=== PATIENT | female | born 1945 | race Caucasian/White ===

== ENCOUNTER 2017-05-05 12:13 | Outpatient (CLI) | payer MEDICARE, MEDICAID ==
[2017-05-05 15:14] LABS: #Eosinphils 0.4 thou/uL (0.0-0.7); #Lymphocytes 1.8 thou/uL (1.20-3.40); #Monocytes 0.5 thou/uL (0.11-0.59); #Neutrophils 4.5 thou/uL (1.40-6.50); %Basophils 0.5 % (0.0-1.0); %Eosinophils 5.8 % (0.0-10.0); %Lymphocytes 24.7 % (21.0-51.0); %Monocytes 7.4 % (0.0-10.0); Hematocrit 41.2 % (36.0-47.0); Mean Platelet Volume 6.8 fL (7.4-10.4); Red Blood Cell (RBC) Count 5.15 mill/uL (4.20-5.40); White Blood Cell (WBC) Count 7.4 thou/uL (4.8-10.8)
[2017-05-05 15:31] LABS: Prothrombin Time 12.8 SEC (12.0-14.7)
[2017-05-05 15:32] LABS: Bilirubin Negative (Negative); Blood, Urine Negative (Negative); Glucose, Urine (Dipstick) Negative (Negative); Ketone, Urine Negative (Negative); Nitrite Positive (Negative); Protein, Urine (Dipstick) Negative (Neg-Trace); Urobilinogen 0.2 mg/dL (0.2-1.0)
[2017-05-05 15:38] LABS: Anion Gap 14 mmol/L (10-20); BUN (Urea Nitrogen) 15 mg/dL (9.8-20.1); Calc. Creatinine Clearance 0 mL/min (70-130); Calcium 9.3 mg/dL (7.8-10.44); Carbon Dioxide 20 mmol/L (23-31); Chloride 105 mmol/L (98-107); Estimated GFR-MDRD 63
[2017-05-05 15:42] LABS: Bacteria/HPF 4+ HPF (None Seen); Hyaline Casts/LPF 0-3 HYALINE CAST LPF (0-3 Hyaline); RBC/HPF 0-3 HPF (0-3); Squamous Epithelial 0-3 HPF (0-3)
--- NOTE | 2017-05-05 15:49 | RAD ---
PA AND LATERAL CHEST: History: Pre-operative evaluation. FINDINGS: Comparison made with 02-12-16. The heart size is normal. The lungs are well expanded with stable chronic changes. No confluent area s of consolidation, pneumothorax or pleural effusions are seen. Degenerative changes of the spine. IMPRESSION: No acute process. POS: [facility]
--- NOTE | 2017-05-06 07:28 | EKG ---
Test Reason : PREOP Blood Pressure : / mmHG Vent. Rate : 056 BPM Atrial Rate : 056 BPM P-R Int : 202 ms QRS Dur : 090 ms QT Int : 480 ms P-R-T Axes : 062 -10 -25 degrees QTc Int : 463 ms Poor data quality, interpretation may be adversely affected Sinus bradycardia Nonspecific ST abnormality Abnormal ECG When compared with ECG of 12-FEB-2016 09:16, ST now depressed in Inferior leads QT has lengthened Confirmed by DR. Андрей MILNER ([id number]) on 05/06/2017 7:28:13 AM Referred By: REJI Confirmed By:DR. Андрей MILNER
== END 2017-05-05 12:14 | disposition home or self-care (01) ==
LOC: LABBT 12:13
PROVIDERS: ATTEND Orthopaedic Surgery
DX: Z01.818 Encounter for other preprocedural examination (principal); M16.12 Unilateral primary osteoarthritis, left hip
CPT/HCPCS: 71020; 80048; 81001; 85025; 85610; 85730; 87081; 93005; 93010

== ENCOUNTER 2017-05-05 12:30 | Inpatient (IN) | payer MEDICARE, MEDICAID ==
[2017-05-26] MEDS ORDERED: Senokot S 8.6-50 MG TAB PO PRN (08:59)
[2017-05-26] MEDS ORDERED: Ondansetron HCl/PF 4 MG/2 ML Vial IVP PRN ×2 (09:00→16:25)
[2017-05-26] MEDS ORDERED: HYDROcodone/Acetaminophen 10/325 mg Tablet PO PRN ×2 (09:00)
[2017-05-26] MEDS ORDERED: Tranexamic Acid 1,000 MG in Sodium Chloride 0.9% 100 ML IVPB SCH (09:00)
[2017-05-26] MEDS ORDERED: traMADol HCl 50 MG TAB PO PRN (09:00)
[2017-05-26] MEDS ORDERED: diphenhydrAMINE 25 MG CAP PO PRN ×2 (09:00→16:25)
[2017-05-26] MEDS ORDERED: Fentanyl 100 MCG/2 ML VIAL SLOW IVP PRN ×2 (09:00)
[2017-05-26] MEDS ORDERED: Promethazine HCl 25 MG/ML VIAL IM PRN ×3 (09:00→16:25)
[2017-05-26] MEDS ORDERED: Acetaminophen 325 MG TAB PO PRN (09:00)
[2017-05-26] MEDS ORDERED: Zolpidem Tartrate 5 MG TAB PO PRN ×2 (09:00→16:25)
[2017-05-26] MEDS ORDERED: CEFAZOLIN/Water 2 GM/20 ML SYRINGE ONE (11:37)
[2017-05-26] MEDS ORDERED: Tranexamic Acid 1,000 MG/100 ML BAG ONE ×2 (11:37→15:30)
[2017-05-26] MEDS ORDERED: Midazolam HCl 2 mg/2 ml Vial ONE ×2 (11:45→15:57)
[2017-05-26] MEDS ORDERED: Fentanyl 100 MCG/2 ML VIAL ONE ×4 (11:46→17:13)
[2017-05-26] MEDS ORDERED: Phenylephrine 10 MG/NS 250 ML 250 ML ONE (13:09)
[2017-05-26] MEDS ORDERED: Bupivacaine/Epinephrine 0.25% 30 ML VIAL ONE (13:09)
[2017-05-26] MEDS ORDERED: Vancomycin HCl 1.5 GM, Admixture Fee 1 EACH in Sodium Chloride 0.9% 250 ML 300 ML IVPB SCH (13:30)
[2017-05-26] MEDS ORDERED: PHENYLEPHRINE-NS 100 MCG/ML 10 ML SYRINGE ONE (13:41)
[2017-05-26] MEDS ORDERED: Dexamethasone 20 MG/5 ML VIAL ONE (13:41)
[2017-05-26] MEDS ORDERED: ePHEDrine/0.9% NaCl/PF SYRINGE 50 mg/10 ml ONE (13:41)
[2017-05-26] MEDS ORDERED: Glycopyrrolate 0.2 MG/ML 5 ML SYRINGE ONE (13:41)
[2017-05-26] MEDS ORDERED: Propofol 200 MG/20 ML VIAL ONE (13:41)
[2017-05-26] MEDS ORDERED: Promethazine HCl 25 MG/ML VIAL SLOW IVP PRN (14:50)
[2017-05-26] MEDS ORDERED: Bupivacaine 0.25% HCL 30 ML VIAL ONE (15:23)
[2017-05-26] MEDS ORDERED: Morphine 4 MG/ML VIAL ONE (15:57)
[2017-05-26] MEDS ORDERED: Naloxone HCl 0.4 mg/ml Vial IV PRN (16:25)
[2017-05-26] MEDS ORDERED: HYDROmorphone 10 mg/100 ml CADD IVPB PRN (16:25)
[2017-05-26] MEDS ORDERED: diphenhydrAMINE 50 MG/ML VIAL IM PRN (16:25)
[2017-05-26] MEDS ORDERED: diphenhydrAMINE 50 MG/ML VIAL IVP PRN (16:25)
[2017-05-26] MEDS ORDERED: [UNRECOGNIZED DRUG - REMARK] FS SCH (16:30)
[2017-05-26] MEDS ORDERED: diphenhydrAMINE 50 MG/ML VIAL ONE (17:47)
[2017-05-26] MEDS ORDERED: HYDROmorphone HCl/PF 0.1 MG/ML 100 ML ONE (18:13)
[2017-05-26] MEDS: Ketorolac Tromethamine 30 MG/ML VIAL IVP SCH (19:22)
--- NOTE | 2017-05-26 20:13 | RAD ---
LEFT HIP TWO VIEWS 05/26/17 HISTORY: Left hip prosthesis. FINDINGS: Total hip prosthesis is in place. No complication is evident. Soft tissue gas is noted. IMPRESSION: Left hip prosthesis is in good radiographic position. POS: [facility]
[2017-05-26] MEDS: Metoprolol Tartrate 25 MG TAB PO SCH ×2 (21:48→21:51)
[2017-05-26] MEDS: Aspirin 325 MG TAB PO SCH ×2 (21:50)
[2017-05-26] MEDS: CEFAZOLIN/Water 2 GM/20 ML SYRINGE SLOW IVP SCH ×2 (21:51→21:53)
[2017-05-26] MEDS: Amlodipine 10 MG TAB PO SCH (21:51)
[2017-05-26] MEDS: Sodium Chloride 0.9% 1,000 ML IV SCH ×2 (21:51→21:52)
[2017-05-26] MEDS: tiZANidine HCl 4 MG TAB PO SCH (21:52)
--- NOTE | 2017-05-26 23:14 | PDOC.PN ---
- Subjective Encounter Start Date: 05/26/17 Encounter Start Time: 23:12 CC; S/P Left KRIS SUB: Consult called for medical management Pt says pain controlled - Objective Vital Signs & Weight: Vital Signs (12 hours) Temp Pulse Resp BP Pulse Ox 05/26/17 21:51 74 05/26/17 18:51 97.6 F 74 18 125/52 L 92 L Weight Weight 200 lb Phys Exam - Physical Examination Constitutional: NAD HEENT: moist MMs Neck: no JVD Respiratory: no wheezing, no rales, no rhonchi Cardiovascular: RRR, no significant murmur, no rub Gastrointestinal: soft, non-tender left hip decrease range of motion Dx/Plan - Plan * . Pt is 72 yrs old female now admitted to hospital due to left KRIS 1. S/P Left KRIS + Pain + DVT prophylaxis: Management per primary team Monitor respiratory status closely 2. H/O HTN: Monitor bp closely Continue BP meds 3. H/O Insomnia + Macular degeneration: Continue home meds Case d/w pt & RN
[2017-05-27] MEDS: tiZANidine HCl 4 MG TAB PO SCH ×3 (01:14→21:04)
[2017-05-27] MEDS: Ketorolac Tromethamine 30 MG/ML VIAL IVP SCH ×4 (01:16→21:01)
[2017-05-27 05:21] LABS: Mean Platelet Volume 7.3 fL (7.4-10.4); Red Blood Cell (RBC) Count 3.85 mill/uL (4.20-5.40); White Blood Cell (WBC) Count 8.1 thou/uL (4.8-10.8)
[2017-05-27] MEDS: Sodium Chloride 0.9% 1,000 ML IV SCH ×3 (06:51→23:09)
[2017-05-27] MEDS: Levothyroxine Sodium 75 MCG TAB PO SCH (06:53)
[2017-05-27] MEDS: Metoprolol Tartrate 25 MG TAB PO SCH ×2 (08:15→21:03)
[2017-05-27] MEDS: Amlodipine 10 MG TAB PO SCH (08:16)
[2017-05-27] MEDS: Aspirin 325 MG TAB PO SCH ×2 (08:16→21:03)
[2017-05-27] MEDS: Senokot S 8.6-50 MG TAB PO SCH ×2 (08:16→21:09)
[2017-05-27] MEDS: Multivitamin W/ Minerals 1 TAB PO SCH (08:17)
[2017-05-27] MEDS: Ferrous Gluconate 324 MG TAB PO SCH ×2 (08:17→18:13)
[2017-05-27] MEDS ORDERED: FLU VACC TS2017-18 (>65YR) 0.5 ML SYRINGE IM ONE (08:30)
[2017-05-27 08:32] LABS: Anion Gap 12 mmol/L (10-20); BUN (Urea Nitrogen) 15 mg/dL (9.8-20.1); Calc. Creatinine Clearance 90 mL/min (70-130); Calcium 8.5 mg/dL (7.8-10.44); Carbon Dioxide 22 mmol/L (23-31); Chloride 107 mmol/L (98-107); Estimated GFR-MDRD 67
[2017-05-27 08:44] VITALS: BMI 36.0
[2017-05-27] MEDS ORDERED: Fentanyl 20 MCG/ML 250 ML IVPB SCH (12:30)
--- NOTE | 2017-05-27 16:08 | PDOC.PN ---
- Subjective Encounter Start Date: 05/27/17 Encounter Start Time: 16:07 Patient seen and examined. No new complaints. No overnight events - Objective MAR Reviewed: Yes Vital Signs & Weight: Vital Signs (12 hours) Temp Pulse Resp BP Pulse Ox Pulse Ox Pulse Ox 05/27/17 16:05 98.6 F 91 16 108/63 62 L 05/27/17 11:40 98.7 F 58 L 12 101/61 94 L 05/27/17 11:18 92 L 89 L 05/27/17 08:16 74 05/27/17 08:10 98.2 F 73 16 109/65 94 L Pulse Ox 05/27/17 16:05 05/27/17 11:40 05/27/17 11:18 90 L 05/27/17 08:16 05/27/17 08:10 Weight Admit Weight 200 lb Weight 200 lb I&O: 05/26/17 05/27/17 05/28/17 06:59 06:59 06:59 Output Total 1725 Balance -1725 Result Diagrams: 05/27/17 04:37 05/27/17 04:34 Phys Exam - Physical Examination Constitutional: NAD HEENT: PERRLA Neck: no JVD Respiratory: no wheezing Cardiovascular: RRR Gastrointestinal: non-tender Musculoskeletal: pulses present Neurological: moves all 4 limbs Psychiatric: A&O x 3 Dx/Plan (1) Left hip pain Code(s): M25.552 - PAIN IN LEFT HIP Status: Acute Comment: s/p surg (2) Obesity (BMI 30-39.9) Code(s): E66.9 - OBESITY, UNSPECIFIED Status: Acute (3) Status post total hip replacement, right Code(s): Z96.641 - PRESENCE OF RIGHT ARTIFICIAL HIP JOINT Status: Acute (4) Hyperlipidemia Code(s): E78.5 - HYPERLIPIDEMIA, UNSPECIFIED Status: Chronic (5) Hypertension Code(s): I10 - ESSENTIAL (PRIMARY) HYPERTENSION Status: Chronic Qualifiers: Hypertension type: essential hypertension Qualified Code(s): I10 - Essential (primary) hypertension Comment: Resume home Norvasc 5mg daily, Metoprolol 25mg BID (6) Hypothyroidism Code(s): E03.9 - HYPOTHYROIDISM, UNSPECIFIED Status: Chronic - Plan * f/u ortho plan * continue current mx
[2017-05-27] MEDS ORDERED: Bisacodyl 10 MG SUPP PR SCH (17:45)
[2017-05-28 04:26] LABS: #Eosinphils 0.4 thou/uL (0.0-0.7); #Lymphocytes 1.3 thou/uL (1.20-3.40); #Monocytes 0.6 thou/uL (0.11-0.59); #Neutrophils 4.9 thou/uL (1.40-6.50); %Basophils 0.5 % (0.0-1.0); %Eosinophils 6.1 % (0.0-10.0); %Lymphocytes 17.7 % (21.0-51.0); %Monocytes 7.9 % (0.0-10.0); Hematocrit 30.1 % (36.0-47.0); Mean Platelet Volume 7.5 fL (7.4-10.4); Red Blood Cell (RBC) Count 3.68 mill/uL (4.20-5.40); White Blood Cell (WBC) Count 7.2 thou/uL (4.8-10.8)
[2017-05-28 04:30] LABS: Hematocrit 30.4 % (36.0-47.0); Mean Platelet Volume 7.1 fL (7.4-10.4); White Blood Cell (WBC) Count 7.1 thou/uL (4.8-10.8)
[2017-05-28 04:41] LABS: Anion Gap 10 mmol/L (10-20); BUN (Urea Nitrogen) 11 mg/dL (9.8-20.1); Calc. Creatinine Clearance 87 mL/min (70-130); Calcium 8.9 mg/dL (7.8-10.44); Carbon Dioxide 24 mmol/L (23-31); Chloride 107 mmol/L (98-107); Estimated GFR-MDRD 67; Phosphorus 3.2 mg/dL (2.3-4.7)
[2017-05-28] MEDS: Ketorolac Tromethamine 30 MG/ML VIAL IVP SCH ×2 (05:22→13:17)
[2017-05-28] MEDS: Levothyroxine Sodium 75 MCG TAB PO SCH (05:23)
[2017-05-28] MEDS: Aspirin 325 MG TAB PO SCH (08:32)
[2017-05-28] MEDS: Metoprolol Tartrate 25 MG TAB PO SCH (08:32)
[2017-05-28] MEDS: Ferrous Gluconate 324 MG TAB PO SCH (08:32)
[2017-05-28] MEDS: Amlodipine 10 MG TAB PO SCH (08:32)
[2017-05-28] MEDS: tiZANidine HCl 4 MG TAB PO SCH (08:33)
[2017-05-28] MEDS: Multivitamin W/ Minerals 1 TAB PO SCH (08:33)
[2017-05-28] MEDS: Senokot S 8.6-50 MG TAB PO SCH ×2 (08:33→08:35)
[2017-05-28] MEDS ORDERED: HYDROcodone/Acetaminophen 10/325 mg Tablet PO PRN (09:27)
[2017-05-28] MEDS: HYDROcodone/Acetaminophen 10/325 mg Tablet PO PRN ×2 (09:38→13:13)
[2017-05-28 11:44] VITALS: BP 93/57; TEMP 98.5
--- NOTE | 2017-05-29 03:31 | DIS ---
DATE OF DISCHARGE: 05/28/2017 DISCHARGE DISPOSITION: Home. PRIMARY DISCHARGE DIAGNOSES: Elective left total hip replacement arthroplasty. DISCHARGE MEDICATIONS: Zanaflex 4 mg twice a day, Senokot 6 mg as needed, Lopressor 25 mg twice a da y, levothyroxine 75 mcg p.o. daily, Binford 10/325 mg 1-2 tablets q.6 hours as needed, vitamin D3 2000 units p.o. daily, aspirin 325 mg twice a day and amlodipine 10 mg daily. CODE STATUS: Full code. ALLERGIES: CITALOPRAM, DULOXETINE, GABABENTIN, PREGABALIN and SERTRALINE. HOSPITAL COURSE: Ms. Solis is a 72-year-old female who was admitted for an elective left total hip arthroplasty. She underwent the procedure on 05/26/2017. [facility] was consulted for medical management. She has a history of hypertension and insomnia. These were both stable during her hospital stay and she had an uneventful postoperative course and was subsequently able to be disc harged home on 05/28/2017 in good condition.
--- NOTE | 2017-06-02 16:37 | OP ---
DATE OF PROCEDURE: 05/26/2017 PREOPERATIVE DIAGNOSIS: Left hip end stage bicompartmental osteoarthritis. POSTOPERATIVE DIAGNOSIS: Left hip end stage bicompartmental osteoarthritis. OPERATIVE PROCEDURE: Press-fit left total hip arthroplasty. SURGEON: Marquis Garcia M.D. TELETYPESETTER MONITOR: Mike Bradford PA-C ANESTHESIA: General via endotracheal tube augmented with indwelling epidural. COMPONENTS USED: [employer] size 3 pressfit hip stem with a 50 mm pressfit acetabular shell , 36 mm fixed bearing insert, and 40-5 femoral head. FINDINGS: End-stage severe degenerative bicompartmental disease, bone on bone arthrosis, periarticul ar osteophyte formation, large serous effusion, hypertrophic synovium. ESTIMATED BLOOD LOSS: 100 mL. DRAINS: None. SPECIMENS: None. COUNTS: Correct. INDICATIONS FOR SURGERY: Shell is a 72-year-old white female who has had progressive left hip, groin , and thigh pain amplified with standing and walking for the last 5-7 years. She has failed conserva tive management and elected to proceed with total hip arthroplasty as definitive treatment of her florencia n. PROCEDURE IN DETAIL: After informed consent was obtained in the preoperative holding area, the patie nt was taken to the operative suite where general anesthesia was induced. The patient was then posit ioned in the lateral decubitus position. The hip was then prepped and draped in usual sterile fashio n. The patient received preoperative antibiotics. Prior to incision, time-out was called and all me mbers of the surgical team agreed upon site, surgeon, and patient. After this, a longitudinal incisi on was made directly over the trochanter, noted by palpation extending 2 fingerbreadths above and bel ow the trochanter. The deeper subcutaneous layer was undermined with Bovie electrocautery. The ilio tibial band was encountered and incised sharply and the plane below this was developed bluntly. A [facility] retractor was placed to hold this opened. The lateral aspect of the trochanter and the abduct or muscles were encountered and then reflected anteriorly off the trochanter using Bovie electrocaute ry. Once this was completed, the anterior capsule was then encountered and identified and copious ca psulotomy was carried out, exposing the femoral neck and head. Dislocation maneuver was then performe d and an in situ provisional neck cut was then made using the oscillating saw. Attention was then tu rned to acetabular preparation and sequential reaming was carried out up to the appropriate diameter and a trial was then malleted into place with good firm resistance and no pullout. The permanent manuel tabular shell was then malleted squarely into place, as was the appropriate liner. Once completed, t he wound was copiously irrigated and attention was then turned to femoral preparation. Flexion and ex ternal rotation was performed of the exposed thigh and femoral elevators were then placed at the prox imal aspect of the wound. Canal finder was used to establish the length of the canal and sequential reaming was carried out, followed by broaching. Once the appropriate stability was established with the trial broaches with both flexion, extension and rotational stability, we did trial with neutral a nd 2 mm offset incremental necks. Once the appropriate size was decided upon, with good stability no ayesha with flexion, extension, internal and external rotation and shuck being negative, we removed the femoral trial broach and malletted into place the permanent prosthesis with good firm fit, which was also stable to rotation. Again, the hip felt very stable to flexion, extension, internal and externa l rotation. Leg lengths appeared near anatomic clinically and we were quite happy with prosthesis pl acement. Copious irrigation was then carried out through the entirety of the wound. Primary closure of the abductors was accomplished with interrupted #2 Vicryl [id number] stitches and the IT ban d was then closed with interrupted #2 Vicryl, oversewn with a #2 running barbed Quill stitch. Subcut aneous fascia was closed with running barbed Quill stitch and a subcuticular Monocryl barbed Quill st itch was used for skin closure and augmented with skin cement. A sterile dressing was applied. The p rocedure was terminated without any complication. All counts were correct. The patient was awakened in the operative suite and taken to the recovery room in stable condition.
== END 2017-05-28 15:53 | disposition home health service (06) | DRG 470 ==
LOC: SURG B 05-26 08:44 → SJJU 05-26 18:11
PROVIDERS: ADMIT Orthopaedic Surgery; ATTEND Orthopaedic Surgery
PROC: 0SRB01A Replacement of Left Hip Joint with Metal Synthetic Substitute, Uncemented, Open Approach (ICD-10-PCS; principal; 2017-05-26)
DX: M16.12 Unilateral primary osteoarthritis, left hip (principal); E66.9 Obesity, unspecified; I10 Essential (primary) hypertension; G47.00 Insomnia, unspecified; Z88.8 Allergy status to other drugs, medicaments and biological substances; Z79.82 Long term (current) use of aspirin; H35.30 Unspecified macular degeneration; Z96.641 Presence of right artificial hip joint; Z68.36 Body mass index [BMI] 36.0-36.9, adult; E78.5 Hyperlipidemia, unspecified; E03.9 Hypothyroidism, unspecified; Z23 Encounter for immunization
CPT/HCPCS: 36415; 80048; 80069; 85027; 86850; 86900; 86901; 90471; 90682; C1776; G0008; G8978-GP-CM; G8979-GP-CJ; G8987-GO-CL; G8988-GO-CJ; J1100; J1170; J1200; J1885; J2250; J2270; J2704; J3010; J3370; J7050; Q2036; S0020

== ENCOUNTER 2018-03-12 09:15 | Outpatient (CLI) | payer MEDICARE, MEDICAID | END 2018-03-12 09:16 | disposition home or self-care (01) | LOC: BICMRI 09:15 | PROVIDERS: ATTEND Orthopaedic Surgery | DX: M47.26 Other spondylosis with radiculopathy, lumbar region (principal); M48.061 Spinal stenosis, lumbar region without neurogenic claudication; M51.15 Intervertebral disc disorders with radiculopathy, thoracolumbar region | CPT/HCPCS: 72148 ==

== ENCOUNTER 2018-03-23 17:03 | Observation (INO) | payer MEDICARE, MEDICAID ==
[~2018-03-23 17:03] MED LIST: ISOVUE-370 76%-LOCM 1 ML ONE
--- NOTE | 2018-03-23 17:49 | RAD ---
SINGLE VIEW OF THE CHEST: 03/23/18 COMPARISON: 12/11/17 HISTORY: Chest pain and shortness of breath. FINDINGS: Single view of the chest shows a normal sized cardiomediastinal silhouette. There is no evidence of c onsolidation, mass, or pleural effusion. The bones are unremarkable. IMPRESSION: No evidence of acute cardiopulmonary disease. POS: [facility]
[2018-03-23 17:58] LABS: #Basophils 0.1 thou/uL (0.0-0.2); #Eosinphils 0.4 thou/uL (0.0-0.7); #Lymphocytes 1.6 thou/uL (1.20-3.40); #Monocytes 0.5 thou/uL (0.11-0.59); #Neutrophils 5.7 thou/uL (1.40-6.50); %Basophils 0.7 % (0.0-1.0); %Eosinophils 5.2 % (0.0-10.0); %Lymphocytes 19.1 % (21.0-51.0); %Monocytes 5.8 % (0.0-10.0); %Neutrophils 69.3 % (42.0-75.0); Hemoglobin 12.1 g/dL (12.0-16.0); Mean Corpuscular HGB CONC 33.2 g/dL (32.0-36.0); Mean Corpuscular Hemoglobin 26.2 pg (27.0-31.0); Platelet Count 378 thou/uL (130-400); RBC Distribution Width 14.1 % (11.5-14.5); Red Blood Cell (RBC) Count 4.61 mill/uL (4.20-5.40); White Blood Cell (WBC) Count 8.2 thou/uL (4.8-10.8)
[2018-03-23 18:21] LABS: CKMB 2.5 ng/mL (0-6.6); Troponin I Less than 0.010 ng/mL (< 0.028)
[2018-03-23 18:30] LABS: ALT (SGPT) 13 U/L (8-55); AST (SGOT) 15 U/L (5-34); Albumin 4.1 g/dL (3.4-4.8); Alkaline Phosphatase 66 U/L (40-150); Anion Gap 14 mmol/L (10-20); BUN (Urea Nitrogen) 13 mg/dL (9.8-20.1); Bilirubin, Total 0.3 mg/dL (0.2-1.2); CK (CPK) 92 U/L (29-168); Calc. Creatinine Clearance 0 mL/min (70-130); Calcium 9.5 mg/dL (7.8-10.44); Carbon Dioxide 21 mmol/L (23-31); Chloride 109 mmol/L (98-107); Estimated GFR-MDRD 68; Globulin 3.2 g/dL (2.4-3.5); Glucose 94 mg/dL (83-110); Potassium 3.7 mmol/L (3.5-5.1); Protein, Total 7.3 g/dL (6.0-8.3); Sodium 140 mmol/L (136-145)
[2018-03-23] MEDS ORDERED: Acetaminophen 500 MG TAB ONE (20:20)
--- NOTE | 2018-03-23 21:37 | CT ---
CTA OF THE CHEST WITH CONTRAST: 03/23/18 COMPARISON: 01/31/14. HISTORY: Shortness of breath. TECHNIQUE: Multiple contiguous axial images were obtained in a CTA of the chest with contrast per pulmonary embo lism protocol. 3D oblique MIP reformats and direct coronal reformats were performed. FINDINGS: Pulmonary arteries are well opacified without filling defects to suggest pulmonary emboli. There are stable enlarged and calcified hilar and mediastinal lymph nodes. Global cardiomegaly is seen. Calcifi cations are seen in the coronary arteries, aorta, and mitral/aortic valves. Subtle air space opacities are see in the right upper lobe which may represent early infiltrates. A c alcified granuloma is seen in the left lower lobe. No pneumothorax or pleural effusion are seen. The visualized subdiaphragmatic structures are unremarkable. Degenerative changes are seen in the spi ne. IMPRESSION: 1. No evidence of pulmonary thromboembolism. 2. Air space opacities in the right upper lobe may represent new acute infiltrates. POS: [facility]
[2018-03-23 23:40] LABS: Troponin I Less than 0.010 ng/mL (< 0.028)
[2018-03-24 01:12] VITALS: BMI 37.6
[2018-03-24 01:57] LABS: Troponin I Less than 0.010 ng/mL (< 0.028)
[2018-03-24] MEDS ORDERED: Acetaminophen 325 MG TAB PO PRN (08:48)
[2018-03-24] MEDS ORDERED: hydrALAZINE 20 MG/ML VIAL SLOW IVP PRN (08:48)
[2018-03-24] MEDS ORDERED: Senokot S 8.6-50 MG TAB PO PRN (08:48)
[2018-03-24] MEDS ORDERED: Aspirin 325 MG TAB PO SCH (09:00)
[2018-03-24] MEDS ORDERED: Metoprolol Tartrate 25 MG TAB PO SCH (09:00)
[2018-03-24] MEDS ORDERED: Enoxaparin Sodium 40 MG/0.4 ML SYRINGE SC SCH (09:00)
[2018-03-24] MEDS ORDERED: Amlodipine 10 MG TAB PO SCH (09:00)
[2018-03-24] MEDS ORDERED: Benzonatate 100 MG CAP PO SCH (09:00)
[2018-03-24 09:15] LABS: Cardiac Risk 7.2 (Less than 4.5)
--- NOTE | 2018-03-24 13:58 | NM ---
CARDIAC SPECT: HISTORY: A 73-year-old female with chest pain, TIA, and hypertension. TECHNIQUE: A stress only myocardial perfusion scan was performed following the intravenous administration of 27. 2 millicuries of technetium 99m sestamibi. Pharmacologic stress with adenosine was monitored and int erpreted by MARIA LUISA Hardin. FINDINGS: Homogeneous tracer distribution is seen in the myocardial segments on the post stress images. GATED SPECT LVEF: 70%. WALL MOTION EXAM: Normal. IMPRESSION: Normal post stress myocardial perfusion scan. POS: [facility]
[2018-03-24] MEDS ORDERED: Nitroglycerin 2% Ointment 1 INCH/1 GM Packet TOP SCH (14:00)
[2018-03-24] MEDS ORDERED: ADENOSINE 60 MG/20 ML VIAL ONE (15:23)
[2018-03-24 15:34] VITALS: BP 138/61; TEMP 98.1
--- NOTE | 2018-03-24 16:00 | HP ---
PRIMARY CARE PHYSICIAN: CHIEF COMPLAINT: Chest pain. HISTORY OF PRESENT ILLNESS: Ms. Solis is a pleasant 73-year-old female that has a history of hypert ension and history of mitral valve prolapse. She was in her usual state of health until about a week ago. She started having some tightness in her chest. She says it started while she was walking to the bathroom. She says that it cannot get as bad as an 8/10 and she typically gets short of breath w ith it. She says she can be extremely out of breath. She has also noted some swelling in her ankles as well. She denies any associated symptoms such as nausea, vomiting or diaphoresis. She also does not admit to any waking up through the night short of breath and there is no orthopnea. She has als o had no palpitations. Her symptoms got progressively worse and for this reason she came to the ER f or evaluation. In the ER, she had a CT angiogram of her chest which was negative for pulmonary embol ism and she is being admitted for further evaluation. The patient says that she had pneumonia recent ly on the left side and was treated for this, but her symptoms today are not similar to what she had before. She denies any cough or congestion, or fever or chills. REVIEW OF SYSTEMS: All systems were reviewed and are negative except for that mentioned in the histo ry of present illness. PAST MEDICAL HISTORY: Significant for hypertension, mitral valve prolapse, she says she has a heart murmur in her mitral valve and neuropathy. PAST SURGICAL HISTORY: She has had a hysterectomy, tonsillectomy and 2 hip replacement surgeries. ALLERGIES: CITALOPRAM, CYMBALTA, DULOXETINE, GABAPENTIN, ZOLOFT, PAXIL, LYRICA, and XANAX. SOCIAL HISTORY: She is . She has 2 sons. She says that one of her grown sons recently move d in with her. She denies any alcohol use or drug use. She is and she would like to be a D NR and she says [employer] could be her surrogate decision maker, but they have never discussed that. FAMILY HISTORY: Significant for Parkinson's. CURRENT MEDICATIONS: Include Tessalon Perles 100 mg t.i.d., amlodipine 10 mg daily, metoprolol 25 mg twice a day, levothyroxine 75 mcg daily and Senokot p.r.n. PHYSICAL EXAMINATION: GENERAL: She is alert and oriented. She appears to be in no acute distress. She is well-developed and well-nourished. VITAL SIGNS: Blood pressure was 148/67, heart rate 74, respiratory rate of 22, O2 sats 94% on room a ir, temperature was 97.9. HEENT: Her pupils are equal, round, and reactive. Extraocular muscles are intact. Her sclerae are anicteric. Throat: There was no erythema, no exudates. NECK: No adenopathy, no bruits. LUNGS: Clear to auscultation. There was no wheezing, no rales, no rhonchi. She did have some rales in the right base going up to about the mid lung field. Air movement was symmetric. CARDIOVASCULAR: She has a normal S1, S2. I did not appreciate an S3 or S4. No murmurs. She had a grade 2/6 systolic murmur to the axilla. No rubs. ABDOMEN: Obese, it is soft, it is nontender, nondistended. There is no organomegaly. EXTREMITIES: She has got trace pedal edema. Good dorsalis pedis pulses. No calf tenderness. Jessica l skin turgor. NEUROLOGIC: Her cranial nerves II-XII are grossly intact. Muscle strength is 5/5 and it is grossly nonfocal. LABORATORY RESULTS: Sodium is 140, potassium 3.7, chloride is 109, CO2 is 21, BUN of 13, creatinine 0.82 and glucose is 94. Troponin was less than 0.010. White blood cell count 8.2, hemoglobin 12.1, hematocrit is 36.4 and platelet count was 378. White blood cell count 8.2, hemoglobin 12.1, hematocr it is 36.4, platelet count is 378. Troponin 140, potassium 3.7, chloride is 109, CO2 is 21, BUN of 1 3, creatinine 0.82, glucose is 94. Troponins were negative. IMAGING DATA: Her EKG was sinus rhythm, the rate is 69. There were some voltage criteria for LVH, n o ST wave changes. This is by my reading. She also had a chest x-ray also by my reading. There was no evidence of any cardiomegaly. She did have some increasing in pulmonary vascular markings, but n o discrete infiltrate. ASSESSMENT AND PLAN: This is a 73-year-old female who presents to the emergency room with complaints of chest pain. She had a CT angiogram in the ER, which was negative for PE; however, there was some mention of infiltrates in the right upper lobe; however, this is not consistent with her symptomatol ogy. Therefore, evaluation for: 1. Chest pain. She does have a history of hypertension and she is postmenopausal and therefore it h as some risk for coronary artery disease. We will get a stress test and we will also get an echo giv en her history of mitral valvular disease. We will get a lipid panel. She has already ruled out and further recommendations are based on the above tests. 2. Hypertension. Her blood pressure appears to be fairly well controlled. We will go ahead and res tart her usual home medications.
--- NOTE | 2018-03-25 02:05 | DIS ---
DATE OF ADMISSION: 03/23/2018 DATE OF DISCHARGE: 03/24/2018 PRIMARY CARE PHYSICIAN: Saumya Schneider M.D. DISCHARGE DISPOSITION: Home. PRIMARY DISCHARGE DIAGNOSES: 1. Chest pain, probably due to pneumonia. 2. Probable pneumonia. 3. Hypertension. 4. Depression and anxiety. DISCHARGE MEDICATIONS: Omnicef 300 mg twice a day for 7 days, citalopram 20 mg daily, Lopressor 25 m g twice a day, docusate sodium p.o. as needed, levothyroxine 75 mcg daily, Benzonatate 100 mg t.i.d. and amlodipine 10 mg daily. PROCEDURES DONE DURING ADMISSION: The patient had a CT angiogram of the chest showing no evidence of any pulmonary thromboembolism. There was some airspace opacities in the right upper lobe, which cou ld represent a new infiltrate. CODE STATUS: DNR. ALLERGIES: ALPRAZOLAM, CITALOPRAM, DULOXETINE, GABAPENTIN, PAROXETINE and LYRICA. HOSPITAL COURSE: Ms. Solis is a pleasant 73-year-old female who presented to the emergency room wit h complaints of shortness of breath. She was evaluated in the ER and had a CT angiogram of the chest , which was negative for PE. There was some questionable infiltrates in the right upper lobe. She w as placed in observation and ruled out. She had a stress test, which was negative. Echo was ordered , but was pending at the time of discharge. Her chest pain was atypical and thought not to be due to a cardiac etiology and so it is therefore presumed that this is likely from pneumonia due to the fin dings on the CT scan. She also was complaining of having quite a bit of stress and anxiety at home. She had been treated with Celexa before in the past and had asked to be restarted on this medication . She will therefore be discharged home on the Celexa as well and will need to have close outpatient followup with her primary care physician.
[2018-03-25] MEDS ORDERED: Levothyroxine Sodium 75 MCG TAB PO SCH (06:00)
--- NOTE | 2018-04-03 17:56 | EKG ---
Test Reason : CP Blood Pressure : / mmHG Vent. Rate : 069 BPM Atrial Rate : 069 BPM P-R Int : 148 ms QRS Dur : 088 ms QT Int : 418 ms P-R-T Axes : 031 -12 013 degrees QTc Int : 447 ms Normal sinus rhythm Moderate voltage criteria for LVH, may be normal variant Cannot rule out Septal infarct , age undetermined Abnormal ECG Confirmed by CHLOÉ DURAND DO ([id number]), production editor AMY LAWLER ([id number]) on 04/03/2018 5:55:45 PM Referred By: Confirmed By:CHLOÉ DURAND DO
== END 2018-03-24 18:05 | disposition home or self-care (01) ==
LOC: ERS 17:03 → 2SW 22:23
PROVIDERS: ADMIT Hospitalist; ATTEND Hospitalist
DX: R07.9 Chest pain, unspecified (principal); I10 Essential (primary) hypertension; F41.8 Other specified anxiety disorders; Z79.899 Other long term (current) drug therapy; Z88.5 Allergy status to narcotic agent; Z88.8 Allergy status to other drugs, medicaments and biological substances
CPT/HCPCS: 71045; 71275; 78452; 80053; 80061; 82550; 82553; 83880; 84484 ×3; 85025; 93005; 93017; 94760; 99285; A9500; G0378 ×2; 36415; J0153

== ENCOUNTER 2018-04-15 23:35 | Inpatient (IN) | payer MEDICARE, MEDICAID ==
[2018-04-16 00:46] LABS: Troponin I 0.146 ng/mL (< 0.028)
[2018-04-16] MEDS ORDERED: Ondansetron HCl/PF 4 MG/2 ML Vial IVP PRN (02:17)
[2018-04-16] MEDS ORDERED: Ondansetron ODT 4 MG TAB SL PRN (02:17)
[2018-04-16 02:30] VITALS: BMI 38.5
[2018-04-16] MEDS: Acetaminophen 325 MG TAB PO PRN ×3 (03:21→20:57)
[2018-04-16 05:18] LABS: Troponin I 0.117 ng/mL (< 0.028)
[2018-04-16] MEDS ORDERED: Nitroglycerin 2% Ointment 1 INCH/1 GM Packet TOP SCH (06:00)
[2018-04-16 07:25] LABS: Troponin I 0.103 ng/mL (< 0.028)
[2018-04-16] MEDS ORDERED: Aspirin 325 MG TAB PO SCH (09:00)
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
[2018-04-16] MEDS: Amlodipine 5 MG TAB PO SCH (10:48)
[2018-04-16] MEDS: Enoxaparin Sodium 40 MG/0.4 ML SYRINGE SC SCH (10:49)
[2018-04-16] MEDS: Metoprolol Tartrate 25 MG TAB PO SCH ×2 (10:49→20:57)
[2018-04-16] MEDS ORDERED: Levothyroxine Sodium 75 MCG TAB PO SCH (11:00)
[2018-04-17] MEDS: Acetaminophen 325 MG TAB PO PRN ×2 (03:13→09:08)
[2018-04-17] MEDS ORDERED: Levothyroxine Sodium 75 MCG TAB PO SCH (06:00)
[2018-04-17] MEDS ORDERED: Aspirin 81 mg Enteric Coated Tablet PO SCH (09:00)
[2018-04-17] MEDS: Amlodipine 5 MG TAB PO SCH (09:01)
[2018-04-17] MEDS: Metoprolol Tartrate 25 MG TAB PO SCH (09:02)
[2018-04-17] MEDS: Enoxaparin Sodium 40 MG/0.4 ML SYRINGE SC SCH (09:02)
[2018-04-17 12:15] VITALS: BP 121/60; TEMP 96.2
--- NOTE | 2018-04-17 15:38 | CON ---
DATE OF CONSULT: 04/16/18 The patient is a 73-year-old woman who presents for evaluation of recurrent chest discomfort. The p atient has a long history of chest discomfort. She was last admitted in 03/2018 with chest pain. She at that time ended up in been a great deal of stress. She underwent a Cardiolite stress that reveal ed normal left ventricular ejection fraction 70% with no evidence of ischemia. The patient represent s after once again been under tremendous amount of stress with mid substernal chest discomfort. She states this discomfort was midsternal. It lasted for approximately an hour. She states that it subs equently resolved. The chest pain did not radiate. The patient's cardiac risk factors include hypertension and a family history of coronary artery disea se. PAST MEDICAL HISTORY: 1. Hypertension. 2. Mitral valve prolapse. 3. 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 PAST SURGICAL HISTORY: She has had a hysterectomy, tonsillectomy, hip replacements. FAMILY HISTORY: Positive family history of coronary artery disease. SOCIAL HISTORY: Nonsmoker. ALLERGIES: She is allergic to Xanax, gabapentin, Paxil, Lyrica, Zoloft, and Cymbalta. CURRENT MEDICATIONS: Metoprolol 25 b.i.d., Synthroid 75 daily, and Norvasc 10 daily. REVIEW OF SYSTEMS: Noticeable for extreme anxiety. Ten-point system otherwise unremarkable. No history of easy bruisin g or bleeding PHYSICAL EXAMINATION: GENERAL: Well-developed woman in no acute distress. VITAL SIGNS: Blood pressure 131/60. NECK: No jugular venous distention, no carotid bruits. LUNGS: Clear to auscultation. HEART: Regular rate and rhythm, normal S1, S2 with a II/ systolic murmur. ABDOMEN: Nondistended. EXTREMITIES: Showed no edema. VASCULAR: Radial pulses are 2+. LABORATORY DATA: White blood count 7.6, hemoglobin 12.0, hematocrit 37.7, platelets are 275. Sodium was 139, potassium 3.9, chloride 108, bicarbonate 20, BUN 18, creatinine is 0.89, glucose 111. Trop onin 0.031. BNP was 37. EKG reveals her to have normal sinus rhythm with occasional premature ventr icular contractions. IMPRESSION: 1. Chest pain, recurrent. 2. Hypertension. 3. Aortic stenosis. 4. Dyslipidemia. 5. Anxiety. This patient presents with recurrent chest discomfort. I discussed the option of medical therapy eddie niall invasive evaluation for definitive diagnosis. The patient prefers to undergo a cardiac catheter ization. This will be scheduled. Aspirin will be added to the patient's medical regimen. We will f ollow this patient with you through her hospitalization.
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
== END 2018-04-17 13:24 | disposition home or self-care (01) | DRG 313 ==
LOC: ERS 23:35 → 2NO 04-16 01:55 → OBSVTOIN 04-16 16:05
PROVIDERS: ADMIT Internal Medicine; ATTEND Internal Medicine
DX: R07.9 Chest pain, unspecified (principal); I35.0 Nonrheumatic aortic (valve) stenosis; I51.89 Other ill-defined heart diseases; E03.9 Hypothyroidism, unspecified; I11.0 Hypertensive heart disease with heart failure; H54.7 Unspecified visual loss; Z86.73 Personal history of transient ischemic attack (TIA), and cerebral infarction without residual deficits; E78.5 Hyperlipidemia, unspecified; F41.9 Anxiety disorder, unspecified
CPT/HCPCS: 36415; 90471; 90662; 93005; 93306; 99285; A4216; G0008; J1650

== ENCOUNTER 2018-06-28 09:50 | Day surgery (SDC) | payer MEDICARE, MEDICAID ==
[2018-06-24 15:16] VITALS: BMI 38.7
[2018-06-28] MEDS ORDERED: Fentanyl 100 MCG/2 ML VIAL ONE (12:17)
[2018-06-28] MEDS ORDERED: Midazolam HCl 2 mg/2 ml Vial ONE (12:17)
[2018-06-28] MEDS ORDERED: Iopamidol 370 76% 100 ML VIAL ONE (12:54)
[2018-06-28] MEDS ORDERED: Acetaminophen 500 MG TAB ONE (15:42)
--- NOTE | 2018-06-28 17:27 | EKG ---
Test Reason : PREOP Blood Pressure : / mmHG Vent. Rate : 054 BPM Atrial Rate : 054 BPM P-R Int : 184 ms QRS Dur : 092 ms QT Int : 508 ms P-R-T Axes : 045 000 -36 degrees QTc Int : 481 ms Sinus bradycardia with Premature atrial complexes T wave abnormality, consider inferior ischemia Prolonged QT Abnormal ECG When compared with ECG of 15-APR-2018 23:46, Premature ventricular complexes are no longer Present Premature atrial complexes are now Present T wave inversion more evident in Inferior leads Confirmed by CHENCHO SHEA ([id number]) on 06/28/2018 5:26:29 PM Referred By: CARTER Confirmed By:CHENCHO SHEA
--- NOTE | 2018-06-28 17:30 | CON ---
DATE OF CONSULTATION: HISTORY OF PRESENT ILLNESS: Ms. Solis is a 73-year-old woman with history of [id number] aortic stenosis. Peak gradient is 60. She has preserved left ventricular ejection fraction at 60% to 65%. Aortic valve area is 0.94 cm. She underwent cardiac catheterization today revealing severe three-vessel disease. Potential bypassable targets included LAD, diagonal, ramus, and right coronary artery. I have been asked to see her to discuss aortic valve replacement and coronary artery bypass grafting. She has shortness of breath and occasional chest pain at home with activity. Otherwise, she has no previous significant cardiac history. PAST MEDICAL HISTORY: 1. Hypertension. 2. Macular degeneration with blindness. PAST SURGICAL HISTORY: 1. Hysterectomy. 2. Tonsillectomy. 3. Bilateral hip replacement. SOCIAL HISTORY: She does not use tobacco. CURRENT MEDICATIONS: 1. Metoprolol 25 mg b.i.d. 2. Synthroid 75 mcg daily. 3. Norvasc 10 mg daily. ALLERGIES: 1. XANAX. 2. GABAPENTIN. 3. PAXIL. 4. LYRICA. 5. ZOLOFT. 6. CYMBALTA. REVIEW OF SYSTEMS: A 10-point review of systems is performed, is negative except as above. PHYSICAL EXAMINATION: GENERAL: This is a well-developed, well-nourished woman, resting comfortably in the recovery area. VITAL SIGNS: Her height is 61 inches, weight 212 pounds. BSA 1.96. Heart rate is 70 and regular. Blood pressure is 138/72. HEENT: Sclerae nonicteric. Pupils are equal and round bilaterally. NECK: Supple. She has no carotid bruits. CHEST: Clear bilaterally. HEART: Rhythm is regular without murmur. ABDOMEN: Soft and nontender with no masses. EXTREMITIES: No edema. VASCULAR: She has palpable carotid, radial, femoral, dorsalis pedis pulses bilaterally. VENOUS: There are no venous varicosities or venous stasis changes. PSYCHIATRIC: She is awake, alert, oriented to person, place, and time. LABORATORY DATA: Of note, hemoglobin is 12.1, platelet count is 306,000. Potassium is 4.3, and creatinine is 0.93. ASSESSMENT AND PLAN: This is a pleasant 73-year-old woman with severe aortic stenosis and three-vessel disease. I discussed coronary bypass grafting and valve replacement with a bioprosthetic valve. She is agreeable to proceed after William and let us know the time she wants to schedule. Job ID: [id number]
== END 2018-06-28 18:40 | disposition home or self-care (01) ==
LOC: CCL 09:50
PROVIDERS: ATTEND Internal Medicine Cardiovascular Disease
PROC: 4A023N7 Measurement of Cardiac Sampling and Pressure, Left Heart, Percutaneous Approach (ICD-10-PCS; principal; 2018-06-28)
PROC: B2101ZZ Fluoroscopy of Single Coronary Artery using Low Osmolar Contrast (ICD-10-PCS; 2018-06-28)
DX: I35.0 Nonrheumatic aortic (valve) stenosis (principal); I25.10 Atherosclerotic heart disease of native coronary artery without angina pectoris; I10 Essential (primary) hypertension; H54.7 Unspecified visual loss; Z96.643 Presence of artificial hip joint, bilateral; Z90.710 Acquired absence of both cervix and uterus; Z90.89 Acquired absence of other organs; Z88.8 Allergy status to other drugs, medicaments and biological substances; Z79.82 Long term (current) use of aspirin; Z79.899 Other long term (current) drug therapy
CPT/HCPCS: 76942; 93005; 93010; 93454; 99152; C1769; J1644; J2250; J3010

== ENCOUNTER 2018-07-07 11:15 | Inpatient (IN) | payer MEDICARE, MEDICAID ==
[2018-07-08] MEDS ORDERED: CEFAZOLIN 2 GM/50 ML BAG ONE (06:21)
[2018-07-08] MEDS ORDERED: Vancomycin HCl 1.5 GM in Sodium Chloride 0.9% 250 ML 300 ML IVPB SCH (06:30)
[2018-07-08] MEDS ORDERED: Fentanyl 250 MCG/5 ML VIAL ONE (06:41)
[2018-07-08] MEDS ORDERED: Midazolam HCl 5 mg/5 ml Vial ONE (06:41)
[2018-07-08] MEDS ORDERED: Albumin 5% 500 ML ONE (06:44)
[2018-07-08] MEDS ORDERED: Heparin 10,000 UNITS/1 ML VIAL 30,000 UNITS in Sodium Chloride 0.9% 1,000 ML IVPB SCH (06:45)
[2018-07-08] MEDS ORDERED: Phenylephrine HCL 10 MG/ML VIAL ONE (07:11)
[2018-07-08] MEDS ORDERED: Insulin Regular 300 UNITS/3 ML VIAL ONE (07:11)
[2018-07-08] MEDS ORDERED: Dexmedetomidine 200 MCG/2 ML VIAL ONE (07:12)
[2018-07-08] MEDS ORDERED: Dexamethasone 4 mg/ml Vial ONE (08:30)
[2018-07-08] MEDS ORDERED: Bupivacaine PF 0.5% 30 ML VIAL ONE (08:30)
[2018-07-08] MEDS ORDERED: Bupivacaine HCl 0.5%/Epinephrine 1:200,000/PF 30 ml Vial ONE (08:30)
[2018-07-08 11:48] LABS: Actual Bicarbonate (HCO3a) 19.3 mEq/L (22-28); Analyzer IN Cardio OR; Base Excess (BEa) -6.3 mEq/L (-2.0 to +3.0); CO2 Tension 38.8 mmHg (35.0-45.0); Calcium, Ionized 1.11 mmol/L (1.12-1.30); Carboxyhemoglobin (COHb) 0.3 gm% (0.0-3.0); Hemoglobin (Hb) 10.6 g/dL (12.0-16.0); O2 Tension (PaO2) 91.7 mmHg (> 70.0); Potassium - ABG Lab 3.98 mmol/L (3.70-5.30); pH, Arterial 7.32 (7.35-7.45)
[2018-07-08 11:48] LABS: Actual Bicarbonate (HCO3a) 19.6 mEq/L (22-28); Analyzer IN Cardio OR; Base Excess (BEa) -5.5 mEq/L (-2.0 to +3.0); CO2 Tension 37.1 mmHg (35.0-45.0); Calcium, Ionized 1.15 mmol/L (1.12-1.30); Hemoglobin (Hb) 11.6 g/dL (12.0-16.0); O2 Tension (PaO2) 108.7 mmHg (> 70.0); Potassium - ABG Lab 4.09 mmol/L (3.70-5.30); pH, Arterial 7.34 (7.35-7.45)
[2018-07-08 11:49] LABS: Actual Bicarbonate (HCO3v) 22 mEq/L (22-28); Analyzer IN Cardio OR; Base Excess -5.6 mEq/L (-2.0 to +3.0); Calcium, Ionized 1.06 mmol/L (1.16-1.32); Chloride (ABG LAB) 107 mmol/L (98-106); Hemoglobin (Hb) 8.1 g/dL (11.7-16.1); Potassium - ABG Lab 4.14 mmol/L (3.70-5.30); Sodium 137.6 mmol/L (133-146)
[2018-07-08 11:49] LABS: Actual Bicarbonate (HCO3a) 21.3 mEq/L (22-28); Analyzer IN Cardio OR; CO2 Tension 51.8 mmHg (35.0-45.0); Calcium, Ionized 1.06 mmol/L (1.12-1.30); Carboxyhemoglobin (COHb) 0.4 gm% (0.0-3.0); Hemoglobin (Hb) 7.9 g/dL (12.0-16.0); O2 Tension (PaO2) 490.9 mmHg (> 70.0); Potassium - ABG Lab 4.16 mmol/L (3.70-5.30)
[2018-07-08 11:50] LABS: Actual Bicarbonate (HCO3a) 22.4 mEq/L (22-28); Analyzer IN Cardio OR; Base Excess (BEa) -4.6 mEq/L (-2.0 to +3.0); CO2 Tension 51.2 mmHg (35.0-45.0); Calcium, Ionized 1.08 mmol/L (1.12-1.30); Carboxyhemoglobin (COHb) 0.7 gm% (0.0-3.0); Hemoglobin (Hb) 8.4 g/dL (12.0-16.0); Potassium - ABG Lab 3.82 mmol/L (3.70-5.30); pH, Arterial 7.26 (7.35-7.45)
[2018-07-08 11:50] LABS: Actual Bicarbonate (HCO3a) 23.8 mEq/L (22-28); Analyzer IN Cardio OR; Base Excess (BEa) -3.4 mEq/L (-2.0 to +3.0); CO2 Tension 55.4 mmHg (35.0-45.0); Calcium, Ionized 1.06 mmol/L (1.12-1.30); Carboxyhemoglobin (COHb) 0.2 gm% (0.0-3.0); Hemoglobin (Hb) 8.1 g/dL (12.0-16.0); Potassium - ABG Lab 4.25 mmol/L (3.70-5.30)
[2018-07-08 11:51] LABS: Actual Bicarbonate (HCO3a) 25.9 mEq/L (22-28); Analyzer IN Cardio OR; Base Excess (BEa) -0.4 mEq/L (-2.0 to +3.0); CO2 Tension 51.3 mmHg (35.0-45.0); Calcium, Ionized 1.05 mmol/L (1.12-1.30); Carboxyhemoglobin (COHb) 0.6 gm% (0.0-3.0); Hemoglobin (Hb) 8.3 g/dL (12.0-16.0); O2 Tension (PaO2) 465.7 mmHg (> 70.0); Potassium - ABG Lab 3.94 mmol/L (3.70-5.30); pH, Arterial 7.32 (7.35-7.45)
[2018-07-08 11:52] LABS: Puncture Site ALINE
[2018-07-08 11:55] LABS: O2 Tension (PaO2) 516.5 mmHg (> 70.0); Puncture Site ALINE
[2018-07-08 11:57] LABS: pH, Arterial 7.25 (7.35-7.45)
[2018-07-08 11:58] LABS: O2 Tension (PaO2) 511.8 mmHg (> 70.0); Puncture Site ALINE
[2018-07-08 11:59] LABS: pH (venous) 7.22 (7.32-7.43)
[2018-07-08 12:00] LABS: pH, Arterial 7.23 (7.35-7.45)
[2018-07-08 12:01] LABS: Puncture Site ALINE
[2018-07-08 12:01] LABS: Puncture Site ALINE
[2018-07-08 12:01] LABS: Puncture Site ALINE
[2018-07-08] MEDS ORDERED: hydrALAZINE 20 MG/ML VIAL SLOW IVP PRN (13:07)
[2018-07-08] MEDS ORDERED: Nitroglycerin 50 MG/250 ML BOT 250 ML IVPB PRN (13:07)
[2018-07-08] MEDS ORDERED: Bisacodyl 10 MG SUPP PR PRN (13:07)
[2018-07-08] MEDS ORDERED: D5 1/2 NS w/20 mEq KCL 1,000 ML IV SCH (13:07)
[2018-07-08] MEDS ORDERED: Potassium Chloride 20 MEQ/100 ML PREMIX BAG IVPB PRN (13:07)
[2018-07-08] MEDS ORDERED: Guaifenesin DM 100-10/5 ML UDCUP PO PRN (13:07)
[2018-07-08] MEDS ORDERED: Acetaminophen 325 MG TAB PO PRN (13:07)
[2018-07-08] MEDS ORDERED: Morphine 4 MG/ML VIAL SLOW IVP PRN (13:07)
[2018-07-08] MEDS ORDERED: Fentanyl 100 MCG/2 ML VIAL SLOW IVP PRN (13:07)
[2018-07-08] MEDS ORDERED: Mag-Al 1200 mg/1200 mg/30 ML UDCUP PO PRN (13:07)
[2018-07-08] MEDS ORDERED: Hetastarch 6% 500 ML 500 ML IVPB PRN (13:07)
[2018-07-08] MEDS ORDERED: Post-Op Insulin Drip Protocol IVPB ONE (13:07)
[2018-07-08] MEDS ORDERED: Ondansetron PF 4 MG/2 ML Vial IVP PRN (13:07)
[2018-07-08] MEDS ORDERED: Norepinephrine 8 MG/0.9% NS 250 ML IVPB PRN (13:07)
[2018-07-08] MEDS ORDERED: Promethazine HCl 25 MG/ML VIAL IM PRN (13:07)
[2018-07-08] MEDS ORDERED: Dextrose 50% Abboject 50 ML SYRINGE SLOW IVP PRN (13:15)
[2018-07-08] MEDS ORDERED: Insulin Regular 300 UNITS/3 ML VIAL SC PRN (13:15)
[2018-07-08] MEDS ORDERED: Magnesium 2 GM/50 ML 2 GM in Premix Bag 1 BAG IVPB SCH (13:15)
[2018-07-08] MEDS ORDERED: Dextrose 5% in Water 1,000 ML IV PRN (13:15)
[2018-07-08 13:16] LABS: Actual Bicarbonate (HCO3a) 22.5 mEq/L (22-28); Base Excess (BEa) -3.6 mEq/L (-2.0 to +3.0); CO2 Tension 45.7 mmHg (35.0-45.0); Calcium, Ionized 1.21 mmol/L (1.12-1.30); Carboxyhemoglobin (COHb) 1.4 gm% (0.0-3.0); Hemoglobin (Hb) 8.9 g/dL (12.0-16.0); Potassium - ABG Lab 4.22 mmol/L (3.70-5.30); pH, Arterial 7.31 (7.35-7.45)
[2018-07-08 13:17] LABS: Puncture Site ALINE
[2018-07-08 13:18] LABS: ALV-art Gradient 219.375 (0-20)
[2018-07-08 13:19] LABS: Hemoglobin 8.3 g/dL (12.0-16.0); Mean Corpuscular HGB CONC 32.2 g/dL (32.0-36.0); Mean Corpuscular Hemoglobin 25.9 pg (27.0-31.0); Mean Corpuscular Volume 80.5 fL (78.0-98.0); Mean Platelet Volume 7.8 fL (7.4-10.4); Platelet Count 194 thou/uL (130-400); RBC Distribution Width 14.7 % (11.5-14.5); Red Blood Cell (RBC) Count 3.21 mill/uL (4.20-5.40); White Blood Cell (WBC) Count 22.4 thou/uL (4.8-10.8)
[2018-07-08 13:23] LABS: PTT 32.9 SEC (22.9-36.1)
[2018-07-08 13:24] LABS: INR-International Normal Ratio 1.4; Prothrombin Time 17.2 SEC (12.0-14.7)
[2018-07-08] MEDS: CEFAZOLIN 2 GM/50 ML BAG IVPB SCH ×2 (13:30→21:15)
--- NOTE | 2018-07-08 13:31 | RAD ---
CHEST ONE VIEW: History: Post open heart surgery. Comparison: 04-15-18 FINDINGS: Heart size is enlarged. Mild pulmonary venous congestion. Small effusions. Endotracheal tube tip is present at the level of the clavicles. Multiple new midline sternotomy wires . Pericardial drains are present. IMPRESSION: Expected post-operative findings without complication. POS: HIGINIO
[2018-07-08 13:32] LABS: Anisocytosis SLIGHT = 6-15 cells (100X) (0-5/hpf); Band 15 % (5-11); Eosinophils 1 % (0-10); Lymphocytes 8 % (21-51); MDiff Complete? YES; Monocytes 3 % (0-10); Myelocyte 2 % (0-0); Neutrophil 71 % (42-75); Ovalocytes SLIGHT = 2-5 cells (100X) (0-1/hpf); PLT Morphology Comment Appears Adequate; Polychromasia SLIGHT = 2-3 cells (100X) (0-2/hpf)
[2018-07-08 13:37] LABS: Anion Gap 13 mmol/L (10-20); BUN (Urea Nitrogen) 14 mg/dL (9.8-20.1); Calc. Creatinine Clearance 83 mL/min (70-130); Calcium 8.6 mg/dL (7.8-10.44); Carbon Dioxide 21 mmol/L (23-31); Chloride 113 mmol/L (98-107); Estimated GFR-MDRD 65; Glucose 135 mg/dL (83-110); Potassium 4.3 mmol/L (3.5-5.1); Sodium 143 mmol/L (136-145)
[2018-07-08] MEDS: Fentanyl 100 MCG/2 ML VIAL SLOW IVP PRN ×2 (16:56→21:51)
[2018-07-08] MEDS: Ketorolac Tromethamine 30 MG/ML VIAL IVP SCH ×2 (18:01→23:35)
--- NOTE | 2018-07-08 18:30 | CON ---
DATE OF CONSULTATION: 07/08/2018 REASON FOR CONSULTATION: Assist with cardiac management. HISTORY OF PRESENT ILLNESS: Ms. Solis is a very pleasant 73-year-old woman, whom I have seen and evaluated in the past. She has a history of severe aortic stenosis. She underwent a successful aortic valve replacement by Dr. Phil Mariscal. She also had underlying 3-vessel coronary artery disease and underwent bypass surgery. She is now seen and evaluated in the ICU. From a CV standpoint, she is stable. She is currently not on pressor agents. She is extubated. She does have chest wall discomfort. PAST MEDICAL HISTORY: 1. Hypertension. 2. Aortic stenosis, status post AVR and bypass surgery. HOME MEDICATIONS: Include 1. Metoprolol. 2. Amlodipine. 3. Isosorbide. 4. Tirosint. 5. Celexa. ALLERGIES: NONE. REVIEW OF SYSTEMS: A 10-point review of systems is reviewed and as above, otherwise negative. PHYSICAL EXAMINATION: GENERAL: Patient is a pleasant female, who is in no acute distress. The patient appears their stated age. VITAL SIGNS: Blood pressure 106/44, pulse 68, temperature afebrile. NEUROLOGIC: The patient is alert and oriented x3 with no focal neurologic deficits. HEENT: Sclerae without icterus. Mouth has moist mucous membranes with normal pallor. NECK: No JVD. Carotid upstroke brisk. No bruits bilaterally. LUNGS: Clear to auscultation with unlabored respirations. BACK: No scoliosis or kyphosis. CARDIAC: Regular rate and rhythm without positive rub. ABDOMEN: Soft, nontender, nondistended. No peritoneal signs present. No hepatosplenomegaly. No abnormal striae. EXTREMITIES: 2+ femoral and 2+ dorsalis pedis pulses. No cyanosis, clubbing, or edema. SKIN: No gross abnormalities. PERTINENT LABORATORY: Hemoglobin 8.3, white blood cell count 22,000, and platelet count 194. Chloride 113, CO2 of 21, and creatinine 0.8. IMPRESSION: Coronary artery disease and severe aortic stenosis, status post aortic valve replacement and bypass surgery. RECOMMENDATIONS: Ms. Solis is currently not on pressor agents. We will continue to monitor her hemoglobin closely. She is at 8.3. We will transfuse if needed. I would recommend incentive spirometry in addition to low-dose beta-ole therapy and statin treatment. We will continue to follow with you. Job ID: [id number]
[2018-07-08] MEDS: Vancomycin HCl 1.5 GM in Sodium Chloride 0.9% 250 ML 300 ML IVPB SCH (19:08)
--- NOTE | 2018-07-08 19:27 | OP ---
DATE OF PROCEDURE: 07/08/2018 PREOPERATIVE DIAGNOSES: Aortic stenosis/coronary artery disease/hypertension/dyslipidemia. POSTOPERATIVE DIAGNOSES: Aortic stenosis/coronary artery disease/hypertension/dyslipidemia. PROCEDURES PERFORMED: 1. Aortic valve replacement with 21 Magna bioprosthetic valve. 2. Coronary artery bypass grafting x4 - left internal mammary artery 1.5 mm mid LAD. 3. Reverse saphenous vein to 1.5 mm D1. 4. Reverse saphenous vein to 1.5 mm ramus. 5. Reverse saphenous vein to 3.0 mm RCA. SURGEON: Dr. Phil Mariscal and Dr. Hank Brown. ANESTHESIA: General endotracheal - Dr. Mariusz Alvraado. PUMP TIME: 147 minutes. CROSS-CLAMP TIME: 106 minutes. LOW CORE TEMPERATURE: 33.7 degrees Celsius. ACCOUNTS CLERK: Watson Antonio. DRAINS: A 24-Swazi chest tubes x3. DRIPS: None. TRANSFUSIONS: None. DESCRIPTION OF PROCEDURE: After consent was obtained, the patient was brought to the operating room, placed in supine position on the operating table. Appropriate central line was placed, and general endotracheal anesthesia was induced. Chest, abdomen, and legs were prepped and draped in usual sterile fashion. Greater saphenous vein was harvested from the left lower extremity utilizing an endoscopic technique from groin down to the mid calf. Wound was irrigated and closed in layers. Median sternotomy was performed. Left internal mammary artery was harvested as a pedicle graft. The patient was systemically heparinized. Distal pedicle was divided and infused with papaverine. the pericardium was divided with electrocautery. Pericardial stay sutures were placed. The ascending aorta was very short. The heart was tight within the pericardium. Aortic and atrial cannulation was performed. The aorta was cannulated distal to the pericardial reflection with a tapered 20-Swazi aortic cannula. After adequate heparinization, retrograde prime was performed and the patient was placed on cardiopulmonary bypass. Distal targets were marked. Aortic cross-clamp was applied, and antegrade sanguineous cardioplegic arrest was obtained. 1 L of antegrade cold cardioplegia was given. Topical cold solution was used. Reverse saphenous vein was anastomosed to the RCA in end-to-side fashion with running 7-0 Prolene suture. Anastomosis was tested and was hemostatic. Later, two separate 7-0 stitches were placed for hemostasis at the toe. Reverse saphenous vein was anastomosed to the ramus in an end-to-side fashion with running 7-0 Prolene suture. Anastomosis was tested and was hemostatic. Reverse saphenous vein was anastomosed to D1 in an end-to-side fashion with running 7-0 Prolene sutures. Anastomosis was tested and was hemostatic. Mammary arteries anastomosed the LAD in end-to-side fashion with running 7-0 Prolene suture. Mammary artery clamp was released briefly and then re-clamped. Pedicle was secured with interrupted 6-0 Prolene suture. The patient was given 300 mL of cold [place] cardioplegia. Carbon dioxide was infused within the pericardial well for the remainder of the procedure. Transverse hockey stick aortotomy was performed. Aortic valve was inspected with three leaflet valve. The leaflets of the hinge points were heavily calcified. The leaflets were debrided, and the annulus was decalcified. Valve measured at 21. Pledgeted 2-0 Ethibond sutures were placed in the annulus. These were passed through the sewing ring of the Magna bioprosthetic valve, and the valve was seated nicely. Valve was secured with core knots. Aortotomy was closed with pledgeted 4-0 Prolene suture in 2 layers. Two separate punch sites were then made, and proximal anastomoses to the right coronary and the ramus anastomosed to the aortic root. Cross-clamp was then removed after adequate de-airing by JACQUE. This saphenous vein graft to the diagonal was anastomosed to the sidewall of the ramus graft. The anastomoses were inspected for hemostasis, which was good. The aortic suture line was inspected for hemostasis, which was good. The patient was warmed and weaned from cardiopulmonary bypass. After resumption of sinus rhythm, good hemodynamics, temperature greater than 36.5, bypass was discontinued. Transfusion was given. Protamine was administered. Decannulation was performed, a pursestring suture secured. The aortic cannulation site was secured with pledgeted 4-0 Prolene suture. After adequate hemostasis had been obtained, 24-Swazi chest tubes were placed into the pericardial well and one in the left pleural cavity. Ventricular pacing wires were placed, brought to skin and secured with silk suture. The sternum was treated with vancomycin paste. Again, the pericardium was inspected for hemostasis. Sternum was closed with #7 wire. Sternum was treated with platelet rich plasma, and wires were then twisted. Sternum was treated with platelet poor plasma and closed in multiple layers. Needle, sponge, and instrument counts were all reported as correct at the end of the procedure. Job ID: [id number]
[2018-07-08 19:30] LABS: Potassium 4.7 mmol/L (3.5-5.1)
[2018-07-08] MEDS: HYDROcodone/Acetaminophen 5/325 mg Tablet PO PRN (20:04)
[2018-07-08] MEDS ORDERED: Potassium Chloride 60 MEQ/30 ML VIAL ONE (20:45)
[2018-07-08] MEDS ORDERED: Sterile Water 10 ML VIAL ONE (20:45)
[2018-07-08] MEDS ORDERED: Papaverine 60 MG/2 ML VIAL ONE (20:45)
[2018-07-08] MEDS ORDERED: ePHEDrine/0.9% NaCl/PF SYRINGE 50 mg/10 ml ONE (20:45)
[2018-07-08] MEDS ORDERED: Mannitol 12.5 GM/50 ML ONE (20:45)
[2018-07-08] MEDS ORDERED: Sodium Bicarb 50 MEQ/50 ML VIAL ONE (20:45)
[2018-07-08] MEDS ORDERED: Dexamethasone 20 MG/5 ML VIAL ONE (20:45)
[2018-07-08] MEDS ORDERED: Albumin 25% 25 GM/100 ML BOT ONE (20:45)
[2018-07-08] MEDS ORDERED: Magnesium 5 GM/10 ML VIAL ONE (20:45)
[2018-07-08] MEDS ORDERED: Cardioplegic Soln 1,000 ML BAG ONE (20:45)
[2018-07-08] MEDS ORDERED: Heparin 5,000 UNITS/ML VIAL ONE (20:45)
[2018-07-08] MEDS ORDERED: Aminocaproic Acid 5 GM/20 ML VIAL ONE (20:45)
[2018-07-08] MEDS ORDERED: Thrombin 5000 UNITS/5 ML VIAL ONE (20:45)
[2018-07-08] MEDS ORDERED: Lidocaine 2% PF 100 mg/5 ml Syringe ONE (20:45)
[2018-07-08] MEDS ORDERED: Vecuronium 10 MG VIAL ONE (20:45)
[2018-07-08] MEDS ORDERED: Calcium Chloride 1 GM/10 ML Abboject SYRINGE ONE (20:45)
[2018-07-08] MEDS ORDERED: PROPOFOL 200 MG/20 ML VIAL ONE (20:45)
[2018-07-08] MEDS ORDERED: Protamine Sulfate 250 MG/25 ML VIAL ONE (20:45)
[2018-07-08] MEDS ORDERED: Heparin 30,000 units/30 ml VIAL ONE (20:45)
[2018-07-08] MEDS ORDERED: Famotidine/PF 20 mg/2ml Vial SLOW IVP SCH (21:00)
[2018-07-09] MEDS: HYDROcodone/Acetaminophen 5/325 mg Tablet PO PRN ×3 (04:27→21:55)
[2018-07-09 04:50] LABS: #Neutrophils 14.8 thou/uL (1.40-6.50); %Basophils 0.1 % (0.0-1.0); %Eosinophils 0.1 % (0.0-10.0); %Lymphocytes 5.7 % (21.0-51.0); %Monocytes 5.9 % (0.0-10.0); %Neutrophils 88.2 % (42.0-75.0); Hemoglobin 8.4 g/dL (12.0-16.0); Mean Corpuscular HGB CONC 31.8 g/dL (32.0-36.0); Mean Corpuscular Hemoglobin 25.9 pg (27.0-31.0); Mean Corpuscular Volume 81.5 fL (78.0-98.0); Mean Platelet Volume 8.2 fL (7.4-10.4); Platelet Count 183 thou/uL (130-400); RBC Distribution Width 14.8 % (11.5-14.5); Red Blood Cell (RBC) Count 3.25 mill/uL (4.20-5.40); White Blood Cell (WBC) Count 16.8 thou/uL (4.8-10.8)
[2018-07-09 05:11] LABS: Anion Gap 12 mmol/L (10-20); BUN (Urea Nitrogen) 19 mg/dL (9.8-20.1); Calc. Creatinine Clearance 72 mL/min (70-130); Calcium 8.4 mg/dL (7.8-10.44); Carbon Dioxide 22 mmol/L (23-31); Chloride 110 mmol/L (98-107); Estimated GFR-MDRD 54; Glucose 119 mg/dL (83-110); Potassium 4.7 mmol/L (3.5-5.1); Sodium 139 mmol/L (136-145)
[2018-07-09] MEDS: Ketorolac Tromethamine 30 MG/ML VIAL IVP SCH ×4 (05:33→23:57)
[2018-07-09] MEDS: CEFAZOLIN 2 GM/50 ML BAG IVPB SCH (05:33)
--- NOTE | 2018-07-09 06:46 | PDOC.CTH ---
Cardiology Progress Note - Subjective Doing well. Complaining of chest soreness - Objective Vital Signs Temp Pulse Resp Pulse Ox 07/09/18 06:20 96 07/09/18 06:18 60 17 96 07/09/18 04:00 97.9 F 07/09/18 00:27 63 18 94 L 07/08/18 23:00 98.5 F 07/08/18 20:00 97.8 F 95 Admit Weight 3.489 oz Weight 199 lb 15.983 oz 07/07/18 07/08/18 07/09/18 06:59 06:59 06:59 Intake Total 2096.5 Output Total 1615 Balance 481.5 - Physical Examination General/Neuro: alert & oriented x3, NAD Neck: carotid US brisk, no JVD present Lungs: CTA, unlabored respirations Heart: PMI normal, RRR Abdomen: NT/ND, soft Extremities: + femoral B - Labs Result Diagrams: 07/09/18 04:00 07/09/18 04:00 - Assessment/Plan Severe CAD s/p CABG Severe s/p AVR bradycardia Bradycardia likely related to recent AVR Hold BB Add statin IS and ambulation
[2018-07-09] MEDS ORDERED: Levothyroxine Sodium 75 MCG TAB PO SCH (07:15)
[2018-07-09] MEDS ORDERED: Budesonide 0.5 MG/2 ML NEB ONE (07:25)
[2018-07-09] MEDS: Vancomycin HCl 1.5 GM in Sodium Chloride 0.9% 250 ML 300 ML IVPB SCH (07:27)
[2018-07-09] MEDS: Aspirin 325 MG TAB PO SCH (08:59)
[2018-07-09] MEDS: Magnesium 2 GM/50 ML 2 GM in Premix Bag 1 BAG IVPB SCH (09:00)
--- NOTE | 2018-07-09 09:18 | RAD ---
CHEST ONE VIEW: HISTORY: Post open heart surgery. COMPARISON: Radiograph from the prior day. FINDINGS: The patient has been extubated. No enteric tube is appreciated. Mediastinal and thoracostomy tubes are similar. No pneumothorax. IMPRESSION: Interval extubation without complication. POS: DESTINEY
[2018-07-09] MEDS: Bisacodyl 5 MG TAB PO PRN (13:23)
[2018-07-09] MEDS ORDERED: Atorvastatin Calcium 40 MG TAB PO SCH (21:00)
[2018-07-10 05:21] LABS: #Basophils 0.1 thou/uL (0.0-0.2); #Lymphocytes 1.8 thou/uL (1.20-3.40); #Neutrophils 10.1 thou/uL (1.40-6.50); %Basophils 0.4 % (0.0-1.0); %Eosinophils 0.3 % (0.0-10.0); %Lymphocytes 13.5 % (21.0-51.0); %Monocytes 7.5 % (0.0-10.0); %Neutrophils 78.2 % (42.0-75.0); Hemoglobin 7.7 g/dL (12.0-16.0); Mean Corpuscular HGB CONC 32.3 g/dL (32.0-36.0); Mean Corpuscular Volume 80.4 fL (78.0-98.0); Mean Platelet Volume 8.4 fL (7.4-10.4); Platelet Count 158 thou/uL (130-400); RBC Distribution Width 14.9 % (11.5-14.5); Red Blood Cell (RBC) Count 2.96 mill/uL (4.20-5.40)
[2018-07-10 05:43] LABS: Anion Gap 11 mmol/L (10-20); BUN (Urea Nitrogen) 29 mg/dL (9.8-20.1); Calc. Creatinine Clearance 55 mL/min (70-130); Calcium 8.1 mg/dL (7.8-10.44); Carbon Dioxide 22 mmol/L (23-31); Chloride 103 mmol/L (98-107); Estimated GFR-MDRD 40; Glucose 130 mg/dL (83-110); Potassium 4.3 mmol/L (3.5-5.1); Sodium 132 mmol/L (136-145)
[2018-07-10] MEDS: Ketorolac Tromethamine 30 MG/ML VIAL IVP SCH ×4 (05:53→23:52)
[2018-07-10] MEDS: Levothyroxine Sodium 75 MCG TAB PO SCH (05:54)
[2018-07-10] MEDS: Aspirin 325 MG TAB PO SCH (08:05)
[2018-07-10] MEDS: Magnesium 2 GM/50 ML 2 GM in Premix Bag 1 BAG IVPB SCH (08:06)
--- NOTE | 2018-07-10 08:56 | PDOC.CTH ---
Cardiology Progress Note - Subjective No complaints. Seen sitting up in bed. - Objective Vital Signs Temp Pulse Resp Pulse Ox 07/10/18 08:31 95 07/10/18 08:27 61 16 95 07/10/18 07:41 95 07/10/18 07:00 98.5 F 07/10/18 00:00 99.0 F 07/09/18 23:47 96 Admit Weight 3.489 oz Weight 199 lb 15.983 oz 07/09/18 07/10/18 07/11/18 06:59 06:59 06:59 Intake Total 2096.5 1595 200 Output Total 1615 1260 100 Balance 481.5 335 100 - Physical Examination General/Neuro: alert & oriented x3, NAD Neck: carotid US brisk, no JVD present Lungs: CTA, unlabored respirations Heart: PMI normal, RRR Abdomen: NT/ND, soft Extremities: + femoral B - Labs Result Diagrams: 07/10/18 04:57 07/10/18 04:57 - Assessment/Plan Severe CAD s/p CABG Severe s/p AVR bradycardia Anemia CT still in place. Pt appears weak. Keep in ICU till CT removed Bed to chair and IS Hold BB secondary to bradycardia
--- NOTE | 2018-07-10 11:30 | RAD ---
CHEST 1 VIEW: HISTORY: Heart surgery. Followup. COMPARISON: 07/09/2018. FINDINGS: Cardiac silhouette is magnified and upper limits of normal in size. Pulmonary vasculature remains en gorged. Mediastinum is midline with postoperative changes. Left thoracostomy tube and other lines a nd tubes are unchanged in position. Bibasilar atelectasis is stable. No evidence of pneumothorax. IMPRESSION: Stable postoperative appearance of the chest. POS: [facility]
[2018-07-10] MEDS ORDERED: Furosemide 40 MG/4 ML VIAL ONE (12:08)
[2018-07-10] MEDS ORDERED: Furosemide 40 MG/4 ML VIAL SLOW IVP SCH (12:15)
[2018-07-10] MEDS: HYDROcodone/Acetaminophen 5/325 mg Tablet PO PRN (15:05)
[2018-07-10] MEDS: Carvedilol 3.125 MG TAB PO SCH (17:37)
[2018-07-11] MEDS: HYDROcodone/Acetaminophen 5/325 mg Tablet PO PRN ×2 (01:07→20:15)
[2018-07-11 04:39] LABS: #Basophils 0.1 thou/uL (0.0-0.2); #Eosinphils 0.4 thou/uL (0.0-0.7); #Lymphocytes 1.6 thou/uL (1.20-3.40); #Monocytes 0.9 thou/uL (0.11-0.59); #Neutrophils 6.5 thou/uL (1.40-6.50); %Basophils 0.6 % (0.0-1.0); %Eosinophils 4.3 % (0.0-10.0); %Lymphocytes 16.8 % (21.0-51.0); %Monocytes 9.3 % (0.0-10.0); %Neutrophils 69.1 % (42.0-75.0); Hemoglobin 7.4 g/dL (12.0-16.0); Mean Corpuscular HGB CONC 33.1 g/dL (32.0-36.0); Mean Corpuscular Hemoglobin 26.4 pg (27.0-31.0); Mean Corpuscular Volume 79.7 fL (78.0-98.0); Platelet Count 154 thou/uL (130-400); RBC Distribution Width 14.8 % (11.5-14.5); Red Blood Cell (RBC) Count 2.82 mill/uL (4.20-5.40); White Blood Cell (WBC) Count 9.4 thou/uL (4.8-10.8)
[2018-07-11 04:58] LABS: Anion Gap 12 mmol/L (10-20); BUN (Urea Nitrogen) 30 mg/dL (9.8-20.1); Calc. Creatinine Clearance 70 mL/min (70-130); Carbon Dioxide 23 mmol/L (23-31); Chloride 104 mmol/L (98-107); Estimated GFR-MDRD 53; Glucose 123 mg/dL (83-110); Potassium 4.1 mmol/L (3.5-5.1); Sodium 135 mmol/L (136-145)
[2018-07-11] MEDS: Levothyroxine Sodium 75 MCG TAB PO SCH (06:13)
[2018-07-11] MEDS: Ketorolac Tromethamine 30 MG/ML VIAL IVP SCH ×3 (06:13→17:29)
[2018-07-11] MEDS: Carvedilol 3.125 MG TAB PO SCH ×2 (08:04→17:23)
[2018-07-11] MEDS: Aspirin 325 MG TAB PO SCH (08:04)
--- NOTE | 2018-07-11 08:11 | PDOC.CTH ---
Cardiology Progress Note - Subjective Looks better today. No complaints - Objective Vital Signs Temp Pulse Ox 07/11/18 08:00 98 07/11/18 07:00 97.9 F 07/11/18 01:06 96 07/11/18 00:00 98.0 F Admit Weight 3.489 oz Weight 221 lb 9.033 oz 07/10/18 07/11/18 07/12/18 06:59 06:59 06:59 Intake Total 1595 1150 240 Output Total 1260 2945 200 Balance 335 -1795 40 - Physical Examination General/Neuro: alert & oriented x3, NAD Neck: no JVD present Lungs: CTA, unlabored respirations Heart: PMI normal, RRR Abdomen: NT/ND, soft Extremities: + femoral B - Telemetry Telemetry Rhythm: sr - Labs Result Diagrams: 07/11/18 04:36 07/11/18 04:36 - Assessment/Plan Severe CAD s/p CABG Severe s/p AVR bradycardia Anemia Transfusion today Hold BB secondary to low HR On asa statin IS and PT
--- NOTE | 2018-07-11 09:27 | RAD ---
PORTABLE AP CHEST XRAY: DATE: 07/11/2018. HISTORY: Post open heart surgery. COMPARISON: 07/10/2018. FINDINGS: Cardiac silhouette remains at the upper limits of normal in size. Postsurgical changes related to me tylor sternotomy are again present. Right subclavian central venous catheter, mediastinal drain, as w ell as right-sided thoracostomy tube are unchanged in position. There has been interval improvement in pulmonary vascular congestion. Atelectasis at each lung base is again present. There has been no significant interval change from the prior exam. IMPRESSION: Stable postoperative appearance of the chest. POS: [facility]
[2018-07-11] MEDS ORDERED: Furosemide 40 MG TAB PO SCH (11:30)
[2018-07-11] MEDS ORDERED: Metolazone 5 MG TAB PO SCH (11:30)
[2018-07-11] MEDS: Furosemide 40 MG TAB PO SCH (13:27)
[2018-07-11] MEDS: Bisacodyl 5 MG TAB PO PRN (17:24)
[2018-07-12] MEDS: HYDROcodone/Acetaminophen 5/325 mg Tablet PO PRN ×2 (04:55→21:52)
[2018-07-12 04:57] LABS: #Eosinphils 0.5 thou/uL (0.0-0.7); #Lymphocytes 1.2 thou/uL (1.20-3.40); #Monocytes 0.8 thou/uL (0.11-0.59); #Neutrophils 6.7 thou/uL (1.40-6.50); %Basophils 0.4 % (0.0-1.0); %Eosinophils 5.7 % (0.0-10.0); %Lymphocytes 12.6 % (21.0-51.0); %Monocytes 8.8 % (0.0-10.0); %Neutrophils 72.5 % (42.0-75.0); Hemoglobin 10.4 g/dL (12.0-16.0); Mean Corpuscular HGB CONC 33.4 g/dL (32.0-36.0); Mean Corpuscular Hemoglobin 27.2 pg (27.0-31.0); Mean Corpuscular Volume 81.5 fL (78.0-98.0); Mean Platelet Volume 8.3 fL (7.4-10.4); Platelet Count 193 thou/uL (130-400); RBC Distribution Width 15.1 % (11.5-14.5); White Blood Cell (WBC) Count 9.2 thou/uL (4.8-10.8)
[2018-07-12] MEDS: Levothyroxine Sodium 75 MCG TAB PO SCH (04:57)
[2018-07-12 05:17] LABS: Anion Gap 15 mmol/L (10-20); BUN (Urea Nitrogen) 29 mg/dL (9.8-20.1); Calc. Creatinine Clearance 87 mL/min (70-130); Calcium 8.9 mg/dL (7.8-10.44); Carbon Dioxide 26 mmol/L (23-31); Chloride 102 mmol/L (98-107); Estimated GFR-MDRD 61; Glucose 113 mg/dL (83-110); Potassium 3.8 mmol/L (3.5-5.1); Sodium 139 mmol/L (136-145)
[2018-07-12] MEDS ORDERED: Metolazone 5 MG TAB PO SCH (06:45)
[2018-07-12 07:14] VITALS: BMI 80.4
[2018-07-12] MEDS: Potassium Chloride 20 MEQ TAB PO SCH (07:14)
[2018-07-12] MEDS: Carvedilol 3.125 MG TAB PO SCH ×2 (07:14→17:19)
[2018-07-12] MEDS ORDERED: Bisacodyl 10 MG SUPP PR PRN (07:27)
[2018-07-12] MEDS ORDERED: diphenhydrAMINE 25 MG CAP PO PRN (07:27)
[2018-07-12] MEDS ORDERED: Mag-Al 1200 mg/1200 mg/30 ML UDCUP PO PRN (07:27)
[2018-07-12] MEDS ORDERED: Artificial Tears 18 DROP/0.9 ML EA EYE PRN (07:27)
[2018-07-12] MEDS ORDERED: Guaifenesin DM 100-10/5 ML UDCUP PO PRN (07:27)
[2018-07-12] MEDS ORDERED: Milk Of Magnesia 30 ML UDCUP PO PRN (07:27)
[2018-07-12] MEDS ORDERED: Nitroglycerin 0.4 MG TAB (25 Tab Bottle) SL PRN (07:27)
[2018-07-12] MEDS ORDERED: Mineral Oil ENEMA PR PRN (07:27)
[2018-07-12] MEDS ORDERED: Bisacodyl 5 MG TAB PO PRN (07:27)
[2018-07-12] MEDS: Furosemide 40 MG TAB PO SCH ×2 (08:00→14:07)
[2018-07-12] MEDS: Aspirin 325 mg Enteric Coated Tablet PO SCH (08:02)
--- NOTE | 2018-07-12 11:12 | PQF ---
DIONNA HOPE RICARDO MD [id number] CLINICAL DOCUMENTATION IMPROVEMENT CLARIFICATION FORM: ICD-10 Updated PLEASE DO AN ADDENDUM TO THE PROGRESS NOTE WITH ANY DOCUMENTATION UPDATES OR ADDITIONS AND CARRY THROUGH TO DC SUMMARY. THANK YOU. DATE: 07/12, 07/15/18 ATTN: DR. Frances MACHADO Please exercise your independent, professional judgment in responding to the clarification form. Clinical indicators are provided on the bottom of this form for your review. Please check appropriate box(s): [ ] Acute blood loss anemia [ ] Post-op anemia related to acute blood loss [ ] Other diagnosis [ ] Unable to determine For continuity of documentation, please document condition throughout progress notes and discharge summary. Thank You. CLINICAL INDICATORS - SIGNS / SYMPTOMS / LABS LABS: H/H (POST-OP, 07/08) 8.3/25.8 - 7.4/22.5 (07/11) CARDIOLOGY PN 07/10 & (CARTER): ANEMIA; TRANSFUSION TODAY (07/11) RISK FACTOR: S/P AVR & CABG X4 (07/08) TREATMENTS: TRANSFUSION 2U PRBC'S (07/11) THANK YOU! Sita (This form is maintained as a part of the permanent medical record) 2014 [employer]. All Rights Reserved Sita Aranda RN, BSN [email or web address] Office: [phone] [facility]
[2018-07-12] MEDS: Zolpidem Tartrate 5 MG TAB PO PRN (21:03)
[2018-07-13] MEDS: Levothyroxine Sodium 75 MCG TAB PO SCH (05:55)
[2018-07-13] MEDS ORDERED: Metolazone 5 MG TAB PO SCH (07:30)
[2018-07-13] MEDS: Furosemide 40 MG TAB PO SCH ×2 (08:41→14:42)
[2018-07-13] MEDS: Aspirin 325 mg Enteric Coated Tablet PO SCH (08:42)
[2018-07-13] MEDS: Carvedilol 6.25 MG TAB PO SCH ×2 (08:42→16:54)
[2018-07-13] MEDS: Potassium Chloride 20 MEQ TAB PO SCH (08:42)
[2018-07-13] MEDS: Amiodarone HCl 450 MG in Dextrose 5% in Water 250 ML IVPB SCH (15:00)
[2018-07-13 15:04] LABS: ALT (SGPT) 11 U/L (8-55); AST (SGOT) 16 U/L (5-34); Albumin 3.4 g/dL (3.4-4.8); Alkaline Phosphatase 57 U/L (40-150); Bilirubin, Direct 0.2 mg/dL (0.1-0.3); Bilirubin, Total 0.4 mg/dL (0.2-1.2); Magnesium 2.1 mg/dL (1.6-2.6); Protein, Total 6.2 g/dL (6.0-8.3)
--- NOTE | 2018-07-13 17:08 | PDOC.CTH ---
Cardiology Progress Note - Subjective She had several runs of afib rvr. - Objective Vital Signs Temp Pulse Pulse Pulse Resp BP BP 07/13/18 16:54 143/59 H 07/13/18 13:55 104 H 18 07/13/18 12:33 80 89 140/63 07/13/18 12:04 98.4 F 75 18 07/13/18 09:16 07/13/18 09:14 102 H 16 07/13/18 08:36 98.1 F 71 18 BP BP Pulse Ox Pulse Ox Pulse Ox 07/13/18 16:54 07/13/18 13:55 07/13/18 12:33 116/57 L 94 L 94 L 07/13/18 12:04 123/75 94 L 07/13/18 09:16 97 07/13/18 09:14 07/13/18 08:36 158/72 H 95 Admit Weight 3.489 oz Weight 203 lb 3.2 oz 07/12/18 07/13/18 07/14/18 06:59 06:59 06:59 Intake Total 1720 1140 Output Total 5245 3005 Balance -3525 -1865 - Physical Examination General/Neuro: alert & oriented x3, NAD Neck: no JVD present Lungs: CTA, unlabored respirations Heart: RRR Abdomen: NT/ND Extremities: + edema B (1+) - Telemetry Telemetry Rhythm: Afib --> NSR - Labs Result Diagrams: 07/12/18 04:53 07/12/18 04:53 - Assessment/Plan 1. Multivessel CAD. 2. Severe 3. S/P SVR 4. S/P CABG. 5. Post op afib. PLAN: - Watch HR closely as she was bradycardic at one point thought to be from BB. - Continue to increase PT as tolerated. - Aspirin and statin for life. - On coreg now. - Will add ACEI/ARB tomorrow if BP allows.
--- NOTE | 2018-07-13 17:36 | PRG ---
DATE OF SERVICE: 07/12/2018 SUBJECTIVE: Ms. Solis is doing well postoperatively day 4. She denies any chest pain other than her chest wall pain. Has some edema. Has had bowel movements. Has been walking around with PT. She has no other complaints. OBJECTIVE: VITAL SIGNS: Temperature 100.1, pulse 74, respiratory rate 18, saturating at 93% on room air, and blood pressure 152/71. GENERAL: Awake, alert, and oriented x3, in no distress. HEENT: Normocephalic. LUNGS: Clear. CARDIOVASCULAR: S1 and S2. Grade 2/3 systolic murmur in the upper sternal border. ABDOMEN: Soft. EXTREMITIES: 1+ edema. SKIN: Warm and dry. LABORATORY DATA: Laboratory work was reviewed. ASSESSMENT: 1. Multivessel coronary artery disease. 2. Severe aortic stenosis. 3. Status post AVR and CABG at the same time. 4. Bradycardia from beta blockers. PLAN: 1. May transfer to floor. 2. We will add low-dose beta ole and LUDY inhibitor once blood pressure and heart rate allow. 3. Aspirin and statin if you like. Job ID: [id number]
[2018-07-13] MEDS: HYDROcodone/Acetaminophen 5/325 mg Tablet PO PRN (18:35)
[2018-07-13] MEDS: Zolpidem Tartrate 5 MG TAB PO PRN (20:43)
[2018-07-14] MEDS: Amiodarone HCl 450 MG in Dextrose 5% in Water 250 ML IVPB SCH ×2 (00:14→15:39)
[2018-07-14] MEDS: Levothyroxine Sodium 75 MCG TAB PO SCH (05:23)
[2018-07-14 06:24] LABS: Anion Gap 13 mmol/L (10-20); BUN (Urea Nitrogen) 21 mg/dL (9.8-20.1); Calc. Creatinine Clearance 81 mL/min (70-130); Calcium 9.1 mg/dL (7.8-10.44); Carbon Dioxide 32 mmol/L (23-31); Chloride 93 mmol/L (98-107); Estimated GFR-MDRD 61; Glucose 107 mg/dL (83-110); Potassium 3.2 mmol/L (3.5-5.1); Sodium 135 mmol/L (136-145)
[2018-07-14] MEDS ORDERED: Potassium Chloride 20 MEQ in Premix Bag 1 BAG IVPB SCH ×2 (06:30→06:45)
[2018-07-14] MEDS: Aspirin 325 mg Enteric Coated Tablet PO SCH (07:55)
[2018-07-14] MEDS: Carvedilol 6.25 MG TAB PO SCH ×2 (07:55→17:38)
[2018-07-14] MEDS: Furosemide 40 MG TAB PO SCH ×2 (07:55→14:50)
[2018-07-14] MEDS: Potassium Chloride 20 MEQ TAB PO SCH ×2 (07:55→17:39)
--- NOTE | 2018-07-14 10:57 | PDOC.CTH ---
Cardiology Progress Note - Subjective No new complaints. c/o neuropathy to legs (chronic issue) and incisional pain. Remains in NSR 70s overnight on Amio gtt. - Objective Vital Signs Temp Pulse Resp BP BP Pulse Ox 07/14/18 08:00 96 07/14/18 07:55 141/63 H 07/14/18 07:50 97.8 F 70 18 141/63 H 96 07/14/18 06:17 75 16 95 07/14/18 04:00 98.3 F 69 18 127/59 L 96 07/14/18 00:49 68 18 95 Admit Weight 3.489 oz Weight 206 lb 11.2 oz 07/13/18 07/14/18 07/15/18 06:59 06:59 06:59 Intake Total 1140 1292 Output Total 3005 1450 Balance -1865 -158 - Physical Examination General/Neuro: alert & oriented x3 Neck: no JVD present Lungs: CTA Heart: RRR Abdomen: NT/ND Extremities: other: (trace bilateral QI) - Telemetry Telemetry Rhythm: SR - Labs Result Diagrams: 07/12/18 04:53 07/14/18 05:32 - Assessment/Plan 1. Multivessel CAD. 2. Severe 3. S/P SVR 4. S/P CABG. 5. Post op afib. 6. Bradycardia Will add po Amio at lower loading dose given history of baldomero. Hopefully d/c IV Amio tomorrow. Continue PT.
[2018-07-14] MEDS ORDERED: Amiodarone 200 MG TAB PO SCH (11:15)
[2018-07-14] MEDS: HYDROcodone/Acetaminophen 5/325 mg Tablet PO PRN (11:43)
[2018-07-14] MEDS: Amiodarone 200 MG TAB PO SCH ×2 (14:50→20:33)
[2018-07-14] MEDS: Zolpidem Tartrate 5 MG TAB PO PRN (20:36)
[2018-07-15] MEDS: HYDROcodone/Acetaminophen 5/325 mg Tablet PO PRN (00:57)
[2018-07-15] MEDS: Levothyroxine Sodium 75 MCG TAB PO SCH (05:49)
[2018-07-15 07:57] LABS: Actual Bicarbonate (HCO3a) 21.4 mEq/L (22-28); Analyzer IN Cardio OR; Base Excess (BEa) -3.7 mEq/L (-2.0 to +3.0); CO2 Tension 38.6 mmHg (35.0-45.0); Calcium, Ionized 1.22 mmol/L (1.12-1.30); Carboxyhemoglobin (COHb) 0.7 gm% (0.0-3.0); Hemoglobin (Hb) 6.9 g/dL (12.0-16.0); Potassium - ABG Lab 4.01 mmol/L (3.70-5.30); pH, Arterial 7.36 (7.35-7.45)
[2018-07-15 07:58] LABS: Actual Bicarbonate (HCO3a) 23.6 mEq/L (22-28); Analyzer IN Cardio OR; Base Excess (BEa) -1.6 mEq/L (-2.0 to +3.0); CO2 Tension 41.6 mmHg (35.0-45.0); Calcium, Ionized 1.32 mmol/L (1.12-1.30); Carboxyhemoglobin (COHb) 0.5 gm% (0.0-3.0); Hemoglobin (Hb) 7.6 g/dL (12.0-16.0); Potassium - ABG Lab 4.28 mmol/L (3.70-5.30); pH, Arterial 7.37 (7.35-7.45)
[2018-07-15 08:11] LABS: Puncture Site ALINE
[2018-07-15 08:11] LABS: Puncture Site ALINE
[2018-07-15] MEDS: Aspirin 325 mg Enteric Coated Tablet PO SCH (08:35)
[2018-07-15] MEDS: Furosemide 40 MG TAB PO SCH ×2 (08:35→15:29)
[2018-07-15] MEDS: Potassium Chloride 20 MEQ TAB PO SCH (08:35)
[2018-07-15] MEDS: Carvedilol 6.25 MG TAB PO SCH (08:35)
[2018-07-15] MEDS: Amiodarone 200 MG TAB PO SCH ×2 (08:35→15:28)
[2018-07-15 15:05] VITALS: BP 111/48; TEMP 98.7
--- NOTE | 2018-07-16 03:15 | DIS ---
DATE OF ADMISSION: 07/08/2018 DATE OF DISCHARGE: 07/15/2018 DIAGNOSIS: Aortic stenosis/coronary artery disease. PROCEDURES: 1. Aortic valve replacement with a #21 Magna bioprosthetic valve. 2. Coronary artery bypass grafting x4 - left internal mammary artery to LAD, reverse saphenous vein graft to D1, ramus, RCA. DESCRIPTION OF HOSPITAL STAY: Ms. Solis was admitted for elective procedure. She has done well postoperatively. She had a brief bout of SVT, which was controlled with amiodarone. Remainder of her hospital stay, she has been sent to recovery room from surgery. At the time of discharge, she is ambulatory, tolerating regular diet, having good bowel and bladder function. Incisions are clean and dry without evidence of infection. DISCHARGE MEDICATIONS: Include: 1. Norvasc 10 mg q.a.m. 2. Celexa 40 mg q.p.m. 3. Levothyroxine 75 mcg q.a.m. 4. Amiodarone 200 mg daily for two months. 5. Aspirin 325 mg daily. 6. Coreg 6.25 mg b.i.d. 7. Lasix 40 mg b.i.d. 8. Potassium 20 mEq daily. 9. [place] 5/325 one to two q.6 hours p.r.n. pain. Job ID: [id number]
== END 2018-07-15 15:44 | disposition swing bed (61) | DRG 220 ==
LOC: SURG A 07-08 05:54 → CCU 07-08 12:44 → 2NO 07-12 13:05
PROVIDERS: ADMIT Thoracic Surgery (Cardiothoracic Vascular Surgery); ATTEND Thoracic Surgery (Cardiothoracic Vascular Surgery)
PROC: 02RF08Z Replacement of Aortic Valve with Zooplastic Tissue, Open Approach (ICD-10-PCS; principal; 2018-07-08)
PROC: 02100Z9 Bypass Coronary Artery, One Artery from Left Internal Mammary, Open Approach (ICD-10-PCS; 2018-07-08)
PROC: 021209W Bypass Coronary Artery, Three Arteries from Aorta with Autologous Venous Tissue, Open Approach (ICD-10-PCS; 2018-07-08)
PROC: 06BQ4ZZ Excision of Left Saphenous Vein, Percutaneous Endoscopic Approach (ICD-10-PCS; 2018-07-08)
PROC: 5A1221Z Performance of Cardiac Output, Continuous (ICD-10-PCS; 2018-07-08)
PROC: 5A1223Z Performance of Cardiac Pacing, Continuous (ICD-10-PCS; 2018-07-08)
PROC: 30243N1 Transfusion of Nonautologous Red Blood Cells into Central Vein, Percutaneous Approach (ICD-10-PCS; 2018-07-13)
DX: I35.0 Nonrheumatic aortic (valve) stenosis (principal); D62 Acute posthemorrhagic anemia; I97.190 Other postprocedural cardiac functional disturbances following cardiac surgery; I25.10 Atherosclerotic heart disease of native coronary artery without angina pectoris; I10 Essential (primary) hypertension; E78.5 Hyperlipidemia, unspecified; I48.91 Unspecified atrial fibrillation; Z79.82 Long term (current) use of aspirin; I73.9 Peripheral vascular disease, unspecified; E03.9 Hypothyroidism, unspecified; Z79.890 Hormone replacement therapy
CPT/HCPCS: 36415; 36416; 36430; 71045; 80048; 80076; 82805; 82947; 83735; 84443; 85025; 85610; 85730; 86850; 86900; 86901; 88184; 88307; 88312; 88341; 88342; 93005; 93010; 93798; 94002; 94150; 94640; A4216; J0282; J0360; J0670; J1100; J1642; J1644; J1815; J1885; J1940; J2001; J2150; J2250; J2370; J2405; J2440; J2704; J2720; J3010; J3370; J3475; J3480; J7050; J7070; J7620; J7626; P9016; P9045; P9047; S0017; S0020; S0028

== ENCOUNTER 2018-07-21 03:10 | Observation (INO) | payer MEDICARE, MEDICAID ==
[2018-07-21] MEDS ORDERED: Nitroglycerin 0.4 MG TAB (25 Tab Bottle) PO PRN (04:29)
[2018-07-21] MEDS ORDERED: HYDROcodone/Acetaminophen 5/325 mg Tablet PO PRN (04:30)
[2018-07-21] MEDS ORDERED: Sodium Chloride 0.9% 1,000 ML IV SCH (04:30)
[2018-07-21 04:38] VITALS: BMI 37.0
[2018-07-21] MEDS ORDERED: Loratadine 10 MG TAB PO PRN (04:45)
[2018-07-21] MEDS ORDERED: Levothyroxine Sodium 75 MCG TAB PO SCH (06:00)
[2018-07-21] MEDS ORDERED: Nitroglycerin 2% Ointment 1 INCH/1 GM Packet TOP SCH (06:00)
[2018-07-21 06:49] LABS: Troponin I 0.063 ng/mL (< 0.028)
[2018-07-21] MEDS ORDERED: Zolpidem Tartrate 5 MG TAB PO PRN (07:31)
[2018-07-21] MEDS ORDERED: Acetaminophen 325 MG TAB PO PRN (07:31)
[2018-07-21] MEDS ORDERED: Ondansetron ODT 4 MG TAB PO PRN (07:31)
[2018-07-21] MEDS ORDERED: Potassium Chloride 20 MEQ TAB PO SCH (08:00)
[2018-07-21] MEDS ORDERED: Carvedilol 6.25 MG TAB PO SCH (08:00)
--- NOTE | 2018-07-21 08:22 | HP ---
PRIMARY CARE PROVIDER: Kourtney Rowe, BLAYNE, HOME MAKER-. HISTORY OF PRESENT ILLNESS: The patient referred to [facility] by [place] emergency room for chest pain. The patient underwent coronary artery bypass graft 07/08/2018, has been in Rehab in [place]. Last night, she had a pleuritic chest pain, anterior left chest. She says it lasted about 15 minutes, happened about 1 o'clock this morning. She states she is fine now. No associated symptoms of radiation, sweats, nausea, or shortness of breath. As mentioned before, she is status post coronary artery bypass graft and aortic valve prosthesis 07/08/2018. This was complicated with atrial fibrillation. She has a history of hypertension, elevated cholesterol, and hypothyroidism. MEDICATIONS: She was discharged on; 1. Norvasc 10 mg a day. 2. Celexa 40 mg a day. 3. Levothyroxine 75 mcg a day. 4. Amiodarone 200 mg a day. 5. Aspirin 325 a day. 6. Coreg 6.25 twice a day. 7. Lasix 40 mg twice a day. 8. Potassium chloride 20 mEq a day. 9. [place] 5/325 q.6 hours p.r.n. ALLERGIES: LISTED TO ALPRAZOLAM, CYMBALTA, GABAPENTIN, PAXIL, LYRICA, ZOLOFT, AND AMBIEN. PAST SURGICAL HISTORY: In addition to her bypass graft, she had a right total hip replacement in 2016 and left total hip replacement in 2017. FAMILY HISTORY: Positive for coronary artery disease in multiple siblings. SOCIAL HISTORY: . No tobacco. No alcohol. Full code status. Surrogate decision maker not named on this exam. REVIEW OF SYSTEMS: GENERAL: No fevers, sweats, chills, or dizziness. EYES: She has decreased vision due to macular degeneration. EAR, NOSE AND THROAT: No ear pain or drainage. No nasal bleeding. No trouble swallowing. CARDIAC: See present illness. No orthopnea or paroxysmal nocturnal dyspnea. No true pressure chest pain. RESPIRATION: No cough, wheezing, or asthma. GASTROINTESTINAL: No nausea, vomiting, diarrhea, or constipation. GENITOURINARY: No hematuria or dysuria. MUSCULOSKELETAL: She states she has been crippled since her last total hip replacement. States she has to use a cane to walk. She has chronic pain in her legs, which she relates to us neuropathy. NEUROLOGICAL: Neuropathy in her lower legs. No strokes or seizures. PSYCHIATRY: No current anxiety or depression issues. It is noted that she has been on multiple antidepressant medicines in the past including Zoloft, Paxil, and Cymbalta. SKIN: No bruising, bleeding, or rash. She does have a midline sternotomy scar. HEME/LYMPH: No tender or swollen lymph nodes in the axilla, inguinal, or cervical area. PHYSICAL EXAMINATION: VITAL SIGNS: Blood pressure 113/74, pulse 64, respirations 16, O2 saturation 100 on 2 L, temperature 97.9. GENERAL: Alert, oriented, pleasant, cooperative, in no distress. HEAD, EYES, EARS, NOSE, AND THROAT: Revealed pupils equal, round, reactive to light. Extraocular movements intact. Sclerae are white. Tympanic membranes clear. Nose is clear. Oral mucous membranes are wet. Dental hygiene is good. CHEST: Clear to auscultation and percussion. HEART: Had regular rate and rhythm with a 2 to 3/6 systolic murmur. ABDOMEN: Soft. Bowel sounds are normal. There is no hepatosplenomegaly. No masses or rebound. EXTREMITIES: Demonstrate no cyanosis, clubbing, or edema. PULSES: Carotid, radial, femoral and dorsalis pedis pulses intact and symmetric. SKIN: Warm and dry without bruises or rash except for the midline sternotomy scar, which is healing well. HEME/LYMPH: No tender or swollen lymph nodes in the axilla, inguinal, or cervical area. NEUROLOGICAL: Cranial nerves 2 through 12 are intact. Moves all extremities. Some hypoesthesia in the lower legs. DIAGNOSTIC DATA: EKG, regular sinus rhythm with diffuse T-wave abnormality, reviewed by me. LABORATORY DATA: Troponin 0.063. ADMITTING DIAGNOSES: 1. Pleuritic chest pain. 2. Two weeks post coronary artery bypass graft and bioprosthetic aortic valve replacement. 3. History of atrial fibrillation, on amiodarone. 4. Hypertension. 5. Dyslipidemia. 6. Hypothyroidism. 7. Peripheral neuropathy. PLAN: We will do serial troponins. CBC, comp metabolic profile, and TSH will be ordered. Chest x-ray will be ordered. Dr. Mariscal and Dr. Howard will be consulted. Selected home medicines will be continued. Job ID: [id number]
[2018-07-21] MEDS ORDERED: Enoxaparin Sodium 40 MG/0.4 ML SYRINGE SC SCH (09:00)
[2018-07-21] MEDS ORDERED: Aspirin 325 mg Enteric Coated Tablet PO SCH (09:00)
[2018-07-21] MEDS ORDERED: Aspirin 325 MG TAB PO SCH (09:00)
[2018-07-21] MEDS ORDERED: Amiodarone 200 MG TAB PO SCH ×2 (09:00)
[2018-07-21] MEDS: Carvedilol 6.25 MG TAB PO SCH ×2 (09:08→16:39)
[2018-07-21] MEDS: Aspirin 325 MG TAB PO SCH (09:10)
[2018-07-21] MEDS: HYDROcodone/Acetaminophen 5/325 mg Tablet PO PRN ×2 (09:29→23:24)
--- NOTE | 2018-07-21 10:23 | RAD ---
FRONTAL AND LATERAL IMAGING CHEST: Date: 07-21-18 Comparison: 07-11-18 History: Status post CABG. FINDINGS: Midline sternotomy wires are present. Mild pulmonary vascular prominence. Mechanical valve noted. No pneumothorax, large volume pleural effusion, focal consolidation, or alveolar edema. Mild elevation o f right hemidiaphragm. Lateral examination limited by shallow inspiration and rotation. IMPRESSION: No focal consolidation or alveolar edema. POS: [facility]
[2018-07-21 10:24] LABS: #Basophils 0.1 thou/uL (0.0-0.2); #Eosinphils 0.4 thou/uL (0.0-0.7); #Lymphocytes 1.1 thou/uL (1.20-3.40); #Monocytes 0.6 thou/uL (0.11-0.59); #Neutrophils 7.6 thou/uL (1.40-6.50); %Basophils 0.6 % (0.0-1.0); %Lymphocytes 10.8 % (21.0-51.0); %Monocytes 6.6 % (0.0-10.0); %Neutrophils 78.1 % (42.0-75.0); Hemoglobin 10.5 g/dL (12.0-16.0); Mean Corpuscular Hemoglobin 26.6 pg (27.0-31.0); Mean Corpuscular Volume 83.1 fL (78.0-98.0); Mean Platelet Volume 7.1 fL (7.4-10.4); Platelet Count 327 thou/uL (130-400); RBC Distribution Width 15.5 % (11.5-14.5); Red Blood Cell (RBC) Count 3.94 mill/uL (4.20-5.40); White Blood Cell (WBC) Count 9.7 thou/uL (4.8-10.8)
[2018-07-21 10:45] LABS: ALT (SGPT) 7 U/L (8-55); AST (SGOT) 12 U/L (5-34); Albumin 3.5 g/dL (3.4-4.8); Alkaline Phosphatase 78 U/L (40-150); Anion Gap 15 mmol/L (10-20); BUN (Urea Nitrogen) 20 mg/dL (9.8-20.1); Bilirubin, Total 0.3 mg/dL (0.2-1.2); Calc. Creatinine Clearance 73 mL/min (70-130); Calcium 8.7 mg/dL (7.8-10.44); Carbon Dioxide 24 mmol/L (23-31); Chloride 100 mmol/L (98-107); Estimated GFR-MDRD 54; Globulin 2.7 g/dL (2.4-3.5); Glucose 109 mg/dL (83-110); Potassium 3.8 mmol/L (3.5-5.1); Protein, Total 6.2 g/dL (6.0-8.3); Sodium 135 mmol/L (136-145)
[2018-07-21 10:49] LABS: Troponin I 0.056 ng/mL (< 0.028)
[2018-07-21 13:57] LABS: Troponin I 0.066 ng/mL (< 0.028)
--- NOTE | 2018-07-21 15:02 | CON ---
DATE OF CONSULTATION: 07/21/2018 REASON FOR CONSULTATION: Chest pain. PRIMARY CONCRETE PUMP OPERATOR HELPER: Jose Howard MD HISTORY OF PRESENT ILLNESS: Ms. Solis is a very pleasant 73-year-old white female, who comes to the hospital for chest pain. She was in the hospital for coronary artery disease and severe aortic stenosis. She had an aortic valve replacement as well as CABG performed on July [address] Mariscal. She did well postoperatively. She developed postop AFib and was started on amiodarone drip and transitioned over to a p.o. load. She was discharged home after that. She states that [facility] [place], and she has episodes of chest pain that are correlating to episode of tachycardia. She had an episode of chest pain, and an EKG was done and she had AFib, RVR at that time. When her pain got better, a repeat EKG showed sinus rhythm. Currently, she is pain free earlier this morning while on telemetry. She started having pain again and sure enough, it correlated with an episode of rapid AFib. She was on the commode, straining, and straining converted her back to sinus, so she stopped having the pain. Currently, pain free. PAST MEDICAL HISTORY: 1. Hypothyroidism. 2. Hypertension. 3. TIAs in the past. 4. Chronic pain on bilateral hips from bulging disk. 5. Chronic anxiety. 6. Mitral valve prolapse. 7. Peripheral neuropathy. 8. Coronary artery disease. 9. Severe aortic stenosis. PAST SURGICAL HISTORY: 1. Hysterectomy. 2. Tonsillectomy. 3. Bilateral hip replacements. 4. AVR for aortic stenosis and CABG. FAMILY HISTORY: Noncontributory. Two brothers with heart disease. One valve, one coronary artery disease. SOCIAL HISTORY: , two adult sons. No alcohol, tobacco, or drugs. Brother in room with her today. OUTPATIENT MEDICATIONS: 1. Norvasc 10 mg a day. 2. Celexa 40 mg a day. 3. Levothyroxine 75 mcg a day. 4. Amiodarone 200 mg a day. 5. Aspirin 325 a day. 6. Coreg 6.25 b.i.d. 7. Lasix 40 mg b.i.d. 8. Potassium chloride 20 mEq a day. 9. [place] p.r.n. pain. ALLERGIES: ALPRAZOLAM, CYMBALTA, GABAPENTIN, PAXIL, LYRICA, ZOLOFT, AND AMBIEN. PHYSICAL EXAMINATION: VITAL SIGNS: Temperature 98.0, pulse 61, respiratory rate 20, saturating 100% on 2 L, blood pressure 119/55. GENERAL: Awake, alert, and oriented x3, in no distress. HEENT: Normocephalic and atraumatic. NECK: Supple. LUNGS: Clear. CARDIOVASCULAR: S1, S2. No S3, S4. There is a grade 2/6 systolic murmur in right upper sternal border. ABDOMEN: Soft. Positive bowel sounds. EXTREMITIES: 1+ edema. SKIN: Warm and dry. LABORATORY DATA: Laboratory work was reviewed. CBC with a white count of 9, hemoglobin of 10.5, hematocrit of 32, platelet count of 327. Hemoglobin is stable from discharge. Chemistry with sodium of 135, otherwise unremarkable. Troponin was 0.06, 0.05, 0.06. Vitamin B12 was normal. Albumin was normal. DIAGNOSTIC DATA: EKG was reviewed, sinus rhythm when she is pain-free and rapid AFib when she is having chest pain with some ST changes. Chest x-ray was reviewed, unremarkable. ASSESSMENT: 1. Postoperative atrial fibrillation. 2. Chest pain that correlates with episodes of rapid atrial fibrillation. 3. Status post aortic valve replacement. 4. Status post coronary artery bypass grafting. 5. Anxiety. PLAN: 1. We will plan on getting an echocardiogram to make sure there is no pericardial effusion of significance. Most likely her symptoms are related to the palpitations that the AFib causes, and she is quite anxious and this may be causing her to feel pain. We will plan on increasing her amiodarone to 200 mg twice a day. I think given her history of TIAs and her ongoing episodes of AFib, now being about almost 2 weeks out of her surgery, I would recommend starting full anticoagulation for stroke prophylaxis. We will start Eliquis [address] Howard is primary malted milk masher, will follow up in the morning. Job ID: [id number]
[2018-07-21] MEDS: Amiodarone 200 MG TAB PO SCH (20:59)
[2018-07-21] MEDS: Apixaban 5 MG TAB PO SCH (20:59)
[2018-07-21] MEDS ORDERED: Citalopram 20 MG TAB PO SCH (21:00)
[2018-07-22 05:08] LABS: Anion Gap 15 mmol/L (10-20); BUN (Urea Nitrogen) 17 mg/dL (9.8-20.1); Calc. Creatinine Clearance 77 mL/min (70-130); Calcium 8.8 mg/dL (7.8-10.44); Carbon Dioxide 23 mmol/L (23-31); Chloride 102 mmol/L (98-107); Estimated GFR-MDRD 58; Glucose 104 mg/dL (83-110); Potassium 3.7 mmol/L (3.5-5.1); Sodium 136 mmol/L (136-145)
--- NOTE | 2018-07-22 08:00 | PDOC.PN ---
- Subjective Encounter Start Date: 07/22/18 Encounter Start Time: 07:57 Subjective: complains of back pain, upper, no change with position, etc - Objective Resuscitation Status - Order Detail: 07/21/18 07:27 Resuscitation Status Routine Resuscitation Status: FULL: Full Resuscitation MAR Reviewed: Yes Vital Signs & Weight: Vital Signs (12 hours) Temp Pulse Resp BP Pulse Ox 07/22/18 06:31 141/60 H 07/22/18 03:43 98.0 F 64 20 82/61 L 99 07/21/18 23:58 99.4 F 72 18 145/78 H 100 Weight Weight 202 lb 5 oz I&O: 07/21/18 07/22/18 07/23/18 06:59 06:59 06:59 Intake Total 100 1990 Output Total 250 750 Balance -150 1240 Result Diagrams: 07/21/18 10:15 07/22/18 04:16 Phys Exam - Physical Examination Neck: no JVD Respiratory: clear to auscultation bilateral Cardiovascular: RRR, no significant murmur Gastrointestinal: soft, non-tender, positive bowel sounds Musculoskeletal: no edema Dx/Plan (1) Pleuritic chest pain Code(s): R07.81 - PLEURODYNIA Status: Acute (2) CAD (coronary artery disease) Code(s): I25.10 - ATHSCL HEART DISEASE OF [place] CORONARY ARTERY W/O ANG PCTRS Status: Acute Qualifiers: Coronary Disease-Associated Artery/Lesion type: [place] artery [place] vs. transplanted heart: [place] heart Associated angina: without angina Qualified Code(s): I25.10 - Atherosclerotic heart disease of [place] coronary artery without angina pectoris (3) Status post aortic valve replacement Code(s): Z95.2 - PRESENCE OF PROSTHETIC HEART VALVE Status: Chronic (4) Hyperlipidemia Code(s): E78.5 - HYPERLIPIDEMIA, UNSPECIFIED Status: Chronic Qualifiers: Hyperlipidemia type: pure hypercholesterolemia Qualified Code(s): E78.00 - Pure hypercholesterolemia, unspecified; E78.0 - Pure hypercholesterolemia (5) Hypothyroidism Code(s): E03.9 - HYPOTHYROIDISM, UNSPECIFIED Status: Chronic Qualifiers: Hypothyroidism type: unspecified Qualified Code(s): E03.9 - Hypothyroidism , unspecified - Plan cont current tx, discuss with Dr Howard * .
[2018-07-22] MEDS: Carvedilol 6.25 MG TAB PO SCH (09:49)
[2018-07-22] MEDS: Aspirin 325 MG TAB PO SCH (09:50)
[2018-07-22] MEDS: Apixaban 5 MG TAB PO SCH (09:50)
[2018-07-22] MEDS: HYDROcodone/Acetaminophen 5/325 mg Tablet PO PRN ×2 (09:50→14:04)
[2018-07-22] MEDS: Amiodarone 200 MG TAB PO SCH (09:50)
--- NOTE | 2018-07-22 10:43 | DIS ---
DATE OF ADMISSION: 07/21/2018 DATE OF DISCHARGE: 07/22/2018 PRIMARY CARE PROVIDER: Kourtney Rowe DNP, [facility]- DISPOSITION: Discharged back to [facility]. FINAL DIAGNOSES: 1. Pleuritic chest pain. 2. Coronary artery disease, post coronary artery bypass graft 2 weeks ago. 3. Aortic valve replacement 2 weeks ago. 4. Hypertension. 5. Dyslipidemia. DISCHARGE MEDICATIONS: 1. Amiodarone 200 mg twice a day. 2. Eliquis 5 mg twice a day. 3. Aspirin 325 mg twice a day. 4. Coreg 6.25 mg p.o. b.i.d. 5. norco 7.5 one every 6 hours as needed for pain. 6. Lasix 40 mg p.o. b.i.d.. 7. Potassium chloride 20 mEq p.o. b.i.d. 8. Ambien 6.25 mg p.o. h.s. 9. Celexa 40 mg a day. ALLERGIES: XANAX, CYMBALTA, GABAPENTIN, PAXIL, LYRICA, ZOLOFT, AMBIEN. DIET: Heart healthy. PENDING AT TIME OF DISCHARGE: Nothing. CODE STATUS: Full. HOSPITAL COURSE: The patient is 2 weeks post coronary artery bypass graft, had an episode of 15 minutes of pleuritic chest pain, was referred to the [place] and eventually to [facility]. Her pain had resolved on admission. EKG was unrevealing for acute change. Hematology; white count 9.7, hemoglobin 10.5, platelet count 327,000. Comp metabolic profile unremarkable except for sodium 135. Her troponins 0.06, 0.06, 0.06+/-. She had no pressure or chest pain. Her chest x-ray; normal size heart. No CHF or infiltrate. Postop changes. She was seen by Dr. Hany Sorensen for Dr. Howard. Her echocardiogram; EF 60% to 65% with some diastolic dysfunction. I saw her this morning. She is doing well except for some chronic back pain. She was seen by Dr. Howard. We are in agreement that she is in no danger in return her to the [facility]. She has been advised of this. Her chest is clear. Heart is regular rate and rhythm. Vital signs are stable. PROCEDURES: None. DISCHARGE INSTRUCTIONS: She would be returned to [facility] with followup per her primary care provider once she is discharged from that facility. Job ID: [id number] [id number]
[2018-07-22 13:36] VITALS: BP 131/56; TEMP 98.3
== END 2018-07-22 16:15 | disposition swing bed (61) ==
LOC: IMCU/EMU 03:50
PROVIDERS: ADMIT Internal Medicine; ATTEND Internal Medicine
DX: R07.81 Pleurodynia (principal); I25.10 Atherosclerotic heart disease of native coronary artery without angina pectoris; E03.9 Hypothyroidism, unspecified; E78.00 Pure hypercholesterolemia, unspecified; I48.91 Unspecified atrial fibrillation; I10 Essential (primary) hypertension; G62.9 Polyneuropathy, unspecified; F41.9 Anxiety disorder, unspecified; I35.0 Nonrheumatic aortic (valve) stenosis; Z86.73 Personal history of transient ischemic attack (TIA), and cerebral infarction without residual deficits; Z79.82 Long term (current) use of aspirin; Z79.899 Other long term (current) drug therapy; Z88.8 Allergy status to other drugs, medicaments and biological substances; Z95.1 Presence of aortocoronary bypass graft; Z95.2 Presence of prosthetic heart valve
CPT/HCPCS: 71046; 80048; 80053; 82607; 84484; 85025; 93306; 94760; 96372; G0378; G0379; 36415; J1650

== ENCOUNTER 2018-09-07 15:44 | Observation (INO) | payer MEDICARE, MEDICAID ==
[2018-09-07] MEDS ORDERED: Docusate 100 MG CAP PO SCH (18:30)
[2018-09-07] MEDS ORDERED: Carvedilol 6.25 MG TAB PO SCH (21:00)
--- NOTE | 2018-09-07 21:13 | PDOC.FPRHP ---
- History of Present Illness Chief Complaint: Chest pain History of Present Illness: 73 yo F transfer from [place] presents with sharp left sided chest pain that started last night, lasted 10 minutes. Patient has a PMH of CABG 2 months ago with three grafts and a bioprosthetic aortic valve placement. She had the pain again today. Today the pain started while at rest, was again sharp and left sided, radiating to an "ache" in her sternum and to left neck. Denied n/v/ diaphoresis. Her pain lasted about minutes, she took nitrobid, but her pain resolved with nitro paste in the ED. She currently has no chest pain. This is the first time she has had this chest pain. She reports her blood pressures have been elevated to the 160s and 170s systolic at home, and that her telmisartan does not work to lower her blood pressure. Patient also has paroxysmal Afib and reports occasional palpitations. In the ED, EKG showed NSR with p wave inversions in V1 and V2, and T wave inversions III V1-V6, QTc prolonged (521). Troponin negative x2. Blood pressure 141/67. Chest pain resolved with nitropaste. BNP elevated to 109.2. She was given colace for constipation. - Allergies/Adverse Reactions Allergies Allergy/AdvReac Type Severity Reaction Status Date / Time alprazolam [From Xanax] Allergy Intermediate NIGHTMARES Verified 09/07/18 22:45 duloxetine HCl Allergy hallucinati Verified 09/07/18 22:45 [From Cymbalta] ons gabapentin Allergy makes my Verified 09/07/18 22:45 mind dysfunctional paroxetine [From Paxil] Allergy hallucinati Verified 09/07/18 22:45 on pregabalin [From Lyrica] Allergy hallucinati Verified 09/07/18 22:45 ons sertraline [From Zoloft] Allergy Diarrhea Verified 09/07/18 22:45 zolpidem [From Ambien] Allergy Verified 09/07/18 22:45 - Home Medications Medication Instructions Recorded Confirmed Type Levothyroxine Sodium 75 mcg PO QAM 02/12/16 09/07/18 History Carvedilol [Coreg] 6.25 mg PO BID-WM #60 tab 07/14/18 09/07/18 Rx Furosemide [Lasix] 40 mg PO 0900,1400 #60 tab 07/14/18 09/07/18 Rx Potassium Chloride [K-Dur] 20 meq PO BID-WM #60 tab 07/14/18 09/07/18 Rx Aspirin 325 mg PO DAILY tab 07/22/18 09/07/18 Rx Apixaban [Eliquis] 5 mg PO BID 30 Days #60 tab 08/03/18 09/07/18 Rx Nitroglycerin [Nitrostat] 0.4 mg SL Q5MIN PRN #30 tab 08/03/18 09/07/18 Rx Loratadine [Claritin] 10 mg PO DAILY PRN 09/07/18 09/07/18 History Polyethylene Glycol 3350 [Miralax] 17 gm PO DAILY PRN 09/07/18 09/07/18 History Sennosides [Senokot] 4 tab PO HS PRN 09/07/18 09/07/18 History Telmisartan [Micardis] 40 mg PO BID 09/07/18 09/07/18 History buPROPion HCl [buPROPion HCl SR] 150 mg PO DAILY 09/07/18 09/07/18 History - History PMHx: CABG (3 grafts) 2 mos ago, aortic stenosis s/p vioprosthetic valve replacement (07/08/18), hx blood loss anemia requiring transfusions, physical deconditioning, pleuritic CP, CAD, HTN paroxysmal afib, diastolic dysfunction, hypothyroidism, anxiety, depression, insomnia, macular degeneration PSHx: bilateral hip replacements FHx: denies DM or cancer Social: quit smoking 2007 (12 years, 6 PY history); no alcohol or drug use - Review of Systems General: denies: fever/chills, weight/appetite/sleep changes, night sweats, fatigue Eyes: reports: eye pain, vision changes (macular degeneration) ENT: reports: rhinorrhea. denies: nasal congestion Respiratory: reports: cough. denies: congestion, shortness of breath Cardiovascular: reports: chest pain, palpitation. denies: edema Gastrointestinal: reports: constipation. denies: nausea, vomiting, diarrhea, abdominal pain, GI bleeding Genitourinary: denies: dysuria, other (hematuria) Skin: denies: rashes, lesions Musculoskeletal: reports: pain (neuropathy legs bilat), tenderness Neurological: denies: numbness, syncope Psychological: reports: depression. denies: anxiety - Vital signs BP: [148/67] HR: [63] RR: [18] Tmax: [98.0] Pox: [96]% on [RA] Wt: [91.63 kg] - Physical Exam Constitutional: NAD, awake, alert and oriented HEENT: normocephalic and atraumatic, PERRLA, EOMI, MMM, oropharynx clear Neck: supple, no LAD Heart: RRR, normal S1/S2, pulses present, no edema, other (3/6 systolic murmur; reproducible pain to palpation left chest over breast) Lungs: CTAB, no respiratory distress, good air movement, no wheezing, no retractions Abdomen: soft, non-tender, bowel sounds present, no masses/distention Musculoskeletal: normal structure, normal tone, ROM grossly normal Neurological: no focal deficit, CN II-XII intact Skin: good turgor, capillary refill <2 seconds Heme/Lymphatic: no unusual bruising or bleeding, no purpura Psychiatric: normal mood and affect, good judgment and insight, intact recent and remote memory FMR H&P: Results - Labs Result Diagrams: 09/08/18 04:33 - EKG Interpretation EKG: see HPI - Radiology Interpretation Chest x-ray Status: image reviewed by me, report reviewed by me Additional comment: wnl FMR H&P: A/P - Problem List (1) Atypical chest pain Current Visit: Yes Status: Acute Code(s): R07.89 - OTHER CHEST PAIN (2) Physical deconditioning Current Visit: Yes Status: Chronic Code(s): R53.81 - OTHER MALAISE (3) Paroxysmal A-fib Current Visit: Yes Status: Chronic Code(s): I48.0 - PAROXYSMAL ATRIAL FIBRILLATION (4) Diastolic dysfunction Current Visit: Yes Status: Chronic Code(s): I51.89 - OTHER ILL-DEFINED HEART DISEASES (5) Depression Current Visit: Yes Status: Chronic Code(s): F32.9 - MAJOR DEPRESSIVE DISORDER, SINGLE EPISODE, UNSPECIFIED (6) Insomnia Current Visit: Yes Status: Chronic Code(s): G47.00 - INSOMNIA, UNSPECIFIED (7) Macular degeneration Current Visit: Yes Status: Chronic Code(s): H35.30 - UNSPECIFIED MACULAR DEGENERATION (8) CAD (coronary artery disease) Current Visit: No Status: Chronic Code(s): I25.10 - ATHSCL HEART DISEASE OF [place] CORONARY ARTERY W/O ANG PCTRS Qualifiers: Coronary Disease-Associated Artery/Lesion type: [place] artery [place] vs. transplanted heart: [place] heart Associated angina: without angina Qualified Code(s): I25.10 - Atherosclerotic heart disease of [place] coronary artery without angina pectoris (9) Status post total hip replacement, right Current Visit: No Status: Chronic Code(s): Z96.641 - PRESENCE OF RIGHT ARTIFICIAL HIP JOINT (10) Hyperlipidemia Current Visit: No Status: Chronic Code(s): E78.5 - HYPERLIPIDEMIA, UNSPECIFIED Qualifiers: Hyperlipidemia type: pure hypercholesterolemia Qualified Code(s): E78.00 - Pure hypercholesterolemia, unspecified; E78.0 - Pure hypercholesterolemia (11) Hypertension Current Visit: No Status: Chronic Code(s): I10 - ESSENTIAL (PRIMARY) HYPERTENSION Qualifiers: Hypertension type: essential hypertension Qualified Code(s): I10 - Essential (primary) hypertension Comment: Resume home Norvasc 5mg daily, Metoprolol 25mg BID (12) Hypothyroidism Current Visit: No Status: Chronic Code(s): E03.9 - HYPOTHYROIDISM, UNSPECIFIED Qualifiers: Hypothyroidism type: unspecified Qualified Code(s): E03.9 - Hypothyroidism , unspecified (13) Obesity (BMI 30.0-34.9) Current Visit: No Status: Chronic Code(s): E66.9 - OBESITY, UNSPECIFIED (14) Status post aortic valve replacement Current Visit: No Status: Chronic Code(s): Z95.2 - PRESENCE OF PROSTHETIC HEART VALVE - Plan Atypical chest pain Patient has hx of CABG with 3 bypass 2 months prior as well as aortic valve replacement, has been off eliquis for 3 days this week (restarted yesterday). CXR normal. EKG shows QTc prolongation and nonspecific T wave changes. Non- exertional, relieved with nitro. Favor costochondritis at this point, as pain is reproducible. However patient has multiple comorbidities and previous heart history. - Heart score of 6 - Trop neg x3 - NPO at midnight for possible stress - consult cardiology in AM. Patient sees Dr. Howard outpatient - Continue eliquis, aspirin, coreg, lasix - AM lipid panel Qtc Prolongation -Aware Hypokalemia -3.2, will monitor and replace as needed Chronic Constipation -Added miralax and sen/doc, continue colace Paroxysmal A fib - Aware, cotninue home medication Hx CABG, 3 bypass grafts Hx bioprosthetic aortic valve Physical deconditioning CAD - Resume home medication HTN - Resume home medication Diastolic dysfunction - Aware, BNP slightly elevated at 100 - Strict I/os, daily weights Hypothyroidism - Recheck TSH, continue home levothyroxine Depression -Continue wellbutrin Insomnia -pt reports hallucinations with multiple medications, included melatonin. Macular degeneration Code status: DNAR Diet: HH, NPO @ midnight Dvt ppx: lovenox GI ppx: ranitidine Admit: tele obs, LOS <2 midnights FMR H&P: Upper Level - Pertinent history 73 yo WF PMH CAD s/p 3 vessel CABG 2 months ago. Presents with left sided chest pain that started at approximately 1100 on day of admission and was relieved by SL nitro and nitro paste. Pain reproducable to palpation. Had bovine valve replacement at time and is on eliquis for anticoagulation but ran out 2 days ago. Was transferred from [place]. Sees Dr. Howard and Dr. Mariscal. ER: Labs, EKG, CXR. PM meds, Nitro paste. - Pertinent findings Vitals: BP 176/74. othewise WNL. GEN: NAD CV: RRR, 2/6 systolic murmur. pain with palpitation over left midclavicular line intercostal space 3-4. Pulm: CTA-B Extremities: No edema. Labs: Trop <0.010 x2, potassium 2.9. BNP 109 (baseline 200) EKG: lateral lead T-wave inversions. CXR: no acute processes. - Plan Date/Time: 09/07/182112 I, Franki Johnson MD, have evaluated this patient and agree with findings/plan as outlined by internet security specialist resident. Pertinent changes/additions are listed here. 1. Atypical chest pain r/o ACS: troponin negative x2. DDx includes MSK pain vs esophageal spasm vs. pleurtic CP. Will consider consulting cardiology in the morning. 2. HTN: adjust medications, Med rec. PRN available. 3. CAD s/p CABG: home medications 4. S/P aortic valve replacement: resume eliquis. 5. Diet: HH, CC 6. PPx: eliquis 7. CODE: DNAR Dispo: obs, tele <[address] Mendez. Addendum - Attending - Attending Attestation Date/Time: 09/08/18 1877 I personally evaluated the patient and discussed the management with Dr. June Jett on 09/07/2018 I agree with the History, Examination, Assessment and Plan documented above with any addition or exceptions noted below- 73 yo with h/o CAD s/p CABG 2017 with AVR, HTN paroxysmal afib, diastolic dysfunction, hypothyroidism, anxiety, depression, insomnia, macular degeneration presented c/o left sided chest pain. Denies any associated SOB, diaphoresis, N/V. Pain improved with NTG SL and resolved with NTG paste. PMH/PSH/Meds/All reviewed and agree with resident's documentation. Afebrile P65 BP 176/79 95% RA Exam repeated by me and agree with resident's findings. Labs: WBC=7.9, H/H=12.3/40.2, Uot=918, Na= 141, K=2.9, Zj=736, CO2=24, BUN/Cr=19.1.25, Kyco=978, trop I<0.010 x3. EKG- NSR , T wave inversions III, V1-V6. A/P: 1) Chest pain - negative enzymes; will discuss with cardiology in AM as patient had recent revascularization. 2) HTN- not well controlled; resume home meds and adjust as indicated. 3) Hypothyroidism - continue levothyroxine. .
[2018-09-07 22:28] VITALS: BMI 36.3
[2018-09-07] MEDS ORDERED: Acetaminophen 650 MG Suppository PR PRN (22:28)
[2018-09-07] MEDS ORDERED: Polyethylene Glycol 3350 17 GM Packet PO SCH (23:00)
[2018-09-07] MEDS: Acetaminophen 325 MG TAB PO PRN (23:06)
[2018-09-07 23:29] LABS: Anion Gap 12 mmol/L (10-20); BUN (Urea Nitrogen) 21 mg/dL (9.8-20.1); Calc. Creatinine Clearance 60 mL/min (70-130); Calcium 9.6 mg/dL (7.8-10.44); Carbon Dioxide 28 mmol/L (23-31); Chloride 105 mmol/L (98-107); Estimated GFR-MDRD 44; Glucose 87 mg/dL (83-110); Potassium 3.2 mmol/L (3.5-5.1); Sodium 142 mmol/L (136-145)
[2018-09-08] MEDS ORDERED: Potassium Chloride 20 MEQ TAB PO SCH ×2 (00:30→08:00)
[2018-09-08] MEDS ORDERED: Nitroglycerin 0.4 MG TAB (25 Tab Bottle) SL PRN (02:36)
[2018-09-08] MEDS ORDERED: Loratadine 10 MG TAB PO PRN (02:36)
--- NOTE | 2018-09-08 05:46 | PDOC.FM ---
- Subjective Subjective: Patient denies any chest pain this AM. Also denies any SOB, N/V/D, palpitations , or diaphoresis. Only complaint is constipation. Says she has not had a BM in the last 2 days. - Objective MAR Reviewed: Yes Vital Signs & Weight: Vital Signs (12 hours) Temp Pulse Resp BP Pulse Ox 09/07/18 22:25 97.8 F 65 21 H 176/79 H 95 Weight Weight 90.31 kg Result Diagrams: 09/08/18 04:33 Phys Exam - Physical Examination Constitutional: NAD HEENT: moist MMs Neck: supple, full ROM Respiratory: no wheezing, no rales, no rhonchi, clear to auscultation bilateral Cardiovascular: RRR, no significant murmur TTP on R & L chest borders, worse on the L Gastrointestinal: positive bowel sounds Musculoskeletal: no edema, pulses present Neurological: non-focal, moves all 4 limbs Psychiatric: normal affect, A&O x 3 Skin: no rash, normal turgor Dx/Plan (1) Status post coronary artery bypass graft Code(s): Z95.1 - PRESENCE OF AORTOCORONARY BYPASS GRAFT Status: Acute (2) Atypical chest pain Code(s): R07.89 - OTHER CHEST PAIN Status: Acute (3) Depression Code(s): F32.9 - MAJOR DEPRESSIVE DISORDER, SINGLE EPISODE, UNSPECIFIED Status : Chronic (4) Diastolic dysfunction Code(s): I51.89 - OTHER ILL-DEFINED HEART DISEASES Status: Chronic (5) Insomnia Code(s): G47.00 - INSOMNIA, UNSPECIFIED Status: Chronic (6) Macular degeneration Code(s): H35.30 - UNSPECIFIED MACULAR DEGENERATION Status: Chronic (7) Paroxysmal A-fib Code(s): I48.0 - PAROXYSMAL ATRIAL FIBRILLATION Status: Chronic (8) Obesity (BMI 30-39.9) Code(s): E66.9 - OBESITY, UNSPECIFIED Status: Acute (9) CAD (coronary artery disease) Code(s): I25.10 - ATHSCL HEART DISEASE OF [place] CORONARY ARTERY W/O ANG PCTRS Status: Chronic Qualifiers: Coronary Disease-Associated Artery/Lesion type: [place] artery [place] vs. transplanted heart: [place] heart Associated angina: without angina Qualified Code(s): I25.10 - Atherosclerotic heart disease of [place] coronary artery without angina pectoris (10) CKD (chronic kidney disease), stage III Status: Chronic (11) Hyperlipidemia Code(s): E78.5 - HYPERLIPIDEMIA, UNSPECIFIED Status: Chronic Qualifiers: Hyperlipidemia type: pure hypercholesterolemia Qualified Code(s): E78.00 - Pure hypercholesterolemia, unspecified; E78.0 - Pure hypercholesterolemia (12) Hypertension Code(s): I10 - ESSENTIAL (PRIMARY) HYPERTENSION Status: Chronic Qualifiers: Hypertension type: essential hypertension Qualified Code(s): I10 - Essential (primary) hypertension (13) Hypothyroidism Code(s): E03.9 - HYPOTHYROIDISM, UNSPECIFIED Status: Chronic Qualifiers: Hypothyroidism type: unspecified Qualified Code(s): E03.9 - Hypothyroidism , unspecified (14) Status post aortic valve replacement Code(s): Z95.2 - PRESENCE OF PROSTHETIC HEART VALVE Status: Chronic (15) Prolonged Q-T interval on ECG Code(s): R94.31 - ABNORMAL ELECTROCARDIOGRAM [ECG] [EKG] Status: Acute - Plan Plan: Atypical chest pain Patient has hx of 3V CABG & AV replacement 2 months prior. Has been off eliquis for 3 days this week (restarted yesterday). CXR normal. EKG shows QTc prolongation and nonspecific T wave changes. Presented w/ non-exertional CP relieved with nitro. Favor costochondritis at this point, as pain reproducibl on exam. However patient has multiple comorbidities and significant cardiac history. - Heart score of 6 - Trop neg x3 - NPO at midnight for possible stress this AM but will consult cards first given recent cardiac intervention. - Will continue eliquis, aspirin, & lasix. Will hold coreg for possible stress. - FLP & TSH pending. Qtc Prolongation - Aware, 521 on EKG on admission. Will avoid QT prolonging agents. Hypokalemia - 3.2 on admission. - Will monitor and replace as needed Chronic Constipation - Added miralax and sen/doc, continue colace Paroxysmal A fib - Aware, cotninue home medication Hx CABG, 3 bypass grafts - Aware. Hx bioprosthetic aortic valve - Aware. Physical deconditioning - Aware. Will consider PT consult if prolonged hospital stay. CAD - Resume home medications. HTN - Resume home medications. Diastolic dysfunction - Aware, BNP slightly elevated at 100 on admission. Does not appear to be in acute exacerbation. - Strict I/os & daily weights Hypothyroidism - Recheck TSH, continue home levothyroxine. Depression - Continue wellbutrin. Insomnia - Pt reports hallucinations with multiple medications, included melatonin. Macular degeneration - Aware. Code status: DNAR Diet: NPO, meds w/ sips Dvt ppx: lovenox GI ppx: ranitidine Admit: tele obs, LOS <2 midnights
[2018-09-08] MEDS: Acetaminophen 325 MG TAB PO PRN ×2 (05:57→08:24)
[2018-09-08 05:59] LABS: Anion Gap 14 mmol/L (10-20); BUN (Urea Nitrogen) 20 mg/dL (9.8-20.1); Calc. Creatinine Clearance 61 mL/min (70-130); Calcium 9.6 mg/dL (7.8-10.44); Carbon Dioxide 26 mmol/L (23-31); Chloride 106 mmol/L (98-107); Cholesterol 224 mg/dl (< 200 Desired); Estimated GFR-MDRD 45; Glucose 100 mg/dL (83-110); HDL Cholesterol 32 mg/dL (>60 Neg Risk); LDL Cholesterol, Calculated 151 mg/dL; Potassium 3.6 mmol/L (3.5-5.1); Sodium 142 mmol/L (136-145); Triglycerides 207 mg/dL (Less than 150)
[2018-09-08] MEDS ORDERED: Levothyroxine Sodium 75 MCG TAB PO SCH (06:00)
[2018-09-08] MEDS: Carvedilol 6.25 MG TAB PO SCH ×2 (08:20→12:11)
[2018-09-08] MEDS: Furosemide 40 MG TAB PO SCH ×2 (08:21→13:46)
[2018-09-08] MEDS: Apixaban 5 MG TAB PO SCH ×2 (08:22→11:16)
[2018-09-08] MEDS ORDERED: Senokot S 8.6-50 MG TAB PO SCH (09:00)
[2018-09-08] MEDS ORDERED: Famotidine 20 MG TAB PO SCH (09:00)
[2018-09-08] MEDS ORDERED: Aspirin 325 mg Enteric Coated Tablet PO SCH (09:00)
[2018-09-08] MEDS ORDERED: Aspirin 325 MG TAB PO SCH (09:00)
[2018-09-08] MEDS ORDERED: Bupropion 150 MG SR TAB PO SCH (09:00)
[2018-09-08] MEDS ORDERED: Senokot 8.6 MG TAB PO SCH (10:15)
[2018-09-08 12:12] VITALS: TEMP 98.3
[2018-09-08 12:47] VITALS: BP 163/78
--- NOTE | 2018-09-08 12:53 | PRG ---
DATE OF SERVICE: 09/08/2018 Ms. Solis is a pleasant 73-year-old lady, who is status post CABG 2 months ago. She was admitted with some atypical chest pain. So far, her troponins are negative. Her EKG did show some minor T segment changes, but no acute ST elevation or depression. We have asked Dr. Howard to see the patient as he attended her after her CABG. If he gives the okay, she will be discharged later today. Job ID: [id number]
--- NOTE | 2018-09-08 15:44 | CON ---
DATE OF CONSULTATION: HISTORY OF PRESENT ILLNESS: Ms. Solis was initially admitted for an episode of hypertension and chest pain. She states she was with a friend when she felt funny. She states her blood pressure is 170 systolic. She also had a light episode of chest pain. No other associated exacerbating factors present. The patient did undergo bypass surgery with aortic valve replacement recently. PHYSICAL EXAMINATION: VITAL SIGNS: Blood pressure 160/78, pulse 61, temperature 98.3. LUNGS: Clear to auscultation. HEART: Regular rate and rhythm. ABDOMEN: Soft, nontender, and nondistended. EXTREMITIES: No edema. LABORATORY DATA: EKG shows normal sinus rhythm with nonspecific ST-T wave changes. Troponin less than 0.01. IMPRESSION: 1. Chest pain. 2. Hypertension. 3. Coronary artery disease. 4. Status post bypass surgery. RECOMMENDATIONS: From a CV standpoint, the patient is stable. She has no recurrent episodes of pain. She would like to go home. Given normal troponin, negative EKG, and recent bypass, it would be okay from my standpoint to discharge home with close outpatient followup. Job ID: [id number]
--- NOTE | 2018-09-09 12:03 | DIS ---
DATE OF ADMISSION: 09/07/2018 DATE OF DISCHARGE: 09/08/2018 RESIDENT: Bea Escudero MD CONSULTS: Cardiology, Jose Howard MD PROCEDURES: None. PRIMARY DIAGNOSES: 1. Musculoskeletal chest pain status post coronary artery bypass graft surgery. 2. Prolonged QT interval. SECONDARY DIAGNOSES: 1. Coronary artery disease, status post coronary artery bypass graft. 2. Hypertension. 3. Hyperlipidemia. 4. Chronic kidney disease, stage 3. 5. Obesity. 6. Hypothyroidism. 7. Paroxysmal atrial fibrillation. 8. Depression. 9. Heart failure with preserved ejection fraction. 10. Macular degeneration. DISCHARGE MEDICATIONS: 1. Levothyroxine 75 mcg p.o. every morning. 2. Coreg 6.25 mg p.o. b.i.d. with meals. 3. Lasix 40 mg p.o. b.i.d. 4. Potassium chloride 20 mEq p.o. b.i.d. with meals. 5. Aspirin 325 mg daily. 6. Apixaban 5 mg p.o. b.i.d. 7. Nitrostat 0.4 mg sublingual every 5 minutes p.r.n. for chest pain. 8. Telmisartan 40 mg p.o. b.i.d. 9. Bupropion HCL 150 mg p.o. daily. 10. Sennosides four tabs p.o. at bedtime p.r.n. 11. Claritin 10 mg p.o. daily p.r.n. 12. MiraLAX 17 g p.o. daily p.r.n. 13. Acetaminophen 650 mg p.o. q.4 hours p.r.n. DISCONTINUED MEDICATIONS: None. HOSPITAL COURSE: The patient is a 73-year-old female with a past medical history significant for coronary artery disease with a recent three-vessel CABG approximately 2 months prior to presentation as well as a bioprosthetic aortic valve replacement who presented to the emergency department with a chief complaint of chest pain. The patient reported that the pain started on the date of presentation while at rest and described it as sharp, left-sided with radiation to the left neck. She reported that the pain was relieved with nitroglycerin paste that she received shortly after arriving to the emergency department. In the ED, routine lab work was obtained including an initial troponin I level which was less than 0.010. An EKG was also obtained, which showed normal sinus rhythm with P-wave inversions in V1 and V2 and T-wave inversions in leads III and V1 through V6 and a prolonged QT interval of 521 milliseconds. The patient's blood pressure was noted to be slightly above normal at 141/67, but all other vitals were within normal limits. Other than a troponin I level, the only abnormal lab work on admission was a low potassium of 3.2 and slightly elevated BUN and creatinine of 21 and 1.19 with an EGFR 44, which was within the patient's baseline given her chronic kidney disease stage 3. On exam, it was noted that the patient's chest pain was reproducible and her chest was noted to be tender to palpation. However, given her recent cardiac surgery and her known history of coronary artery disease and multiple comorbid conditions, the patient's HEART score was calculated to be a 6, so she was admitted for close monitoring on telemetry overnight. The following morning, the patient was kept n.p.o. in anticipation of a possible stress test with Cardiology. Dr. Howard, the patient's outpatient mixing machine tender, was consulted to come and evaluate the patient for further recommendations. Of note, the patient's troponins were trended x3, all of which were negative and her EKG remained unchanged for the duration of her hospital stay. Later that morning, Dr. Howard came and evaluated the patient and did not recommend any further interventions. He stated that due to the fact that the patient had no recurrent episodes of pain and her troponins were normal as well as her EKG, the patient was okay for discharge with close outpatient follow-up. The patient was therefore cleared for discharge home with close follow-up with Cardiology and her primary care physician. Of note, prior to discharge, the patient's a.m. potassium on the date of discharge was noted to be within normal limits at 3.6. She was therefore discharged home on her normal p.o. potassium regimen and instructed to follow up with her PCP. DISPOSITION: Stable. DISCHARGE INSTRUCTIONS: 1. Location: Home. 2. Diet: Heart healthy, low-sodium diet. 3. Activity: Activity as tolerated, no restrictions. 4. Followup: The patient was instructed to follow up with her primary care physician, Dr. Kourtney Rowe within 2 weeks of discharge and with Dr. Jose Howard as soon as available upon discharge. Job ID: [id number] MTDD
== END 2018-09-08 15:52 | disposition home or self-care (01) ==
LOC: ERS 15:44 → 2SW 22:22
PROVIDERS: ADMIT Family Medicine; ATTEND Family Medicine
DX: R07.89 Other chest pain (principal); I13.0 Hypertensive heart and chronic kidney disease with heart failure and stage 1 through stage 4 chronic kidney disease, or unspecified chronic kidney disease; N18.3 Chronic kidney disease, stage 3 (moderate); I50.30 Unspecified diastolic (congestive) heart failure; I25.10 Atherosclerotic heart disease of native coronary artery without angina pectoris; I48.0 Paroxysmal atrial fibrillation; I45.81 Long QT syndrome; E87.6 Hypokalemia; K59.09 Other constipation; E03.9 Hypothyroidism, unspecified; F32.9 Major depressive disorder, single episode, unspecified; H35.30 Unspecified macular degeneration; E78.5 Hyperlipidemia, unspecified; E78.00 Pure hypercholesterolemia, unspecified; E66.9 Obesity, unspecified; Z68.36 Body mass index [BMI] 36.0-36.9, adult; Z66 Do not resuscitate; Z79.01 Long term (current) use of anticoagulants; Z79.82 Long term (current) use of aspirin; Z79.899 Other long term (current) drug therapy; Z95.2 Presence of prosthetic heart valve
CPT/HCPCS: 80048 ×2; 80061; 84443; 84484 ×2; 93005; 94760; 99285; G0378 ×2; 36415

== ENCOUNTER 2018-10-23 20:21 | Observation (INO) | payer MEDICARE, MEDICAID ==
[2018-10-23 22:23] LABS: CKMB 2.5 ng/mL (0-6.6)
[2018-10-24] MEDS ORDERED: cloNIDine 0.1 MG TAB PO PRN (00:32)
[2018-10-24] MEDS ORDERED: Calcium Carbonate 500 MG ChewTAB PO PRN (00:33)
[2018-10-24] MEDS ORDERED: Ondansetron PF 4 MG/2 ML Vial IVP PRN (00:33)
[2018-10-24] MEDS ORDERED: Acetaminophen 325 MG TAB PO PRN (00:33)
[2018-10-24] MEDS ORDERED: Ondansetron ODT 4 MG TAB PO PRN (00:33)
[2018-10-24] MEDS ORDERED: Nitroglycerin 0.4 MG TAB (25 Tab Bottle) PO PRN (00:33)
[2018-10-24] MEDS ORDERED: Polyethylene Glycol 3350 17 GM Packet PO PRN (00:35)
[2018-10-24] MEDS ORDERED: Loratadine 10 MG TAB PO PRN (00:35)
[2018-10-24 01:11] LABS: Troponin I 0.072 ng/mL (< 0.028)
[2018-10-24 01:18] VITALS: BMI 37.2
--- NOTE | 2018-10-24 01:29 | HP ---
CHIEF COMPLAINT: Chest discomfort. HISTORY OF PRESENT ILLNESS: The patient is a 73-year-old female with coronary artery disease, status post CABG, coronary artery bypass grafting in June 29 , hypertension, paroxysmal atrial fibrillation on anticoagulation, presented to the emergency room at [facility] with chest discomfort. The chest discomfort started around 5:00 p.m. or so while she was at home. It was substernal, radiating to her left shoulder. The pain was getting worse with exertion. She also had some diaphoresis without any lightheadedness, dizziness, or syncope. She received a sublingual nitroglycerin by the EMS after which a pain improved. The patient currently has a event monitor scheduled from Dr. Howard's office last week. She is compliant with all of her medications. She denies any [id number] cough and cold medications. At [facility], she received one nitroglycerin patch along with Tylenol. She is chest pain free at this time. PAST MEDICAL HISTORY: 1. Coronary artery disease, status post bypass grafting in June 29. 2. Severe aortic stenosis, status post bioprosthetic valve at the time of CABG. 3. Hypertension. 4. Dyslipidemia. 5. Paroxysmal atrial fibrillation, on anticoagulation. 6. Chronic diastolic heart failure. 7. Hypothyroidism. 8. Anxiety and depression. 9. Chronic insomnia. 10. Macular degeneration. 11. CKD stage 3. PAST SURGICAL HISTORY: 1. Coronary artery bypass grafting with bioprosthetic valve replacement. 2. Bilateral hip surgery. 3. Tonsillectomy. 4. Hysterectomy. ALLERGIES: THE PATIENT IS ALLERGIC TO MULTIPLE MEDICATIONS INCLUDING AMBIEN, ZOLOFT, LYRICA, PAXIL, GABAPENTIN, CYMBALTA, AND XANAX. CURRENT HOME MEDICATIONS: 1. Carvedilol 6.25 mg b.i.d. 2. Bupropion 150 mg b.i.d. 3. Isosorbide dinitrate 20 mg b.i.d. 4. Levothyroxine 75 mcg daily. 5. Claritin as needed. 6. MiraLAX 17 g as needed. 7. Seroquel 25 mg nightly. 8. Senokot four tablets nightly. 9. Micardis 40 mg b.i.d. 10. Sublingual nitroglycerin as needed. 11. Tylenol as needed. 12. Eliquis 5 mg b.i.d. 13. Aspirin 325 mg daily. SOCIAL HISTORY: The patient currently lives at home with her family. She quit smoking in 2007. No current use of alcohol or drug use. She ambulates with the help of her cane. She is full code and makes her own decision with the help of her family. FAMILY HISTORY: Negative for premature coronary artery disease. REVIEW OF SYSTEMS: All other review of systems were reviewed and were found negative. PHYSICAL EXAMINATION: VITAL SIGNS: In the emergency room showed temperature 98 with a blood pressure of 182/70/190/74 with pulse rate of 60, respiration of 18, O2 saturation 90% to 97 % on room air. GENERAL: A 73-year-old female in no apparent distress. Denies any chest discomfort at this time. HEENT: Head, atraumatic and normocephalic. Sclerae anicteric. Moist mucous membrane. No oral lesion. NECK: Supple. No JVD appreciated. No carotid bruit. LUNGS: Clear to auscultation bilaterally. No wheezing, rales, or rhonchi. HEART: S1 and S2 present. Regular rate and rhythm. No heaves or pulsation. A 2/6 systolic murmur over the mitral area. Healed midline incision from CABG noted. ABDOMEN: Soft and nontender. Bowel sounds are present. No guarding or rigidity. EXTREMITIES: Trace edema in bilateral lower extremity. SKIN: Warm and dry. LYMPH NODES: No palpable lymph nodes in the neck. PERIPHERAL VASCULAR: Radial pulses palpable bilaterally. MUSCULOSKELETAL: No joint swelling or tenderness. LABORATORY FINDINGS: Troponin initially was negative. Repeat troponin 0.044 with CK-MB 2.5. BNP 166, BUN 20, and creatinine 1.04. WBC 6.8 with hemoglobin 11.6, hematocrit 36.9, and platelet count of 235. Chest x-ray by my review was negative for infiltrate. EKG by my review showed sinus bradycardia. IMPRESSION: 1. Chest discomfort, probably secondary to hypertensive urgency. 2. Coronary artery disease, status post coronary artery bypass graft in 06/29. 3. Severe aortic stenosis status post bioprosthetic valve replacement at the time of CABG. 4. Hyperlipidemia. 5. Chronic kidney disease, stage 3. 6. Paroxysmal atrial fibrillation with anticoagulation. Please note, the patient has a event monitor. 7. Anxiety, depression, mild, stable. 8. Chronic diastolic heart failure. 9. History of macular degeneration. PLAN: The patient will be monitored as 23-hour observation. We will get serial troponins. We will add low-dose of diuretics. All of her home medications will be resumed. We will discontinue nitroglycerin patch in a.m. Will resume her home dose of isosorbide dinitrate. Continue carvedilol along with anticoagulation. If her blood pressure remains uncontrolled, she may benefit from a cardiology consultation. Plan of care was discussed with the patient in detail. She stated understanding. DIET: Heart healthy. Patient was seen and examined on 10/23/18. Job ID: [id number] MTDD
[2018-10-24] MEDS: Acetaminophen 325 MG TAB PO PRN ×3 (01:34→14:19)
[2018-10-24 04:56] LABS: Anion Gap 14 mmol/L (10-20); BUN (Urea Nitrogen) 21 mg/dL (9.8-20.1); Calc. Creatinine Clearance 77 mL/min (70-130); Calcium 8.9 mg/dL (7.8-10.44); Carbon Dioxide 18 mmol/L (23-31); Chloride 111 mmol/L (98-107); Estimated GFR-MDRD 58; Glucose 88 mg/dL (83-110); Magnesium 2.3 mg/dL (1.6-2.6); Sodium 139 mmol/L (136-145)
[2018-10-24] MEDS ORDERED: Levothyroxine Sodium 75 MCG TAB PO SCH (06:00)
[2018-10-24] MEDS ORDERED: Furosemide 40 MG TAB PO SCH (07:30)
[2018-10-24] MEDS ORDERED: Aspirin 325 MG TAB PO SCH (08:00)
[2018-10-24] MEDS ORDERED: Apixaban 5 MG TAB PO SCH (09:00)
[2018-10-24] MEDS ORDERED: Senokot S 8.6-50 MG TAB PO SCH (09:00)
[2018-10-24] MEDS ORDERED: Isosorbide Dinitrate 20 MG TAB PO SCH (09:00)
[2018-10-24] MEDS ORDERED: Bupropion 150 MG SR TAB PO SCH (09:00)
[2018-10-24] MEDS: Carvedilol 6.25 MG TAB PO SCH ×2 (09:15→17:17)
[2018-10-24] MEDS ORDERED: hydrALAZINE 25 MG TAB PO PRN ×2 (10:26→16:14)
--- NOTE | 2018-10-24 10:28 | PDOC.PN ---
- Subjective Encounter Start Date: 10/24/18 Encounter Start Time: 10:27 Ms. Solis was seen today in follow-up of elevated blood pressure. She says the pain in her shoulder has resolved. She says her main concern is her blood pressure. - Objective Resuscitation Status - Order Detail: 10/24/18 00:33 Resuscitation Status Routine Resuscitation Status: FULL: Full Resuscitation MAR Reviewed: Yes Vital Signs & Weight: Vital Signs (12 hours) Temp Pulse Resp BP Pulse Ox 10/24/18 07:50 98.0 F 53 L 16 181/74 H 97 10/24/18 05:07 97.7 F 57 L 16 159/72 H 97 10/24/18 01:12 97.8 F 58 L 20 152/67 H 95 10/24/18 00:33 95 Weight Weight 203 lb 11.2 oz I&O: 10/23/18 10/24/18 10/25/18 06:59 06:59 06:59 Intake Total 120 Balance 120 Result Diagrams: 10/24/18 04:17 Phys Exam - Physical Examination HEENT: PERRLA Respiratory: no wheezing, no rales, no rhonchi, clear to auscultation bilateral Cardiovascular: RRR, no significant murmur, no rub Gastrointestinal: soft, non-tender, no distention, positive bowel sounds Musculoskeletal: pulses present, edema present trace pedal edema Dx/Plan (1) Hypertensive urgency Code(s): I16.0 - HYPERTENSIVE URGENCY Status: Acute (2) CAD (coronary artery disease) Code(s): I25.10 - ATHSCL HEART DISEASE OF [place] CORONARY ARTERY W/O ANG PCTRS Status: Chronic Qualifiers: (3) CKD (chronic kidney disease), stage III Status: Chronic (4) Hypertension Code(s): I10 - ESSENTIAL (PRIMARY) HYPERTENSION Status: Chronic Qualifiers: Comment: Resume home Norvasc 5mg daily, Metoprolol 25mg BID (5) Paroxysmal A-fib Code(s): I48.0 - PAROXYSMAL ATRIAL FIBRILLATION Status: Chronic - Plan * Hypertensive Urgency- patient notes that since she was changed from Metoprolol to Carvediolol, her blood pressure has been higher than usual * Will continue her current medications and give a trail of Hydralazine as needed ( will discontinue Clonidine due to her slower heart rate) * CAD- stable * CKD - stable. * Hopefully home later today and close follow-up with Dr. Howard
[2018-10-24 15:48] VITALS: TEMP 97.6
[2018-10-24 17:52] VITALS: BP 154/64
--- NOTE | 2018-10-25 02:43 | DIS ---
DATE OF ADMISSION: 10/23/2018 DATE OF DISCHARGE: 10/24/2018 PRIMARY CARE PHYSICIAN: Dr. Kourtney Rowe. DISCHARGE DISPOSITION: Home. PRIMARY DISCHARGE DIAGNOSES: 1. Hypertensive urgency. 2. Coronary artery disease. 3. Aortic stenosis, status post bioprosthetic valve. 4. Dyslipidemia. 5. Chronic diastolic heart failure. 6. Hypothyroidism. 7. Anxiety and depression. 8. Chronic insomnia. 9. Macular degeneration. 10. Chronic kidney disease, stage 3. DISCHARGE MEDICATIONS: Include, 1. Hydralazine 25 mg p.o. three times a day only as needed for systolic blood pressure greater than 160. 2. Nitrostat 0.4 mg sublingual. 3. Aspirin 325 mg daily. 4. Eliquis 5 mg twice a day. 5. Tylenol 650 mg q.4 as needed. 6. Micardis 40 mg twice daily. 7. Senokot at bedtime. 8. Seroquel 25 mg at bedtime. 9. MiraLAX 17 g daily. 10. Loratadine 10 mg daily. 11. Levothyroxine 75 mcg p.o. daily. 12. Isosorbide 20 mg twice a day. 13. Carvedilol 6.25 mg twice daily. 14. Bupropion 150 mg twice a day. CODE STATUS: Full code. ALLERGIES: 1. DULOXETINE. 2. ALPRAZOLAM. 3. PAXIL. 4. AMBIEN. 5. GABAPENTIN. 6. ZOLOFT. 7. LYRICA. HOSPITAL COURSE: Ms. Solis is a pleasant 73-year-old female, who presents to the emergency room with chest discomfort. She actually said it was more in her left shoulder and arm, which has actually resolved since admission, but she says her really main concern was that her blood pressure was elevated and that she has noted that her blood pressure has been elevated for the last couple of weeks. She attributes it to the recent change in her medications from metoprolol to carvedilol. She says that her blood pressure had gotten as high as 201/100 diastolic, and this is the reason that she came in for evaluation. She was started on hydralazine as needed, which she tolerated very well and says it actually made her feel better and her symptoms improved with this. We will, therefore, be discharging her home on hydralazine as needed and continue her previous medications as ordered and she should follow up with Dr. Howard as soon as possible to discuss the elevated blood pressure and to see what his recommendations are going forward. Job ID: [id number]
== END 2018-10-24 18:38 | disposition home or self-care (01) ==
LOC: ERS 20:21 → 2SW 23:29
PROVIDERS: ADMIT Internal Medicine; ATTEND Internal Medicine
DX: I16.0 Hypertensive urgency (principal); R07.89 Other chest pain; I48.0 Paroxysmal atrial fibrillation; E78.5 Hyperlipidemia, unspecified; I13.0 Hypertensive heart and chronic kidney disease with heart failure and stage 1 through stage 4 chronic kidney disease, or unspecified chronic kidney disease; N18.3 Chronic kidney disease, stage 3 (moderate); I50.32 Chronic diastolic (congestive) heart failure; F41.8 Other specified anxiety disorders; E03.9 Hypothyroidism, unspecified; G47.00 Insomnia, unspecified; I25.10 Atherosclerotic heart disease of native coronary artery without angina pectoris; Z95.1 Presence of aortocoronary bypass graft; Z95.2 Presence of prosthetic heart valve; Z88.8 Allergy status to other drugs, medicaments and biological substances; Z79.01 Long term (current) use of anticoagulants; Z79.82 Long term (current) use of aspirin; Z79.899 Other long term (current) drug therapy; Z87.891 Personal history of nicotine dependence
CPT/HCPCS: 80048; 82553; 83735; 84100; 84484 ×3; 93005; 94760; 97139; 99284; G0378 ×2; 36415

== ENCOUNTER 2020-12-25 20:39 | Inpatient (IN) | payer MEDICARE, MEDICAID ==
[~2020-12-25 20:39] MED LIST changes: -ISOVUE-370 76%-LOCM 1 ML ONE; +Iopamidol-370 76% 500 ML 1 ML ONE
[2020-12-25 21:47] LABS: #Neutrophils 17.7 thou/uL (1.40-6.50); %Basophils 0.2 % (0.0-1.0); %Eosinophils 0.1 % (0.0-10.0); %Lymphocytes 5.2 % (21.0-51.0); %Monocytes 5.1 % (0.0-10.0); %Neutrophils 89.5 % (42.0-75.0); Hemoglobin 15.5 g/dL (12.0-16.0); Mean Corpuscular HGB CONC 31.8 g/dL (32.0-36.0); Mean Corpuscular Hemoglobin 25.8 pg (27.0-31.0); Mean Corpuscular Volume 80.9 fL (78.0-98.0); Mean Platelet Volume 7.4 fL (7.4-10.4); Platelet Count 302 thou/uL (130-400); Red Blood Cell (RBC) Count 6.03 mill/uL (4.20-5.40); White Blood Cell (WBC) Count 19.8 thou/uL (4.8-10.8)
[2020-12-25 22:06] LABS: ALT (SGPT) 21 U/L (8-55); AST (SGOT) 36 U/L (5-34); Albumin 4.1 g/dL (3.4-4.8); Alkaline Phosphatase 83 U/L (40-110); Anion Gap 21 mmol/L (10-20); BUN (Urea Nitrogen) 16 mg/dL (9.8-20.1); Bilirubin, Total 0.6 mg/dL (0.2-1.2); CK (CPK) 1553 U/L (29-168); Calc. Creatinine Clearance 0 mL/min (70-130); Calcium 9.4 mg/dL (7.8-10.44); Carbon Dioxide 17 mmol/L (23-31); Chloride 106 mmol/L (98-107); Globulin 3.8 g/dL (2.4-3.5); Glucose 130 mg/dL (83-110); Lipase 17 U/L (8-78); Potassium 3.4 mmol/L (3.5-5.1); Protein, Total 7.9 g/dL (5.8-8.1); Sodium 141 mmol/L (136-145)
[2020-12-25] MEDS ORDERED: cefTRIAXone\\ROCEPHIN 2 GM VIAL ONE (22:30)
[2020-12-25] MEDS ORDERED: Vancomycin 1 GM/200 ML BAG ONE (22:31)
[2020-12-25] MEDS ORDERED: Aspirin 300 MG Suppository ONE (22:32)
[2020-12-25 22:58] LABS: INR-International Normal Ratio 1.1; Prothrombin Time 13.7 sec (12.0-14.7)
[2020-12-25 22:59] LABS: PTT 27.6 sec (22.9-36.1)
[2020-12-25] MEDS ORDERED: Labetalol HCl 100 MG/20 ML VIAL ONE (23:08)
[2020-12-25 23:28] LABS: CKMB 31.4 ng/mL (0-6.6)
[2020-12-26 00:17] LABS: Bacteria/HPF None Seen HPF (None Seen); Bilirubin Negative (Negative); Blood, Urine 2+ (Negative); Clarity Turbid (Clear); Glucose, Urine (Dipstick) Normal (Negative); Ketone, Urine Negative (Negative); Leukocyte 500 Leu/uL (Negative); Nitrite Negative (Negative); Protein, Urine (Dipstick) 200 mg/dL (Neg-Trace); Specific Gravity, Urine 1.026 (1.002-1.036); Urobilinogen Normal mg/dL (Less than 2); WBC/HPF Greater than 50 HPF (0-3)
[2020-12-26 02:37] LABS: Actual Bicarbonate (HCO3a) 21.1 mEq/L (22-28); Analyzer IN Cardio ER; Base Excess (BEa) -1.6 mEq/L (-2.0 to +3.0); CO2 Tension 30.4 mmHg (35.0-45.0); Calcium, Ionized (arterial) 1.14 mmol/L (1.12-1.30); Carboxyhemoglobin (COHb) 0.5 gm% (0.0-3.0); Hemoglobin (Hb) 14.6 g/dL (12.0-16.0); O2 Tension (PaO2), arterial 77.9 mmHg (> 70.0); Potassium - ABG Lab 3.38 mmol/L (3.70-5.30); pH, Arterial 7.46 (7.35-7.45)
[2020-12-26 02:41] LABS: Puncture Site LRA
[2020-12-26] MEDS ORDERED: Sodium Chloride 0.9% 1,000 ML IV SCH (02:45)
[2020-12-26 02:46] LABS: #Lymphocytes 1.2 thou/uL (1.20-3.40); #Monocytes 0.8 thou/uL (0.11-0.59); #Neutrophils 15.7 thou/uL (1.40-6.50); %Basophils 0.2 % (0.0-1.0); %Eosinophils 0.1 % (0.0-10.0); %Lymphocytes 6.6 % (21.0-51.0); %Monocytes 4.3 % (0.0-10.0); %Neutrophils 88.9 % (42.0-75.0); Hemoglobin 14.1 g/dL (12.0-16.0); Mean Corpuscular HGB CONC 32.4 g/dL (32.0-36.0); Mean Corpuscular Hemoglobin 25.9 pg (27.0-31.0); Mean Corpuscular Volume 80.1 fL (78.0-98.0); Mean Platelet Volume 7.1 fL (7.4-10.4); Platelet Count 302 thou/uL (130-400); RBC Distribution Width 14.2 % (11.5-14.5); Red Blood Cell (RBC) Count 5.45 mill/uL (4.20-5.40); White Blood Cell (WBC) Count 17.7 thou/uL (4.8-10.8)
[2020-12-26] MEDS ORDERED: Furosemide 20 MG/2 ML VIAL ONE ×2 (03:07→04:23)
[2020-12-26] MEDS ORDERED: Furosemide 20 MG/2 ML VIAL SLOW IVP SCH ×2 (03:15→04:30)
[2020-12-26 03:20] LABS: Anion Gap 14 mmol/L (10-20); BUN (Urea Nitrogen) 16 mg/dL (9.8-20.1); Calc. Creatinine Clearance 0 mL/min (70-130); Calcium 8.7 mg/dL (7.8-10.44); Carbon Dioxide 18 mmol/L (23-31); Cardiac Risk 5.1 (Less than 4.5); Chloride 108 mmol/L (98-107); Cholesterol 182 mg/dl (< 200 Desired); Glucose 118 mg/dL (83-110); HDL Cholesterol 36 mg/dL (>60 Neg Risk); LDL Cholesterol, Calculated 117 mg/dL; Potassium 3.6 mmol/L (3.5-5.1); Sodium 136 mmol/L (136-145); Triglycerides 144 mg/dL (Less than 150)
[2020-12-26] MEDS ORDERED: Potassium Chloride 20 MEQ in Premix Bag 1 BAG IVPB SCH (03:30)
[2020-12-26] MEDS ORDERED: Vancomycin 1 GM in Premix Bag 1 BAG IVPB SCH (04:15)
[2020-12-26] MEDS ORDERED: Albuterol Sulfate 2.5 mg/3 ml Neb NEB PRN (04:23)
[2020-12-26] MEDS ORDERED: Vancomycin 1 GM/200 ML BAG ONE (04:45)
[2020-12-26 04:55] LABS: CKMB 29.5 ng/mL (0-6.6); Critical Call CKMB RESULT DECREASING
[2020-12-26] MEDS ORDERED: hydrALAZINE 20 MG/ML VIAL ONE (05:02)
[2020-12-26] MEDS ORDERED: hydrALAZINE 20 MG/ML VIAL SLOW IVP PRN ×2 (05:30→18:30)
[2020-12-26 08:32] LABS: CKMB 23.8 ng/mL (0-6.6); Critical Call CKMB RESULT DECREASING
[2020-12-26] MEDS ORDERED: Cefepime 1 GM VIAL ONE (10:01)
[2020-12-26] MEDS: Cefepime 1 GM in Sodium Chloride 0.9% 100 ML IVPB SCH ×2 (10:21→20:56)
[2020-12-26 11:02] LABS: SARS-CoV-2 PCR by NAA Not Detected (NotDetected)
[2020-12-26] MEDS: Morphine 2 MG/ML VIAL SLOW IVP PRN (16:53)
[2020-12-26 17:11] VITALS: BMI 35.2
[2020-12-26] MEDS: Atorvastatin Calcium 40 MG TAB PO SCH (21:03)
[2020-12-27] MEDS: Acetaminophen 650 MG Suppository PR PRN (00:25)
[2020-12-27] MEDS: Sodium Chloride 0.9% 1,000 ML IV SCH ×2 (05:34→15:34)
[2020-12-27] MEDS: cefTRIAXone\\ROCEPHIN 1 GM in Sodium Chloride 0.9% 100 ML IVPB SCH (05:35)
[2020-12-27] MEDS ORDERED: Vancomycin 1.5 GRAM/300 ML BAG 1.5 GM in Premix Bag 1 BAG IVPB SCH (06:00)
[2020-12-27 06:36] LABS: #Basophils 0.1 thou/uL (0.0-0.2); #Eosinphils 0.2 thou/uL (0.0-0.7); #Lymphocytes 1.2 thou/uL (1.20-3.40); #Monocytes 0.8 thou/uL (0.11-0.59); #Neutrophils 10.3 thou/uL (1.40-6.50); %Basophils 0.7 % (0.0-1.0); %Eosinophils 1.3 % (0.0-10.0); %Lymphocytes 9.8 % (21.0-51.0); %Monocytes 6.5 % (0.0-10.0); %Neutrophils 81.7 % (42.0-75.0); Hemoglobin 13.2 g/dL (12.0-16.0); Mean Corpuscular HGB CONC 32.5 g/dL (32.0-36.0); Mean Corpuscular Hemoglobin 26.4 pg (27.0-31.0); Mean Corpuscular Volume 81.1 fL (78.0-98.0); Mean Platelet Volume 7.1 fL (7.4-10.4); Platelet Count 311 thou/uL (130-400); RBC Distribution Width 14.2 % (11.5-14.5); Red Blood Cell (RBC) Count 4.99 mill/uL (4.20-5.40); White Blood Cell (WBC) Count 12.6 thou/uL (4.8-10.8)
[2020-12-27 07:01] LABS: Anion Gap 16 mmol/L (10-20); BUN (Urea Nitrogen) 31 mg/dL (9.8-20.1); Calc. Creatinine Clearance 46 mL/min (70-130); Calcium 8.7 mg/dL (7.8-10.44); Carbon Dioxide 20 mmol/L (23-31); Chloride 109 mmol/L (98-107); Glucose 119 mg/dL (83-110); Magnesium 2.4 mg/dL (1.6-2.6); Potassium 3.6 mmol/L (3.5-5.1); Sodium 141 mmol/L (136-145)
[2020-12-27] MEDS: Cefepime 1 GM in Sodium Chloride 0.9% 100 ML IVPB SCH ×2 (08:42→21:12)
[2020-12-27] MEDS: Aspirin 325 mg Enteric Coated Tablet PO SCH (08:43)
[2020-12-27] MEDS: Bisacodyl 10 MG SUPP PR PRN (15:02)
[2020-12-27] MEDS: Atorvastatin Calcium 40 MG TAB PO SCH (21:06)
[2020-12-27] MEDS: Morphine 2 MG/ML VIAL SLOW IVP PRN (22:06)
[2020-12-28] MEDS: Morphine 2 MG/ML VIAL SLOW IVP PRN (03:46)
[2020-12-28] MEDS: Sodium Chloride 0.9% 1,000 ML IV SCH ×2 (04:27→15:22)
[2020-12-28] MEDS: cefTRIAXone\\ROCEPHIN 1 GM in Sodium Chloride 0.9% 100 ML IVPB SCH (04:27)
[2020-12-28 05:10] LABS: #Basophils 0.1 thou/uL (0.0-0.2); #Eosinphils 0.3 thou/uL (0.0-0.7); #Lymphocytes 1.2 thou/uL (1.20-3.40); #Monocytes 0.8 thou/uL (0.11-0.59); #Neutrophils 10.2 thou/uL (1.40-6.50); %Basophils 0.5 % (0.0-1.0); %Lymphocytes 9.3 % (21.0-51.0); %Monocytes 6.5 % (0.0-10.0); %Neutrophils 81.7 % (42.0-75.0); Hemoglobin 12.5 g/dL (12.0-16.0); Mean Corpuscular HGB CONC 31.9 g/dL (32.0-36.0); Mean Corpuscular Hemoglobin 25.9 pg (27.0-31.0); Mean Corpuscular Volume 81.2 fL (78.0-98.0); Mean Platelet Volume 7.4 fL (7.4-10.4); Platelet Count 271 thou/uL (130-400); RBC Distribution Width 14.2 % (11.5-14.5); Red Blood Cell (RBC) Count 4.83 mill/uL (4.20-5.40); White Blood Cell (WBC) Count 12.5 thou/uL (4.8-10.8)
[2020-12-28 05:51] LABS: Anion Gap 12 mmol/L (10-20); BUN (Urea Nitrogen) 27 mg/dL (9.8-20.1); CK (CPK) 1006 U/L (29-168); Calc. Creatinine Clearance 64 mL/min (70-130); Calcium 8.2 mg/dL (7.8-10.44); Carbon Dioxide 20 mmol/L (23-31); Chloride 114 mmol/L (98-107); Glucose 105 mg/dL (83-110); Magnesium 2.4 mg/dL (1.6-2.6); Sodium 142 mmol/L (136-145)
[2020-12-28] MEDS: Aspirin 325 mg Enteric Coated Tablet PO SCH (09:35)
[2020-12-28] MEDS: Cefepime 1 GM in Sodium Chloride 0.9% 100 ML IVPB SCH ×2 (09:36→21:16)
[2020-12-28] MEDS: Aspirin 300 MG Suppository PR SCH (09:36)
[2020-12-28] MEDS: hydrALAZINE 20 MG/ML VIAL SLOW IVP PRN ×2 (10:49→15:22)
[2020-12-28] MEDS: Atorvastatin Calcium 40 MG TAB PO SCH (21:16)
[2020-12-29] MEDS: Morphine 2 MG/ML VIAL SLOW IVP PRN ×3 (00:07→22:50)
[2020-12-29] MEDS: hydrALAZINE 20 MG/ML VIAL SLOW IVP PRN ×4 (00:29→17:55)
[2020-12-29] MEDS: Sodium Chloride 0.9% 1,000 ML IV SCH ×3 (04:01→15:08)
[2020-12-29] MEDS: cefTRIAXone\\ROCEPHIN 1 GM in Sodium Chloride 0.9% 100 ML IVPB SCH (04:01)
[2020-12-29 05:45] LABS: #Basophils 0.1 thou/uL (0.0-0.2); #Eosinphils 0.4 thou/uL (0.0-0.7); #Lymphocytes 1.3 thou/uL (1.20-3.40); #Monocytes 0.8 thou/uL (0.11-0.59); #Neutrophils 8.8 thou/uL (1.40-6.50); %Basophils 0.7 % (0.0-1.0); %Eosinophils 3.6 % (0.0-10.0); %Lymphocytes 11.2 % (21.0-51.0); %Monocytes 7.1 % (0.0-10.0); %Neutrophils 77.5 % (42.0-75.0); Hemoglobin 12.4 g/dL (12.0-16.0); Mean Corpuscular HGB CONC 31.1 g/dL (32.0-36.0); Mean Corpuscular Hemoglobin 25.3 pg (27.0-31.0); Mean Corpuscular Volume 81.4 fL (78.0-98.0); Mean Platelet Volume 7.8 fL (7.4-10.4); Platelet Count 293 thou/uL (130-400); RBC Distribution Width 14.2 % (11.5-14.5); Red Blood Cell (RBC) Count 4.89 mill/uL (4.20-5.40); White Blood Cell (WBC) Count 11.3 thou/uL (4.8-10.8)
[2020-12-29 06:09] LABS: Anion Gap 11 mmol/L (10-20); BUN (Urea Nitrogen) 24 mg/dL (9.8-20.1); CK (CPK) 500 U/L (29-168); Calc. Creatinine Clearance 80 mL/min (70-130); Calcium 8.5 mg/dL (7.8-10.44); Carbon Dioxide 20 mmol/L (23-31); Chloride 113 mmol/L (98-107); Glucose 99 mg/dL (83-110); Magnesium 2.2 mg/dL (1.6-2.6); Potassium 3.3 mmol/L (3.5-5.1); Sodium 141 mmol/L (136-145)
[2020-12-29] MEDS: Aspirin 300 MG Suppository PR SCH (08:42)
[2020-12-29] MEDS: Cefepime 1 GM in Sodium Chloride 0.9% 100 ML IVPB SCH (08:50)
[2020-12-29] MEDS: Aspirin 325 mg Enteric Coated Tablet PO SCH (08:52)
[2020-12-29] MEDS: Atorvastatin Calcium 40 MG TAB PO SCH (22:17)
[2020-12-30] MEDS: Sodium Chloride 0.9% 1,000 ML IV SCH ×3 (02:06→21:08)
[2020-12-30] MEDS: hydrALAZINE 20 MG/ML VIAL SLOW IVP PRN ×2 (03:45→10:22)
[2020-12-30 04:41] LABS: #Basophils 0.1 thou/uL (0.0-0.2); #Eosinphils 0.4 thou/uL (0.0-0.7); #Lymphocytes 1.2 thou/uL (1.20-3.40); #Monocytes 0.8 thou/uL (0.11-0.59); #Neutrophils 7.8 thou/uL (1.40-6.50); %Basophils 0.6 % (0.0-1.0); %Eosinophils 4.2 % (0.0-10.0); %Lymphocytes 11.8 % (21.0-51.0); %Monocytes 7.8 % (0.0-10.0); %Neutrophils 75.6 % (42.0-75.0); Hemoglobin 13.3 g/dL (12.0-16.0); Mean Corpuscular HGB CONC 31.7 g/dL (32.0-36.0); Mean Corpuscular Hemoglobin 25.8 pg (27.0-31.0); Mean Corpuscular Volume 81.4 fL (78.0-98.0); Mean Platelet Volume 7.4 fL (7.4-10.4); Platelet Count 285 thou/uL (130-400); RBC Distribution Width 14.3 % (11.5-14.5); Red Blood Cell (RBC) Count 5.18 mill/uL (4.20-5.40); White Blood Cell (WBC) Count 10.3 thou/uL (4.8-10.8)
[2020-12-30 05:00] LABS: Anion Gap 16 mmol/L (10-20); BUN (Urea Nitrogen) 23 mg/dL (9.8-20.1); CK (CPK) 292 U/L (29-168); Calc. Creatinine Clearance 84 mL/min (70-130); Calcium 8.5 mg/dL (7.8-10.44); Carbon Dioxide 16 mmol/L (23-31); Chloride 114 mmol/L (98-107); Glucose 93 mg/dL (83-110); Magnesium 2.1 mg/dL (1.6-2.6); Potassium 3.4 mmol/L (3.5-5.1); Sodium 143 mmol/L (136-145)
[2020-12-30] MEDS: cefTRIAXone\\ROCEPHIN 1 GM in Sodium Chloride 0.9% 100 ML IVPB SCH (05:49)
[2020-12-30] MEDS ORDERED: PROPOFOL 200 MG/20 ML VIAL ONE (08:17)
[2020-12-30] MEDS ORDERED: Ondansetron HCl/PF 4 MG/2 ML Vial IVP PRN (08:59)
[2020-12-30] MEDS ORDERED: Pantoprazole 40 MG VIAL IVP SCH (09:24)
[2020-12-30] MEDS: Aspirin 300 MG Suppository PR SCH (10:22)
[2020-12-30] MEDS: Aspirin 325 mg Enteric Coated Tablet PO SCH (10:23)
[2020-12-30] MEDS: Morphine 2 MG/ML VIAL SLOW IVP PRN ×2 (13:16→23:05)
[2020-12-30] MEDS ORDERED: Amlodipine 10 MG TAB PER TUBE SCH (13:30)
[2020-12-30] MEDS ORDERED: Losartan 25 MG TAB PER TUBE SCH (13:30)
[2020-12-30] MEDS: Apixaban 5 MG TAB PER TUBE SCH (21:08)
[2020-12-30] MEDS: Atorvastatin Calcium 40 MG TAB PER TUBE SCH (21:08)
[2020-12-31] MEDS: cefTRIAXone\\ROCEPHIN 1 GM in Sodium Chloride 0.9% 100 ML IVPB SCH (05:49)
[2020-12-31] MEDS: Losartan 25 MG TAB PO SCH (09:58)
[2020-12-31] MEDS: Pantoprazole 40 MG GRANULES PACKET PER TUBE SCH (09:58)
[2020-12-31] MEDS: Aspirin 325 MG TAB PER TUBE SCH (09:58)
[2020-12-31] MEDS: Amlodipine 10 MG TAB PER TUBE SCH (09:59)
[2020-12-31] MEDS: Apixaban 5 MG TAB PER TUBE SCH ×2 (09:59→20:45)
[2020-12-31] MEDS ORDERED: Metoprolol Tartrate 25 MG TAB PO SCH (10:00)
[2020-12-31] MEDS: Morphine 2 MG/ML VIAL SLOW IVP PRN (10:20)
[2020-12-31] MEDS ORDERED: Isosorbide Dinitrate 20 MG TAB PO SCH (14:30)
[2020-12-31] MEDS ORDERED: Furosemide 100 MG/10 ML VIAL SLOW IVP SCH (20:15)
[2020-12-31] MEDS: Atorvastatin Calcium 40 MG TAB PER TUBE SCH (20:44)
[2020-12-31] MEDS: Metoprolol Tartrate 25 MG TAB PO SCH (20:45)
[2020-12-31] MEDS: Bisacodyl 10 MG SUPP PR PRN (20:46)
[2020-12-31] MEDS: Isosorbide Dinitrate 20 MG TAB PO SCH (20:46)
[2020-12-31] MEDS: Acetaminophen 650 MG Suppository PR PRN (20:47)
[2021-01-01] MEDS: Morphine 2 MG/ML VIAL SLOW IVP PRN ×2 (03:22→20:51)
[2021-01-01] MEDS: Acetaminophen 650 MG Suppository PR PRN (08:59)
[2021-01-01] MEDS: hydrALAZINE 20 MG/ML VIAL SLOW IVP PRN (09:04)
[2021-01-01] MEDS: Amlodipine 10 MG TAB PER TUBE SCH (13:27)
[2021-01-01] MEDS: Pantoprazole 40 MG GRANULES PACKET PER TUBE SCH (13:28)
[2021-01-01] MEDS: Apixaban 5 MG TAB PER TUBE SCH (13:28)
[2021-01-01] MEDS: Aspirin 325 MG TAB PER TUBE SCH (13:28)
[2021-01-01] MEDS: Losartan 25 MG TAB PO SCH (13:28)
[2021-01-01] MEDS: Isosorbide Dinitrate 20 MG TAB PO SCH ×2 (13:28→20:21)
[2021-01-01] MEDS: Metoprolol Tartrate 25 MG TAB PO SCH ×2 (13:28→20:21)
[2021-01-01] MEDS: Labetalol HCl 100 MG/20 ML VIAL SLOW IVP PRN ×3 (16:57→23:55)
[2021-01-01] MEDS: Atorvastatin Calcium 40 MG TAB PER TUBE SCH (20:21)
[2021-01-02] MEDS: Morphine 2 MG/ML VIAL SLOW IVP PRN (00:36)
[2021-01-02] MEDS: Labetalol HCl 100 MG/20 ML VIAL SLOW IVP PRN ×2 (04:08→08:42)
[2021-01-02 05:17] LABS: Platelet Count 256 thou/uL (130-400)
[2021-01-02] MEDS: Metoprolol Tartrate 25 MG TAB PO SCH ×2 (11:17→22:09)
[2021-01-02] MEDS ORDERED: PROPOFOL 200 MG/20 ML VIAL ONE (11:21)
[2021-01-02] MEDS: Amlodipine 10 MG TAB PER TUBE SCH (12:16)
[2021-01-02] MEDS: Losartan 25 MG TAB PO SCH (12:17)
[2021-01-02] MEDS: Pantoprazole 40 MG GRANULES PACKET PER TUBE SCH (12:17)
[2021-01-02] MEDS: Isosorbide Dinitrate 20 MG TAB PO SCH ×2 (12:17→22:09)
[2021-01-02] MEDS: Aspirin 325 MG TAB PER TUBE SCH (12:17)
[2021-01-02] MEDS: hydrALAZINE 20 MG/ML VIAL SLOW IVP PRN (12:40)
[2021-01-02] MEDS: hydrALAZINE 20 MG/ML VIAL SLOW IVP SCH ×3 (16:23→23:59)
[2021-01-02] MEDS: Metoprolol Tartrate 5 MG/5 ML VIAL IVP SCH ×2 (16:50→22:08)
[2021-01-02] MEDS: Atorvastatin Calcium 40 MG TAB PER TUBE SCH (22:09)
[2021-01-03] MEDS: hydrALAZINE 20 MG/ML VIAL SLOW IVP SCH ×6 (03:32→23:30)
[2021-01-03] MEDS: Metoprolol Tartrate 5 MG/5 ML VIAL IVP SCH ×4 (04:20→21:04)
[2021-01-03 05:51] LABS: #Basophils 0.1 thou/uL (0.0-0.2); #Eosinphils 0.6 thou/uL (0.0-0.7); #Monocytes 0.6 thou/uL (0.11-0.59); %Basophils 0.8 % (0.0-1.0); %Eosinophils 6.6 % (0.0-10.0); %Lymphocytes 11.1 % (21.0-51.0); %Monocytes 6.2 % (0.0-10.0); %Neutrophils 75.3 % (42.0-75.0); Mean Corpuscular HGB CONC 31.4 g/dL (32.0-36.0); Mean Corpuscular Hemoglobin 25.6 pg (27.0-31.0); Mean Corpuscular Volume 81.4 fL (78.0-98.0); Mean Platelet Volume 9.5 fL (7.4-10.4); Platelet Count 177 thou/uL (130-400); RBC Distribution Width 14.5 % (11.5-14.5); Red Blood Cell (RBC) Count 5.09 mill/uL (4.20-5.40); White Blood Cell (WBC) Count 9.3 thou/uL (4.8-10.8)
[2021-01-03 06:27] LABS: Anion Gap 14 mmol/L (10-20); BUN (Urea Nitrogen) 20 mg/dL (9.8-20.1); Calc. Creatinine Clearance 82 mL/min (70-130); Carbon Dioxide 25 mmol/L (23-31); Chloride 109 mmol/L (98-107); Glucose 114 mg/dL (83-110); Sodium 144 mmol/L (136-145)
[2021-01-03] MEDS: Aspirin 325 MG TAB PER TUBE SCH (08:40)
[2021-01-03] MEDS: Metoprolol Tartrate 25 MG TAB PO SCH ×2 (08:40→19:51)
[2021-01-03] MEDS: Isosorbide Dinitrate 20 MG TAB PO SCH ×2 (08:40→19:51)
[2021-01-03] MEDS: Losartan 25 MG TAB PO SCH (08:40)
[2021-01-03] MEDS: Pantoprazole 40 MG GRANULES PACKET PER TUBE SCH (08:40)
[2021-01-03] MEDS: Amlodipine 10 MG TAB PER TUBE SCH (08:40)
[2021-01-03] MEDS: Morphine 2 MG/ML VIAL SLOW IVP PRN (09:21)
[2021-01-03] MEDS ORDERED: Nitroglycerin 0.4 MG TAB (25 Tab Bottle) SL PRN (11:05)
[2021-01-03] MEDS ORDERED: Morphine 4 MG/ML VIAL SLOW IVP PRN (15:13)
[2021-01-03] MEDS: Atorvastatin Calcium 40 MG TAB PER TUBE SCH (19:50)
[2021-01-04] MEDS: Labetalol HCl 100 MG/20 ML VIAL SLOW IVP PRN ×2 (00:42→18:16)
[2021-01-04] MEDS: hydrALAZINE 20 MG/ML VIAL SLOW IVP SCH ×3 (02:57→13:17)
[2021-01-04] MEDS: Metoprolol Tartrate 5 MG/5 ML VIAL IVP SCH ×2 (03:50→11:58)
[2021-01-04 05:27] LABS: #Basophils 0.1 thou/uL (0.0-0.2); #Eosinphils 0.3 thou/uL (0.0-0.7); #Monocytes 0.5 thou/uL (0.11-0.59); #Neutrophils 6.3 thou/uL (1.40-6.50); %Basophils 0.8 % (0.0-1.0); %Eosinophils 3.2 % (0.0-10.0); %Lymphocytes 12.6 % (21.0-51.0); %Monocytes 6.5 % (0.0-10.0); Hemoglobin 12.3 g/dL (12.0-16.0); Mean Corpuscular HGB CONC 31.3 g/dL (32.0-36.0); Mean Corpuscular Hemoglobin 25.7 pg (27.0-31.0); Mean Corpuscular Volume 81.9 fL (78.0-98.0); Mean Platelet Volume 8.4 fL (7.4-10.4); Platelet Count 262 thou/uL (130-400); RBC Distribution Width 14.5 % (11.5-14.5); Red Blood Cell (RBC) Count 4.79 mill/uL (4.20-5.40); White Blood Cell (WBC) Count 8.2 thou/uL (4.8-10.8)
[2021-01-04 06:51] LABS: Calcium 8.8 mg/dL (7.8-10.44); Chloride 111 mmol/L (98-107); Potassium 3.5 mmol/L (3.5-5.1); Sodium 144 mmol/L (136-145)
[2021-01-04 06:52] LABS: Glucose 104 mg/dL (83-110)
[2021-01-04 06:53] LABS: Anion Gap 14 mmol/L (10-20); Carbon Dioxide 23 mmol/L (23-31)
[2021-01-04 06:55] LABS: Calc. Creatinine Clearance 84 mL/min (70-130)
[2021-01-04 06:56] LABS: BUN (Urea Nitrogen) 25 mg/dL (9.8-20.1)
[2021-01-04] MEDS ORDERED: Succinylcholine 200 MG/10 ml SYRINGE FS ONE (09:55)
[2021-01-04] MEDS ORDERED: Rocuronium Bromide 10 MG/ML (10ML VIAL) ONE (09:55)
[2021-01-04] MEDS ORDERED: PHENYLEPHRINE-NS 100 MCG/ML 10 ML SYRINGE ONE (09:55)
[2021-01-04] MEDS ORDERED: PROPOFOL 200 MG/20 ML VIAL ONE (09:55)
[2021-01-04 10:39] LABS: Troponin I Less than 0.010 ng/mL (< 0.028)
[2021-01-04] MEDS ORDERED: Promethazine HCl 25 MG/ML VIAL IVPB PRN (10:49)
[2021-01-04] MEDS ORDERED: Ondansetron HCl/PF 4 MG/2 ML Vial IVP PRN (10:49)
[2021-01-04] MEDS: Aspirin 325 MG TAB PER TUBE SCH (10:56)
[2021-01-04] MEDS: Isosorbide Dinitrate 20 MG TAB PO SCH ×2 (10:56→20:27)
[2021-01-04] MEDS: Losartan 25 MG TAB PO SCH (10:56)
[2021-01-04] MEDS: Amlodipine 10 MG TAB PER TUBE SCH (10:56)
[2021-01-04] MEDS: Pantoprazole 40 MG GRANULES PACKET PER TUBE SCH (10:57)
[2021-01-04] MEDS: Metoprolol Tartrate 25 MG TAB PO SCH ×2 (10:57→20:27)
[2021-01-04] MEDS: Lactated Ringer's 1,000 ML IV SCH (13:17)
[2021-01-04] MEDS ORDERED: Potassium Chloride 20 MEQ TAB PO SCH (15:00)
[2021-01-04] MEDS ORDERED: Magnesium 2 GM/50 ML 2 GM in Premix Bag 1 BAG IVPB SCH (15:00)
[2021-01-04] MEDS: Potassium Chloride 20 MEQ in Premix Bag 1 BAG IVPB SCH ×2 (20:26→23:06)
[2021-01-04] MEDS: Atorvastatin Calcium 40 MG TAB PER TUBE SCH (20:27)
[2021-01-05 04:51] LABS: #Basophils 0.1 thou/uL (0.0-0.2); #Eosinphils 0.1 thou/uL (0.0-0.7); #Lymphocytes 1.2 thou/uL (1.20-3.40); %Basophils 0.7 % (0.0-1.0); %Eosinophils 1.3 % (0.0-10.0); %Lymphocytes 11.4 % (21.0-51.0); %Monocytes 9.2 % (0.0-10.0); %Neutrophils 77.4 % (42.0-75.0); Hemoglobin 11.6 g/dL (12.0-16.0); Mean Corpuscular HGB CONC 31.8 g/dL (32.0-36.0); Mean Corpuscular Hemoglobin 26.1 pg (27.0-31.0); Mean Platelet Volume 8.2 fL (7.4-10.4); Platelet Count 240 thou/uL (130-400); RBC Distribution Width 14.6 % (11.5-14.5); Red Blood Cell (RBC) Count 4.46 mill/uL (4.20-5.40); White Blood Cell (WBC) Count 10.3 thou/uL (4.8-10.8)
[2021-01-05 05:19] LABS: Anion Gap 12 mmol/L (10-20); BUN (Urea Nitrogen) 30 mg/dL (9.8-20.1); Calc. Creatinine Clearance 70 mL/min (70-130); Calcium 8.7 mg/dL (7.8-10.44); Carbon Dioxide 26 mmol/L (23-31); Chloride 110 mmol/L (98-107); Glucose 105 mg/dL (83-110); Magnesium 2.9 mg/dL (1.6-2.6); Potassium 4.1 mmol/L (3.5-5.1); Sodium 144 mmol/L (136-145)
[2021-01-05] MEDS: Isosorbide Dinitrate 20 MG TAB PO SCH (08:55)
[2021-01-05] MEDS: Losartan 25 MG TAB PO SCH (08:55)
[2021-01-05] MEDS: Aspirin 325 MG TAB PER TUBE SCH (08:55)
[2021-01-05] MEDS: Lactated Ringer's 1,000 ML IV SCH (09:17)
[2021-01-05] MEDS: Amlodipine 10 MG TAB PER TUBE SCH (10:08)
[2021-01-05] MEDS: Metoprolol Tartrate 25 MG TAB PO SCH ×2 (10:08→21:16)
[2021-01-05] MEDS ORDERED: Apixaban 5 MG TAB PO SCH (11:15)
[2021-01-05] MEDS: Pepto Bismol Chew TAB PO SCH ×2 (16:33→21:17)
[2021-01-05] MEDS: metroNIDAZOLE 250 MG TAB PO SCH ×2 (16:33→21:16)
[2021-01-05] MEDS: Atorvastatin Calcium 40 MG TAB PER TUBE SCH (21:16)
[2021-01-05] MEDS: Apixaban 5 MG TAB PO SCH (21:16)
[2021-01-05] MEDS: Doxycycline 100 MG CAP PO SCH (21:17)
[2021-01-05] MEDS: Pantoprazole 40 MG GRANULES PACKET PER TUBE SCH (21:17)
[2021-01-06] MEDS: Lactated Ringer's 1,000 ML IV SCH (04:20)
[2021-01-06] MEDS: Doxycycline 100 MG CAP PO SCH (08:56)
[2021-01-06] MEDS: Pepto Bismol Chew TAB PO SCH ×3 (08:56→16:48)
[2021-01-06] MEDS: Losartan 25 MG TAB PO SCH (08:56)
[2021-01-06] MEDS: Amlodipine 10 MG TAB PER TUBE SCH (08:56)
[2021-01-06] MEDS: Apixaban 5 MG TAB PO SCH (08:56)
[2021-01-06] MEDS: Metoprolol Tartrate 25 MG TAB PO SCH (08:56)
[2021-01-06] MEDS: Pantoprazole 40 MG GRANULES PACKET PER TUBE SCH (08:57)
[2021-01-06] MEDS: metroNIDAZOLE 250 MG TAB PO SCH ×3 (08:57→16:48)
[2021-01-06 15:48] VITALS: BP 148/70; TEMP 98
== END 2021-01-06 18:06 | DRG 64 ==
LOC: ERS 20:39 → ERHOLD 23:14 → 2SE 12-26 15:02
PROVIDERS: ADMIT Internal Medicine; ATTEND Internal Medicine
PROC: 0DB78ZX Excision of Stomach, Pylorus, Via Natural or Artificial Opening Endoscopic, Diagnostic (ICD-10-PCS; principal; 2020-12-30)
PROC: 0DH63UZ Insertion of Feeding Device into Stomach, Percutaneous Approach (ICD-10-PCS; 2020-12-30)
PROC: 0DW68UZ Revision of Feeding Device in Stomach, Via Natural or Artificial Opening Endoscopic (ICD-10-PCS; 2021-01-02)
PROC: 0T9B70Z Drainage of Bladder with Drainage Device, Via Natural or Artificial Opening (ICD-10-PCS; 2021-01-03)
PROC: 0DP68UZ Removal of Feeding Device from Stomach, Via Natural or Artificial Opening Endoscopic (ICD-10-PCS; 2021-01-04)
PROC: 0DH63UZ Insertion of Feeding Device into Stomach, Percutaneous Approach (ICD-10-PCS; 2021-01-04)
DX: I63.9 Cerebral infarction, unspecified (principal); I50.33 Acute on chronic diastolic (congestive) heart failure; G93.41 Metabolic encephalopathy; Z66 Do not resuscitate; Z20.822 Contact with and (suspected) exposure to COVID-19; I21.A1 Myocardial infarction type 2; J18.9 Pneumonia, unspecified organism; G81.91 Hemiplegia, unspecified affecting right dominant side; N17.9 Acute kidney failure, unspecified; I13.0 Hypertensive heart and chronic kidney disease with heart failure and stage 1 through stage 4 chronic kidney disease, or unspecified chronic kidney disease; N39.0 Urinary tract infection, site not specified; L03.116 Cellulitis of left lower limb; L03.115 Cellulitis of right lower limb; M62.82 Rhabdomyolysis; K94.23 Gastrostomy malfunction; R47.01 Aphasia; R29.726 NIHSS score 26; F41.9 Anxiety disorder, unspecified; F32.9 Major depressive disorder, single episode, unspecified; I25.10 Atherosclerotic heart disease of native coronary artery without angina pectoris; E78.5 Hyperlipidemia, unspecified; I48.0 Paroxysmal atrial fibrillation; F51.04 Psychophysiologic insomnia; N18.30 Chronic kidney disease, stage 3 unspecified; I16.0 Hypertensive urgency; E03.9 Hypothyroidism, unspecified; H35.30 Unspecified macular degeneration; K59.09 Other constipation; Z96.643 Presence of artificial hip joint, bilateral; R13.12 Dysphagia, oropharyngeal phase; K25.9 Gastric ulcer, unspecified as acute or chronic, without hemorrhage or perforation; K44.9 Diaphragmatic hernia without obstruction or gangrene; R33.9 Retention of urine, unspecified; Y83.3 Surgical operation with formation of external stoma as the cause of abnormal reaction of the patient, or of later complication, without mention of misadventure at the time of the procedure; R07.9 Chest pain, unspecified; B96.81 Helicobacter pylori [H. pylori] as the cause of diseases classified elsewhere; Z87.891 Personal history of nicotine dependence; Z88.8 Allergy status to other drugs, medicaments and biological substances; Z79.01 Long term (current) use of anticoagulants; Z79.82 Long term (current) use of aspirin; Z79.899 Other long term (current) drug therapy; Z86.73 Personal history of transient ischemic attack (TIA), and cerebral infarction without residual deficits; Z95.1 Presence of aortocoronary bypass graft; Z90.710 Acquired absence of both cervix and uterus; Z95.4 Presence of other heart-valve replacement; Z78.1 Physical restraint status
CPT/HCPCS: 36415; 36416; 36600; 51701; 70450; 70496; 70498; 70551; 71045; 72125; 72170; 74150; 80048; 80053; 80061; 81003; 81015; 82140; 82550; 82553; 82565; 82805; 83605; 83690; 83735; 83880; 84484; 85014; 85018; 85025; 85049; 85610; 85730; 87040; 87077; 87086; 87186; 88305; 88312; 90471; 90732; 93005; 93306; 94640; 94660; 95712; 95819; 95957; 96365; 96367; 96375; C9113; G0009; J0360; J0690; J0692; J0696; J0744; J1940; J2270; J2704; J3370; J3475; J3480; J3490; J7620; Q9967; U0003; U0005

== ENCOUNTER 2023-08-09 19:09 | Emergency (ER) | payer MEDICARE, MEDICAID ==
[~2023-08-09 19:09] MED LIST changes: +GASTROGRAFIN 30 ML BOT ONE; -Iopamidol-370 76% 500 ML 1 ML ONE
[2023-08-09] MEDS ORDERED: Water For Inject, Bacteriostat 30 ML ONE (20:01)
== END 2023-08-09 22:20 | disposition home or self-care (01) ==
LOC: ERS 19:09
DX: K94.23 Gastrostomy malfunction (principal); I25.10 Atherosclerotic heart disease of native coronary artery without angina pectoris; I48.91 Unspecified atrial fibrillation; I10 Essential (primary) hypertension; E66.9 Obesity, unspecified; Z86.73 Personal history of transient ischemic attack (TIA), and cerebral infarction without residual deficits; Z87.891 Personal history of nicotine dependence
CPT/HCPCS: 74018; Q9963